=== PATIENT | female | born 1950 | race Caucasian/White ===

== ENCOUNTER → 2018-09-23 10:27 | Outpatient (CLI) | payer MEDICARE, SELFPAY ==
--- NOTE | 2018-09-23 | DI.MG.S_ITS ---
BILATERAL DIGITAL SCREENING MAMMOGRAM 3D/2D WITH CAD: 09/23/2018 CLINICAL: Routine screening. Comparison is made to exams dated: 09/20/2017 mammogram, 09/16/2016 mammogram, and 09/15/2015 mammogram - [facility]. The tissue of both breasts is heterogeneously dense. This may lower the sensitivity of mammography. Current study was also evaluated with a Computer Aided Detection (CAD) system. No significant masses, calcifications, or other findings are seen in either breast. There has been no significant interval change. IMPRESSION: NEGATIVE There is no mammographic evidence of malignancy. A 1 year screening mammogram is recommended. This exam was interpreted at Station ID: [id number]. NOTE: For mammograms, a report in lay terms will be sent to the patient. Approximately 15% of breast malignancies will not be visualized mammographically. In the management of a palpable breast mass, a negative mammogram must not discourage biopsy of a clinically suspicious lesion. Electronically Signed By: Chas ward/steven:09/25/2018 15:49:45 letter sent: Normal Exam ACR BI-RADS Category 1: Negative 3341F
== END ==
PROVIDERS: Family Provider Family Medicine; PCP Family Medicine; Visit Provider Family Medicine
DX: Z12.31 Encounter for screening mammogram for malignant neoplasm of breast (principal)
CPT/HCPCS: 77063; 77067

== ENCOUNTER → 2019-10-03 11:02 | Outpatient (CLI) | payer MEDICARE, SELFPAY ==
--- NOTE | 2019-10-03 | DI.MG.S_ITS ---
BILATERAL DIGITAL SCREENING MAMMOGRAM 3D/2D WITH CAD: 10/03/2019 CLINICAL: Routine screening. Comparison is made to exams dated: 09/20/2017 mammogram and 09/16/2016 mammogram - [facility]. The tissue of both breasts is heterogeneously dense. This may lower the sensitivity of mammography. Current study was also evaluated with a Computer Aided Detection (CAD) system. No significant masses, calcifications, or other findings are seen in either breast. There has been no significant interval change. IMPRESSION: NEGATIVE There is no mammographic evidence of malignancy. A 1 year screening mammogram is recommended. This exam was interpreted at Station ID: [id number]. NOTE: For mammograms, a report in lay terms will be sent to the patient. Approximately 15% of breast malignancies will not be visualized mammographically. In the management of a palpable breast mass, a negative mammogram must not discourage biopsy of a clinically suspicious lesion. Electronically Signed By: Jennifer francisco/steven:10/03/2019 15:34:11 letter sent: Normal Exam ACR BI-RADS Category 1: Negative 3341F
== END ==
PROVIDERS: PCP Family Medicine; Visit Provider Family Medicine
DX: Z12.31 Encounter for screening mammogram for malignant neoplasm of breast (principal)
CPT/HCPCS: 77063; 77067

== ENCOUNTER → 2020-07-23 11:02 | Outpatient (CLI) | payer MEDICARE, SELFPAY ==
--- NOTE | 2020-07-23 | DI.US.S_ITS ---
PROCEDURE: US ABDOMEN COMPLETE INDICATIONS: RIGHT UPPER QUADRANT PAIN TECHNIQUE: Real-time scanning was performed of the abdominal and retroperitoneal organs, with image documentation. COMPARISON: [facility], CR, XR CHEST 2V, 07/23/2020, 11:00. [facility], US, ABDOMEN COMPLETE, 06/27/2015, 15:37. FINDINGS: Liver: Liver is normal in size and homogeneous in echotexture, increased in echogenicity consistent with fatty infiltration. Gallbladder: The gallbladder appears normal. Biliary ducts: Intrahepatic bile ducts are non-dilated. Extrahepatic bile duct caliber measures 2.5 mm. Normal is 6-7 mm or less in diameter, or 10 mm or less post-cholecystectomy. Pancreas: Visualized portions of the pancreas are sonographically normal. Spleen: Spleen is normal in size and homogeneous in echotexture. Kidneys: Kidneys are asymmetric in size and echotexture with right renal cortical atrophy. Right kidney measures 7.4 cm long; left kidney measures 9.7 cm long. No hydronephrosis or nephrolithiasis. No solid masses. Aorta: Visualized aorta is normal in caliber at less than 3 cm. Iliacs: Proximal common iliac arteries are normal in caliber at less than 2.5 cm. IVC: Intrahepatic inferior vena cava is patent. Miscellaneous: No free abdominal fluid. IMPRESSION: Fatty infiltration throughout the liver, no focal liver lesion seen. Note is made of asymmetric renal cortical atrophy on the right, without current hydronephrosis or visualized nephrolithiasis. Dictated by: Carmelo Bosch M.D. on 07/23/2020 at 12:09 Approved by: Carmelo Bosch M.D. on 07/23/2020 at 12:11
--- NOTE | 2020-07-23 | DI.RAD.S_ITS ---
PROCEDURE: XR CHEST 2V INDICATIONS: COUGH, RIGHT RIB AREA PAIN TECHNIQUE: 2 views of the chest were acquired. COMPARISON: [facility], CHEST 2 VIEW, 08/10/2016, 11:05. [facility], CHEST 1 VIEW, 06/29/2015, 11:16. FINDINGS: Surgical changes and devices: None. Lungs and pleura: Lungs are clear. No pleural effusions or pneumothorax. Mediastinum: Mediastinal contours are normal. Heart size is normal. Bones and chest wall: No suspicious bony abnormalities. Soft tissues appear unremarkable. IMPRESSION: Normal for age, source of current cough symptoms is not seen. Dictated by: Carmelo Bosch M.D. on 07/23/2020 at 12:09 Approved by: Carmelo Bosch M.D. on 07/23/2020 at 12:09
== END ==
PROVIDERS: PCP Family Medicine; Referring Provider Family Medicine; Visit Provider Family Medicine
DX: R05 Cough (principal); R07.81 Pleurodynia; R10.11 Right upper quadrant pain; K76.0 Fatty (change of) liver, not elsewhere classified
CPT/HCPCS: 71046; 76700

== ENCOUNTER → 2020-10-08 17:08 | Outpatient (CLI) | payer MEDICARE, SELFPAY ==
--- NOTE | 2020-10-08 17:10 | DI.MG.S_ITS ---
BILATERAL DIGITAL SCREENING MAMMOGRAM 3D/2D WITH CAD: 10/08/2020 CLINICAL: Routine screening. Comparison is made to exams dated: 10/03/2019 mammogram, 09/23/2018 mammogram, and 09/20/2017 mammogram - [facility]. There are scattered fibroglandular elements in both breasts. Current study was also evaluated with a Computer Aided Detection (CAD) system. No significant masses, calcifications, or other findings are seen in either breast. There has been no significant interval change. IMPRESSION: NEGATIVE There is no mammographic evidence of malignancy. A 1 year screening mammogram is recommended. This exam was interpreted at Station ID: [id number]. NOTE: For mammograms, a report in lay terms will be sent to the patient. Approximately 15% of breast malignancies will not be visualized mammographically. In the management of a palpable breast mass, a negative mammogram must not discourage biopsy of a clinically suspicious lesion. Electronically Signed By: Jennifer francisco/steven:10/09/2020 08:55:36 letter sent: Normal Exam ACR BI-RADS Category 1: Negative 3341F
== END ==
PROVIDERS: PCP Family Medicine; Referring Provider Family Medicine; Visit Provider Family Medicine
DX: Z12.31 Encounter for screening mammogram for malignant neoplasm of breast (principal)
CPT/HCPCS: 77063; 77067

== ENCOUNTER → 2021-02-19 14:08 | Outpatient (CLI) | payer MEDICARE, SELFPAY | PROVIDERS: PCP Family Medicine; Referring Provider Family Medicine; Visit Provider Family Medicine | DX: M81.0 Age-related osteoporosis without current pathological fracture (principal); Z78.0 Asymptomatic menopausal state; Z87.891 Personal history of nicotine dependence | CPT/HCPCS: 77080 ==

== ENCOUNTER → 2021-07-20 10:42 | Outpatient (CLI) | payer MEDICARE, SELFPAY ==
--- NOTE | 2021-07-20 | DI.RAD.S_ITS ---
PROCEDURE: XR CHEST 2V INDICATIONS: acute cough TECHNIQUE: 2 views of the chest were acquired. COMPARISON: [facility], CR, XR CHEST 2V, 07/23/2020, 11:00. FINDINGS: Surgical changes and devices: None. Lungs and pleura: Enlarging airspace opacity is seen within the left upper lung zone, now measuring 5.1 cm; previously measuring 1.6 cm. No lobar consolidation, pleural effusions or pneumothorax. Mildly coarsened interstitial markings, which may reflect emphysematous change. Mediastinum: Mediastinal contours are normal. Heart size is normal. Bones and chest wall: No suspicious bony abnormalities. Soft tissues appear unremarkable. IMPRESSION: Round airspace opacity in the left upper lung zone, concerning for neoplastic process. Consider CT imaging for further evaluation. Dictated by: Ruben Contreras M.D. on 07/20/2021 at 11:25 Approved by: Ruben Contreras M.D. on 07/20/2021 at 11:27
== END ==
PROVIDERS: PCP Family Medicine; Referring Provider Family Medicine; Visit Provider Family Medicine
DX: R05.1 Acute cough (principal)
CPT/HCPCS: 71046

== ENCOUNTER → 2021-07-23 08:50 | Outpatient (CLI) | payer MEDICARE, SELFPAY ==
--- NOTE | 2021-07-23 | DI.CT.S_ITS ---
PROCEDURE: CT SINUS SCREEN WO CON INDICATIONS: Acute cough, syncope TECHNIQUE: Noncontrast 3.0 mm axial images acquired from the frontal sinuses to the mid-sella, with coronal and sagittal reformats. For radiation dose reduction, the following was used: automated exposure control, adjustment of mA and/or kV according to patient size. COMPARISON: None. FINDINGS: Maxillary Sinuses: The maxillary sinuses are clear without significant mucosal thickening or air-fluid levels. The ostiomeatal units are patent bilaterally. No significant Faith ethmoid air cells present along the inferior medial orbital garcia. Sphenoid Sinuses: The sphenoethmoidal recesses are patent and unobstructed. The sphenoid sinuses are clear. Sphenoid pneumatization pattern is post-sellar, extending beyond the dorsum sella to the dorsal cortex of the clivus. No [place] or sphenoethmoidal air cells present. The optic nerve is well covered. Frontal Sinuses: The frontal recesses are both patent. The frontal sinuses are clear. Ethmoid Sinuses: The ethmoid air cells are clear without significant mucosal thickening or air-fluid levels. The fovea ethmoidalis and cribriform plate are unremarkable. The lamina papyracea are both structurally intact. Lateral lamella are symmetric. Nasal Cavity and Septum: There is pneumatization of the right middle terminate present. Nasal septum is intact without perforation. Skull Base: The anterior cranial fossa and pituitary sella are unremarkable. No evidence of bony dehiscence. Both osseous orbits and contents are within normal limits. Small incidental radicular cyst noted associated with the left maxillary 1st premolar dentition. IMPRESSION: 1. Incidental right ranjith bullosa. Otherwise unremarkable CT of the paranasal sinuses Approved by: Tyrone Bonilla M.D. on 07/23/2021 at 10:59
[2021-07-23 09:31] LABS: BUN Creatinine Ratio 14.5 (6-22); Blood Urea Nitrogen 10 mg/dL (7-17); Estimated Glomerular Filt Rate > 60.0 mL/min (>60)
--- NOTE | 2021-07-23 09:36 | DI.CT.S_ITS ---
PROCEDURE: CT CHEST W CON INDICATIONS: Acute cough, syncope TECHNIQUE: After the administration of intravenous contrast, 5 mm thick sections acquired from the pulmonary apices to the posterior costophrenic angles. 1 mm axial lung, 5 mm thick coronal and sagittal reformats and 7 mm axial MIP were acquired. For radiation dose reduction, the following was used: automated exposure control, adjustment of mA and/or kV according to patient size. COMPARISON: CT, CHEST/ABD/PEL WITH CONTRAST, 07/02/2015, 10:42. [facility], CR, CHEST 2 VIEW, 08/10/2016, 11:05. [facility], CR, XR CHEST 2V, 07/23/2020, 11:00. [facility], CR, XR CHEST 2V, 07/20/2021, 11:07. FINDINGS: Image quality: Excellent. Lungs and pleura: There is a 3.8 x 4.6 cm mass in the superior segment of left lower lobe, suspicious for lung cancer. A 0.6 cm spiculated nodule is present in the right middle lobe. This could represent a small synchronous lung cancer. Multiple peripheral ground-glass opacities are present bilaterally, suspicious for atypical pneumonia. Trace left pleural effusion adjacent to the left lower lobe lung mass. Mild emphysema. No pneumothorax. Central and peripheral airways are patent and normal in caliber. Mediastinum: Heart size is normal. No pericardial effusion. There is a 1 cm left hilar lymph node suspicious for metastasis.. Thoracic aorta and central pulmonary arteries are normal in size. Esophagus is normal in caliber. No hiatal hernia. Bones and chest wall: No suspicious bony lesions. No vertebral body compression fractures. No axillary or supraclavicular adenopathy by size criteria. There is a 1.2 cm nodule in the right thyroid lobe. Abdomen: Visualized upper abdominal solid organs appear normal. Upper abdominal bowel loops are normal in caliber. IMPRESSION: 1. A 3.8 x 4.6 cm mass in the superior segment of the left lower lobe, highly suspicious for primary lung cancer. A infectious etiology is felt less likely although not entirely excluded. A PET-CT is suggested for further evaluation. This mass is amenable for CT guided percutaneous biopsy if clinically indicated. 2. There is a 0.6 cm spiculated nodule in the right middle lobe, suspicious for a small synchronous lung cancer. This nodule can be evaluated by FDG PET as well. 3. A 1 cm left hilar lymph node is present, suspicious for metastasis. 4. Trace left pleural effusion adjacent to the large left lung mass. 5. Bilateral peripheral ground-glass nodules or nodular infiltrates with morphology and distribution suspicious for COVID-19 pneumonia. Metastatic disease is a differential diagnosis in light of suspected lung cancer. Recommend clinical correlation. 6. Mild emphysema. 7. A 1.2 cm nodule in the right thyroid lobe. Thyroid ultrasound suggested for follow-up The result was discussed with Dr. Alejandre. Dictated by: Jean Watson M.D. on 07/23/2021 at 10:27 Approved by: Jean Watson M.D. on 07/23/2021 at 10:49
== END ==
PROVIDERS: PCP Family Medicine; Referring Provider Family Medicine; Visit Provider Family Medicine
DX: R05.1 Acute cough (principal); R55 Syncope and collapse; R91.8 Other nonspecific abnormal finding of lung field; I10 Essential (primary) hypertension; J34.3 Hypertrophy of nasal turbinates; R59.0 Localized enlarged lymph nodes; J43.9 Emphysema, unspecified; E04.1 Nontoxic single thyroid nodule
CPT/HCPCS: 36415; 70486; 71260; 82565; 84520

== ENCOUNTER → 2021-08-21 09:04 | Outpatient (CLI) | payer MEDICARE, SELFPAY ==
[2021-08-21 11:52] LABS: COVID19 -Nasal RAPID Negative (Negative)
--- NOTE | 2021-08-24 | PATH_ITS ---
[facility] Accession Number: [id number] . 01 Material submitted: . lung - LUNG . 02 Diagnosis: Lung Mass, Superior Segment of Left Lower Lobe, Needle Core Biopsy: Consistent with pulmonary adenocarcinoma by immunohistochemistry studies. MRV 08/27/2021 1701 Local . 02 Comment: As part of routine quality assurance specialist, Dr. Ramos also reviewed this case and agrees with the diagnosis. . Results discussed with Dr. Alejandre on 08-27-21 at approximately 1:42 p.m. . . 02 Electronically signed: . Michelle Jean-Baptiste MD, Pathologist NPI- [id number] . 01 Gross description: . LUNG: Received in formalin are 2 fragment(s) of rowe, soft tissue measuring 0.4 x 0.1 x 0.1 cm to 0.6 x 0.1 x 0.1 cm submitted entirely in 1 cassette(s) /KENDRICK 08/25/2021 0126 Local . 02 Microscopic: . Immunohistochemical stains were performed to further evaluate the cells of interest. The control stains showed appropriate reactivity. . RESULTS: SUMEET: Positive. TTF1: Positive. Napsin-A: Positive. P40: Negative. P63: Scattered positive. . The neoplasm is immunopositive for SUMEET, TTF-1, and Napsin-A with scattered cells positive for p63. The neoplasm is immunonegative for p40. These findings support an interpretation of pulmonary adenocarcinoma, in the appropriate clinical setting. The abscence of p40 immunostaining mitigates against squamous cell differentiation. Very scant tissue remains for further characterization (i.e. there is likely insufficient tissue for molecular studies). . * This test was developed and its performance characteristics determined by [employer]. It has not been cleared or approved by the U.S. Food and Drug Administration. The FDA has determined that such clearance or approval is not necessary. This test is used for clinical purposes. It should not be regarded as investigational or for research. . 02 Pathologist provided ICD-10: R91.8, D49.1 . 02 CPT . 754764, Q41486, E25363 Performed at: 01 [facility] [address] [address], [place], [place] [id number] MD Emmanuel Vega MD Phone: [phone] Performed at: 02 [facility] [id number] [place] [id number] MD Ayala Ramos MD Phone: [phone]
== END ==
PROVIDERS: PCP Family Medicine; Visit Provider Nurse Practitioner Family
DX: Z20.822 Contact with and (suspected) exposure to COVID-19 (principal)
CPT/HCPCS: 87635; C9803

== ENCOUNTER 2021-08-24 07:08 | Outpatient (CLI) | payer MEDICARE, SELFPAY ==
[2021-08-24] VITALS (9 sets, daily range): BP systolic 138–191; BP diastolic 75–90; PULSE 88–126; RESP 16–20; TEMP 36.6–36.8; O2SAT 97–100; BMI 25.0
--- NOTE | 2021-08-24 | DI.CT.S_ITS ---
PROCEDURE: CT BIOPSY LUNG LT Sedation analgesia for 20 minutes. INDICATIONS: LUNG MASS TECHNIQUE: The indications, alternatives, benefits, risks, and possible complications of the procedure were communicated to the patient. Informed written consent from the patient was obtained and placed in the chart. Continuous EKG and hemodynamic monitoring was started by trained personnel. The patient was brought to the CT suite and manager professional development spiral CT imaging was performed with localization grid. The appropriate site for percutaneous access to the biopsy target was marked, was prepped and draped sterilely, and was infused with local anaesthesia. Under CT guidance, a core biopsy trocar and needle set was advanced to the biopsy target, and specimen(s) were obtained. The trocar and needle were then removed, and the patient was sent for post-procedure monitoring. COMPARISON: [facility], DC, NM PET CT FUSION SKULL 2 THIGH, 08/12/2021, 9:45. [facility], CT, CT CHEST W CON, 07/23/2021, 9:47. [facility], CR, XR CHEST 1V, 08/24/2021, 10:29. FINDINGS: Biopsy site: Left lower lobe lung mass. Needle: 20 gauge biopsy needle with introducer trocar. Number of passes: 3 Medications: 1% lidocaine for local anaesthesia. IV Fentanyl and Versed for conscious sedation for 20 minutes (see nursing record). Complications: None. IMPRESSION: Successful CT-guided biopsy of left lower lobe lung mass. No immediate complications. Dictated by: Susanna Espitia MD, PhD on 08/24/2021 at 10:51 Approved by: Susanna Espitia MD, PhD on 08/24/2021 at 10:53
[2021-08-24 07:30] LABS: Add Manual Diff / Slide Review NO; Basophils Absolute Auto 0 /uL (0-100); Basophils Percent Auto 0.8 % (0-2); Eosinophils Absolute Auto 100 /uL (0-450); Hematocrit 35.5 % (36-46); Hemoglobin 11.8 g/dL (12.0-16.0); Lymphocytes Absolute Auto 1100 /uL (1100-4500); Lymphocytes Percent Auto 20.2 % (25-40); Mean Corpuscular HGB Conc 33.2 % (30-36); Mean Corpuscular Hemoglobin 29.6 PG (26-34); Monocytes Absolute Auto 500 /uL (0-900); Monocytes Percent Auto 9.4 % (3-14); Neutrophils Absolute Auto 3700 /uL (1500-7000); Neutrophils Percent Auto 67.6 % (50-75); Platelet Count 494 X10^3/uL (150-400); Red Blood Cell Count 3.99 X10^6/uL (4.0-5.2); Red Cell Distribution Width 13.3 % (11.6-14.8); White Blood Cell Count 5.5 X10^3/uL (4.5-11.0)
[2021-08-24 07:37] LABS: Prothrombin Time 11.3 SECONDS (10.1-12.7)
[2021-08-24] MEDS: fentaNYL 100 MCG/2 ML INJ 50 MCG IV (08:29)
[2021-08-24] MEDS: MIDAZOLAM 2 MG/2 ML VIAL 1 MG IV (08:30)
--- NOTE | 2021-08-24 09:25 | SUR.PHASEII ---
Assumed pt from Shreya ALY. Bandaid with scant shadow drainage. Denied any chest pain, SOB, no cough noted, pt coughing lots preop. Call light in reach, VSS monitored, pt on continuous pulse ox.
--- NOTE | 2021-08-24 10:31 | DI.RAD.S_ITS ---
PROCEDURE: XR CHEST 1V INDICATIONS: POST THORACENTESIS TECHNIQUE: One view of the chest was acquired. COMPARISON: [facility], CT, CT BIOPSY LUNG LT, 08/24/2021, 7:59. [facility], CR, XR CHEST 2V, 07/20/2021, 11:07. FINDINGS: Surgical changes and devices: None. Lungs and pleura: Right lingular mass is again identified and unchanged. No pneumothorax. Mediastinum: Mediastinal contours appear normal. Heart size is normal. Bones and chest wall: No suspicious bony lesions. Overlying soft tissues appear unremarkable. IMPRESSION: No pneumothorax. Dictated by: Lindsey Barnes M.D. on 08/24/2021 at 10:39 Approved by: Lindsey Barnes M.D. on 08/24/2021 at 10:43
--- NOTE | 2021-08-24 13:00 | SUR.PHASEII ---
XRAY obtained, Vi came back, stated pt ok to be d/c'ed. D/C instructions discussed, pt voiced an understanding. Pts ride called, 30 min out. Pt dressed, bandaid with same shadow drainage, pt denied pain, SOB lungs clear. Sats remained greater than 98% while here in OPD. Pt left when ride arrived, left in stable condition.
== END 2021-08-24 11:50 | disposition home or self-care (01) ==
PROVIDERS: PCP Family Medicine; Referring Provider Family Medicine; Visit Provider Family Medicine
PROC: BB24ZZZ Computerized Tomography (CT Scan) of Bilateral Lungs (ICD-10-PCS; CPT 32408; principal; 2021-08-24 08:30)
DX: C34.32 Malignant neoplasm of lower lobe, left bronchus or lung (principal)
CPT/HCPCS: 32408; 36415; 71045; 85025; 85610; J2250; J3010

== ENCOUNTER → 2021-08-27 13:40 | Outpatient (CLI) | payer MEDICARE, SELFPAY ==
[2021-08-27 14:15] LABS: COVID19 -Nasal RAPID Negative (Negative)
== END ==
PROVIDERS: Physician Assistant; PCP Family Medicine; Visit Provider Internal Medicine
DX: Z20.822 Contact with and (suspected) exposure to COVID-19 (principal)
CPT/HCPCS: 87635

== ENCOUNTER → 2021-08-27 14:37 | Outpatient (CLI) | payer MEDICARE, SELFPAY ==
--- NOTE | 2021-09-02 09:22 | PM.PFT.1 ---
Pulmonary Function Test Referral & Results Date Patient Seen: 08/27/21 Requesting provider: Bridget Alejandre Results: The spirometry demonstrates an FVC of 2.58 L which is 78% of predicted. The FEV1 was measured at 1.91 L which is 76% of predicted. The FEV1/FVC ratio was 74 which is 98% of predicted. Following the administration of bronchodilator there was a 38% improvement in FEF 25-75% Lung volumes show an SVC of 3.27 L which is 104% of predicted. The diffusing capacity was measured at 17.74 which is 62% of predicted. No hemoglobin value was provided, so no correction for potential anemia could be made, if appropriate. The maximum voluntary ventilation was normal Interpretation: This study demonstrates possibly mild obstructive lung disease based on reduction FEV1 although FEV1/FVC ratio is preserved. There is also some minimal evidence of benefit particularly small airway flow after bronchodilator administration as above based on improvement in FEF 25-75% Lung volumes are normal There is a moderate reduction diffusing capacity suggesting more significant disease at the capillary alveolar level Clinical correlation suggested
== END ==
PROVIDERS: PCP Family Medicine; Referring Provider Family Medicine; Visit Provider Family Medicine
DX: R05.1 Acute cough (principal); J98.4 Other disorders of lung; J98.8 Other specified respiratory disorders; C34.32 Malignant neoplasm of lower lobe, left bronchus or lung; Z87.891 Personal history of nicotine dependence; Z20.822 Contact with and (suspected) exposure to COVID-19
CPT/HCPCS: 87635; 94060; 94726; 94729; C9803

== ENCOUNTER → 2021-09-21 12:30 | Outpatient (CLI) | payer MEDICARE, SELFPAY ==
--- NOTE | 2021-09-21 | DI.MRI.S_ITS ---
PROCEDURE: MR HEAD/BRAIN WO/W CON INDICATIONS: Cancer staging TECHNIQUE: Noncontrast axial T1 spin echo, axial T2 fast spin echo, sagittal and axial FLAIR, coronal T2 fast spin echo, axial gradient echo, axial diffusion and ADC through the brain. After the administration of contrast, axial and coronal T1 spin echo with fat saturation through the brain. COMPARISON: [facility], NM, NM PET CT FUSION SKULL 2 THIGH, 08/12/2021, 9:45. [facility], CT, CT CHEST W CON, 07/23/2021, 9:47. [facility], CT, CT BIOPSY LUNG LT, 08/24/2021, 7:59. [facility], CT, CT SINUS SCREEN WO CON, 07/23/2021, 9:47. FINDINGS: Image quality: Excellent. CSF spaces: Basal cisterns are patent. No extra-axial fluid collections. Ventricles are normal in size and shape. Brain: No midline shift. No intracranial bleeds or masses. No abnormal intracranial enhancement. Brain parenchymal volume loss is seen. Several foci of T2 hyperintensity can be seen within the white matter. The brainstem appears normal. Diffusion-weighted images demonstrate no acute ischemic insults. No chronic ischemic insults. Normal intravascular flow voids are present. There is a medial left frontal developmental venous anomaly seen, as on series 15, image 66 and on series 13, image 132 and on series 14, image 88. Skull and face: Calvarial marrow is normal in signal. Orbits appear normal. Sinuses: Sinuses and mastoids appear clear. IMPRESSION: No masses or abnormal enhancement can be seen to suggest intracranial metastatic disease. Brain parenchymal volume loss is seen. T2 hyperintense foci can be seen within the white matter, which are statistically most likely related to chronic small vessel ischemic change in a patient of this age. However, differential diagnosis would include a demyelinating process. Dictated by: Ronald Alvarez M.D. on 09/21/2021 at 12:40 Approved by: Ronald Alvarez M.D. on 09/21/2021 at 12:43
== END ==
PROVIDERS: PCP Family Medicine; Referring Provider Surgery; Visit Provider Surgery
DX: C34.32 Malignant neoplasm of lower lobe, left bronchus or lung (principal)
CPT/HCPCS: 70553; A9579

== ENCOUNTER → 2021-10-07 11:37 | Outpatient (ROUT) | payer MEDICARE, SELFPAY ==
[2021-10-07 12:28] LABS: COVID-19 CEPHEID PCR (VTM/NP) Negative (Negative)
== END ==
PROVIDERS: Visit Provider Family Medicine
DX: Z20.822 Contact with and (suspected) exposure to COVID-19 (principal); Z11.52 Encounter for screening for COVID-19
CPT/HCPCS: U0003

== ENCOUNTER → 2021-10-29 16:21 | Outpatient (CLI) | payer MEDICARE, SELFPAY ==
--- NOTE | 2021-10-29 | DI.MG.S_ITS ---
BILATERAL DIGITAL SCREENING MAMMOGRAM 3D/2D WITH CAD: 10/29/2021 CLINICAL: Routine screening. Comparison is made to exams dated: 10/08/2020 mammogram, 10/03/2019 mammogram, and 09/23/2018 mammogram - [facility]. The tissue of both breasts is heterogeneously dense. This may lower the sensitivity of mammography. Current study was also evaluated with a Computer Aided Detection (CAD) system. No significant masses, calcifications, or other findings are seen in either breast. There has been no significant interval change. IMPRESSION: NEGATIVE There is no mammographic evidence of malignancy. A 1 year screening mammogram is recommended. This exam was interpreted at Station ID: [id number]. NOTE: For mammograms, a report in lay terms will be sent to the patient. Approximately 15% of breast malignancies will not be visualized mammographically. In the management of a palpable breast mass, a negative mammogram must not discourage biopsy of a clinically suspicious lesion. Electronically Signed By: Emmanuel herrera/steven:10/30/2021 08:55:13 letter sent: Normal Exam ACR BI-RADS Category 1: Negative 3341F
== END ==
PROVIDERS: PCP Family Medicine; Referring Provider Family Medicine; Visit Provider Family Medicine
DX: Z12.31 Encounter for screening mammogram for malignant neoplasm of breast (principal)
CPT/HCPCS: 77063; 77067

== ENCOUNTER → 2021-11-27 09:27 | Outpatient (CLI) | payer MEDICARE, SELFPAY ==
[2021-11-27 10:17] LABS: COVID19 -Nasal RAPID Negative (Negative)
== END ==
PROVIDERS: PCP Family Medicine; Visit Provider Surgery
DX: Z01.812 Encounter for preprocedural laboratory examination (principal); Z20.822 Contact with and (suspected) exposure to COVID-19
CPT/HCPCS: 87635; C9803

== ENCOUNTER 2021-11-30 10:33 | Day surgery (SDC) | payer MEDICARE, SELFPAY ==
[2021-11-23 15:03] VITALS: BMI 25.0
[2021-11-30] VITALS (7 sets, daily range): BP systolic 137–175; BP diastolic 63–78; PULSE 80–94; RESP 16–20; TEMP 36.3–36.6; O2SAT 94–100; BMI 25.0
--- NOTE | 2021-11-30 | DI.RAD.S_ITS ---
PROCEDURE: XR CHEST 1V INDICATIONS: Port A CATH PLACEMENT TECHNIQUE: One view of the chest was acquired. COMPARISON: [facility], CT, CT CHEST WITH CONTRAST, 11/19/2021, 15:14. [facility], CR, XR CHEST 1V, 08/24/2021, 10:29. FINDINGS: Surgical changes and devices: Right-sided Port-A-Cath is present distal tip projecting over the proximal SVC. Lungs and pleura: Increased appearance of right mid lobe pulmonary masslike opacity. No pneumothorax. Mediastinum: Mediastinal contours appear normal. Heart size is normal. Bones and chest wall: No suspicious bony lesions. Overlying soft tissues appear unremarkable. IMPRESSION: Port-A-Cath as above without pneumothorax. Dictated by: Lindsey Barnes M.D. on 11/30/2021 at 15:14 Approved by: Lindsey Barnes M.D. on 11/30/2021 at 15:21
[2021-11-30] MEDS: LACTATED RINGERS 1,000 ML 42 ML IV (11:49)
--- NOTE | 2021-11-30 12:36 | PM.HP.1 ---
History of Present Illness History of Present Illness Date Patient Seen: 11/30/21 Time Patient Seen: 12:37 Chief complaint: SDC Narrative: Vidhi is a 71-year-old woman with a recent diagnosis of left lung cancer and she is status post mediastinoscopy for staging. She is here for a Port-A-Cath for chemotherapy. Never had surgery on her right neck or a fractured clavicle. 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) Family & Social History Social History: household members spouse Tobacco & Substance use: Tobacco type cigarettes Smoking Status Former smoker alcohol intake current alcohol intake frequency holiday/special occasion Substance Use Type does not use Meds Home Medications and Allergies Home Medications Medication Instructions Recorded Confirmed Type calcium citrate 200 mg (950 mg) 600 mg PO BID #0 06/11/17 11/30/21 History tablet (Calcitrate) omeprazole 20 mg capsule,delayed See Rx Instructions .ROUTE .COMPLEX 01/31/18 11/30/21 History release amlodipine 2.5 mg tablet 2.5 mg PO BID 08/24/21 11/30/21 History lorazepam 0.5 mg tablet 0.5 mg PO DAILY 08/24/21 11/23/21 History losartan 100 mg tablet 100 mg PO DAILY 08/24/21 11/30/21 History sertraline 50 mg tablet 50 mg PO DAILY 08/24/21 11/30/21 History aspirin 81 mg capsule 81 mg PO DAILY 09/02/21 11/30/21 History cholecalciferol (vitamin D3) 25 25 mcg PO DAILY 09/02/21 11/30/21 History mcg (1,000 unit) capsule (Vitamin D3) codeine 10 mg-guaifenesin 300 mg 1 tab PO PRN PRN 09/02/21 11/30/21 History tablet diphenhydramine HCl 25 mg capsule 25 mg DAILY 09/02/21 11/23/21 History methocarbamol 500 mg tablet 500 mg DAILY 09/02/21 11/23/21 History multivitamin 1 tab PO DAILY 09/02/21 11/30/21 History Tylenol 500 mg PO PRN PRN 11/30/21 11/30/21 History Allergies Allergy/AdvReac Type Severity Reaction Status Date / Time Sulfa (Sulfonamide Allergy Severe Rash Verified 11/30/21 11:13 Antibiotics) [SULFA (SULFONAMIDE ANTIBIOTICS)] Penicillins [PENICILLINS] Allergy Unknown Verified 11/30/21 11:13 Exam Vital Signs (past 8 hours): - 11/30/21 11:22 Temperature 97.5 F L Pulse Rate 94 H Respiratory Rate 16 Blood Pressure 137/78 Pulse Oximetry 100 Oxygen Delivery Method Room Air Const General: comfortable HENMT Other: Healing mediastinoscopy incision Assessment & Plan Assessment and plan (1) Lung cancer: Qualifiers: Laterality: left Lung location: lower lobe of lung Qualified Code(s): C34.32 - Malignant neoplasm of lower lobe, left bronchus or lung Status: Acute Plan 71-year-old woman in need of a Port-A-Cath for chemotherapy for lung cancer. We reviewed the risks and benefits and she would like to proceed. COVID-19 COVID-19 status: Negative Result date/Date tested (Pos, Neg/Pending): 11/27/21 Time Spent With Patient Critical Care time: I spent a total of [] minutes of critical care time on this patient's care today; this time is exclusive of procedural time.
[2021-11-30] MEDS: CLINDAMYCIN 600 MG/50 ML PIGGYBACK 50 MG IV (13:00)
--- NOTE | 2021-11-30 13:31 | SUR.OPER ---
Supine on padded OR bed, head on gel donut arms padded and tucked at sides, legs uncrossed, safety belt at thigh, tape over blanket over lower legs . Gel pad placed under heels.
[2021-11-30] MEDS: HEPARIN 5,000 UNIT, SODIUM CHLORIDE 0.9% 50 ML IV (13:38)
[2021-11-30] MEDS: BUPIVACAINE 0.5% (PF) VIAL 30 ML INJ (13:39)
[2021-11-30] MEDS: LIDOCAINE 1% W/EPI 20 ML INJ (13:40)
[2021-11-30] MEDS: SODIUM CHLORIDE 0.9% 50 ML 30 ML INJ (13:42)
--- NOTE | 2021-11-30 14:18 | P.OP_ITS ---
Operative Date/Time/Diagnoses Date of procedure: 11/30/21 Time of procedure: 14:18 Pre-op diagnosis: Lung cancer Post-op diagnosis: same Procedure & Clinicians Procedure: Port-A-Cath Same procedure as scheduled: Yes Indications: Lung cancer Surgeon: Rivas Diaz Anesthesia Type: General Operative Notes Estimated Blood Loss (mL): 10 Procedure in detail: The patient was brought to the operating room, placed on the table in the supine position with the arms tucked. Antibiotics were administered. Anesthesia was induced via LMA. A time-out was performed. The right chest and neck were prepped and draped in the usual fashion. An ultrasound was used to identify the right internal jugular vein. The vein was noted to be patent. An image was saved and printed and placed in the chart. The right internal jugular vein was accessed via the Seldinger technique under ultrasound guidance. The guidewire was inserted into the superior vena cava. C-arm was used to confirm proper position of the guidewire in the superior vena cava and no ectopy was noted. The needle was removed and the wire was clamped to the drape. Next, a port pocket was created just inferior to the medial clavicle using a 15 blade scalpel. Dissection was carried down to the pectoral fascia. A subcutaneous pocket was created using a combination of cautery and blunt dissection. Next, the port which was primed with injectable saline, was secured to the fascia with 3-0 PDS sutures left untied and clamped. The neck incision was extended with an 11 blade scalpel to approximately 5 mm. The dilator and peel-away sheath were inserted over the wire without resistance. The catheter was passed from the neck incision to the chest incision in the subcutaneous tissue using the tunnelling device. The wire and dilator were then removed and the catheter inserted through the peel-away sheath to deliver it into the superior vena cava. The depth of the device was checked using the C-arm and the tip of the device was noted to be in the distal superior vena cava. The exterior portion of the catheter was then trimmed and attached to the port using the strain relief collar. A final image showed good position of the catheter with no kinks. The port was then tucked into the subcutaneous pocket and the sutures were tied to secure the device. The port was then accessed using the Cunha needle and it was noted that the device paige and flushed easily without resistance. Approximately 4 mL of heparinized saline were injected into the device. The skin incisions were closed with 3-0 Vicryl and 4-0 Monocryl. S saqib-Strips were applied patient was awakened and brought to recovery room EBL: 5 mL Ultrasound: The right internal jugular vein was patent. The right carotid artery was visualized adjacent to the vein. Venipuncture was visualized in real-time using the ultrasound. Fluoroscopy: The device was positioned appropriately with the distal end of the catheter near the atriocaval junction. There were no kinks in the catheter. Post-operative Condition: stable Disposition: PACU
--- NOTE | 2021-11-30 15:24 | SUR.PHASEII ---
11/30/[id number]-[place] from [facility]. reports cxr done and cleared for discharge. vss. no pain.tolerating fluids. 1500-both rt neck and rt upper chest dressing cdi. ice pack prn. no swelling/hematoma. 1505-completed home care instructions and given paperwork,information to [employer], and all information from [facility] from OR , in plastic zip lock large bag. 1515-dressings cdi.no changes. dressed self . ride co-ordinated. 1518-Discharged to home to by wheelchair with all paperwork and belongings.
== END 2021-11-30 15:18 | disposition home or self-care (01) ==
PROVIDERS: PCP Family Medicine; Referring Provider Surgery; Visit Provider Surgery
PROC: (CPT 36561; principal; 2021-11-30 13:00)
DX: C34.32 Malignant neoplasm of lower lobe, left bronchus or lung (principal); Z87.891 Personal history of nicotine dependence
CPT/HCPCS: 36561; 71045; 76000; C1788; J1644; J2704; J3010

== ENCOUNTER 2022-04-10 12:19 | Inpatient (IN) | payer MEDICARE, SELFPAY ==
[2022-04-10] VITALS (25 sets, daily range): BP systolic 96–137; BP diastolic 50–67; PULSE 83–114; RESP 22–37; TEMP 36.4–36.6; O2SAT 76–98; BMI 25.9
--- NOTE | 2022-04-10 12:29 | DI.RAD.S_ITS ---
PROCEDURE: XR CHEST 1V INDICATIONS: shortness of breath TECHNIQUE: One view of the chest was acquired. COMPARISON: [facility], CR, XR CHEST 1V, 11/30/2021, 14:25. FINDINGS: Surgical changes and devices: Right-sided Port-A-Cath in place. Lungs and pleura: Patchy bilateral pulmonary infiltrates present with perihilar prominence. Pleural spaces are clear. Mediastinum: Mediastinal contours appear normal. Heart size is normal. Atherosclerotic vascular calcification noted in the aortic arch. Bones and chest wall: No suspicious bony lesions. Overlying soft tissues appear unremarkable. IMPRESSION: Patchy bilateral pulmonary infiltrates, increased from the prior Approved by: Tyrone Bonilla M.D. on 04/10/2022 at 12:29
[2022-04-10 13:07] LABS: Add Manual Diff / Slide Review NO; Basophils Absolute Auto 0 /uL (0-100); Basophils Percent Auto 0.3 % (0-2); Eosinophils Absolute Auto 0 /uL (0-450); Eosinophils Percent Auto 0.4 % (2-4); Hematocrit 31.7 % (36-46); Lymphocytes Absolute Auto 300 /uL (1100-4500); Lymphocytes Percent Auto 2.7 % (25-40); Mean Corpuscular HGB Conc 34.6 % (30-36); Mean Corpuscular Hemoglobin 31.7 PG (26-34); Mean Corpuscular Volume 91.5 fL (80-100); Monocytes Absolute Auto 100 /uL (0-900); Monocytes Percent Auto 1.4 % (3-14); Neutrophils Absolute Auto 9400 /uL (1500-7000); Neutrophils Percent Auto 95.2 % (50-75); Platelet Count 219 X10^3/uL (150-400); Red Blood Cell Count 3.47 X10^6/uL (4.0-5.2); Red Cell Distribution Width 16.1 % (11.6-14.8); White Blood Cell Count 9.9 X10^3/uL (4.5-11.0)
--- NOTE | 2022-04-10 13:13 | PC.NURSE ---
This RN was at bedside helping pt to bedside commode to use bathroom. Pt was on 6 L via NC at 90%. Pt desated to lower 60's quickly after pivot transfer to commode. This RN placed a non-rebreather at 15 L/min. RT called. Pt was transferred back to bed. RT at bedside now. Lab called to report COVID + result. MD Alegre aware.
[2022-04-10 13:14] LABS: COVID19 -Nasal RAPID POSITIVE (Negative)
[2022-04-10 13:16] LABS: Alanine Aminotransferase 45 IU/L (<35); Albumin 3.1 g/dL (3.5-5.0); Albumin Globulin Ratio 1.2 (1.0-2.8); Alkaline Phosphatase 88 U/L (38-126); Aspartate Aminotransferase 56 IU/L (14-36); Bilirubin Total 0.5 mg/dL (0.2-1.3); Blood Urea Nitrogen 16 mg/dL (7-17); Calcium 8.3 mg/dL (8.4-10.2); Carbon Dioxide 26 mmol/L (22-32); Chloride 95 mmol/L (98-107); Estimated Glomerular Filt Rate > 60 mL/min (>60); Globulin 2.6 g/dL (1.7-4.1); Glucose 102 mg/dL (80-110); HEMOLYSIS < 15 (0-50); Lactate (Lactic Acid) 1.2 mmol/L (0.7-2.1); Potassium 3.8 mmol/L (3.4-5.1); Sodium 126 mmol/L (137-145); Total Protein 5.7 g/dL (6.3-8.2)
--- NOTE | 2022-04-10 13:21 | PC.NURSE ---
Initial assessment: Pt reports recent pneumonitis three weeks ago and lung cancer that was diagnosed in July. Pt also reports COVID in February. Pt was feeling generally weak and dizzy this morning and fell back on her bottom. Denies blood thinners, LOC, or injury to head. Medics reported her O2 saturation was in low 50's, GCS 15 at arrival. Pt was given a neb treatment and placed on 4 L NC by medics. Pt is short of breath with blue-tinged fingers. Pt is bumped up to 6L via NC at arrival. RT called and MD Alegre updated. Pt reprots Dr. Briscoe as her oncologist. Call light within reach. Frequent checks by this RN and JERMAIN Diego.
--- NOTE | 2022-04-10 13:27 | DI.CT.S_ITS ---
PROCEDURE: CT ANGIO CHEST PE PROTOCOL INDICATIONS: 71-year-old female with dyspnea and COVID positivity, lung cancer TECHNIQUE: After the administration of intravenous contrast, 2 mm thick sections acquired from the pulmonary apices to the posterior costophrenic angles. For radiation dose reduction, the following was used: automated exposure control, adjustment of mA and/or kV according to patient size. COMPARISON: [facility], CT, CT ANGIO CHEST PE, 03/15/2022, 11:22. FINDINGS: Image quality: Excellent. Pulmonary arteries: Pulmonary arteries are normal in size, and demonstrate no intraluminal filling defects to suggest central pulmonary embolism. Lungs and pleura: Bilateral pulmonary alveolar infiltrates with mixed ground-glass densities, significantly increased from the prior exam. A rounded atelectasis noted in the left lung measuring 3 cm left-sided small pleural effusion noted as well. Mediastinum: Heart size is normal, without pericardial effusion. No mediastinal or hilar adenopathy. Thoracic aorta is normal in caliber and enhancement. Esophagus is normal in caliber. Small hiatal hernia. Bones and chest wall: No suspicious bony lesions. Ribs and thoracic spine appear intact throughout. Thyroid gland unremarkable. No axillary or supraclavicular adenopathy. Abdomen: Visualized upper abdominal solid organs appear normal in the early arterial phase of enhancement. IMPRESSION: Bilateral alveolar and ground-glass opacities consistent with viral pneumonia or pneumonitis, increased from the prior No evidence of pulmonary embolism aortic dissection or aneurysm. Approved by: Tyrone Bonilla M.D. on 04/10/2022 at 14:08
--- NOTE | 2022-04-10 13:28 | ED.SOB ---
HPI - SOB/Dyspnea General Chief Complaint: Shortness of Breath/Dyspnea Stated Complaint: Fall Time Seen by Provider: 04/10/22 13:15 Source: patient and EMS Mode of arrival: EMS History of Present Illness HPI Narrative: Patient brought in by ambulance for complaints of dizziness and dyspnea. Sudden onset today. She states she did fall but denies any pain or injury from the fall. Patient states she tested positive for COVID back in March 15. She did resolved from this symptoms. She is COVID vaccinated. Otherwise no recent cough cold congestion fever chills. Denies any chest pain. Denies any previous lung infections. History of left lung cancer and last treatment radiation/chemotherapy was in December/January of this year. Patient sees Dr. Lentz with [facility] oncology. Patient on 40 L and 100% right now on high-flow. Patient was on non-rebreather here and was getting worse. However patient speaking full sentences. In no distress at this time. No changes with breathing treatment here. Related Data Home Medications Medication Instructions Recorded Confirmed calcium citrate 200 mg (950 mg) 600 mg PO BID ##0 06/11/17 04/10/22 tablet (Calcitrate) omeprazole 20 mg capsule,delayed 20 mg PO BID 01/31/18 04/10/22 release amlodipine 2.5 mg tablet 2.5 mg PO BID 08/24/21 04/10/22 lorazepam 0.5 mg tablet 0.5 mg PO DAILY 08/24/21 04/10/22 losartan 100 mg tablet 100 mg PO DAILY 08/24/21 04/10/22 sertraline 50 mg tablet 50 mg PO DAILY 08/24/21 04/10/22 aspirin 81 mg capsule 81 mg PO DAILY 09/02/21 04/10/22 cholecalciferol (vitamin D3) 25 25 mcg PO DAILY 09/02/21 04/10/22 mcg (1,000 unit) capsule (Vitamin D3) codeine 10 mg-guaifenesin 300 mg 1 tab PO PRN PRN Cough 09/02/21 04/10/22 tablet diphenhydramine HCl 25 mg capsule 25 mg DAILY 09/02/21 04/10/22 multivitamin 1 tab PO DAILY 09/02/21 04/10/22 Tylenol 500 mg PO PRN PRN Severe Pain 03/07/22 07/16/22 (Scale Score 7-10) Allergies Allergy/AdvReac Type Severity Reaction Status Date / Time Sulfa (Sulfonamide Allergy Severe Rash Verified 01/20/22 10:45 Antibiotics) [SULFA (SULFONAMIDE ANTIBIOTICS)] Penicillins [PENICILLINS] Allergy Unknown Verified 01/20/22 10:45 Review of Systems Review of Systems Narrative: GENERAL: Denies chills, fatigue, malaise, fever, sweats. HEENT: Denies sinus pain, ear pain, sore throat RESPIRATORY: Positive for dyspnea, negative for cough CARDIOVASCULAR: Denies chest pain, palpitations GASTROINTESTINAL: Denies nausea, vomiting, abdominal pain : Denies dysuria, frequency, hematuria MUSCULOSKELETAL: denies muscle or bony pain SKIN: Denies rash, skin lesions NEUROLOGIC: Denies weakness, numbness, positive for dizziness ROS Unobtainable: All systems reviewed & are unremarkable except as noted in HPI and below 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 EYES: Pupils equal round No scleral icterus. ENT: Mucous membranes moist. NECK: Trachea midline. CARDIOVASCULAR: Regular rate and rhythm without murmurs RESPIRATORY: Clear to auscultation. Breath sounds equal bilaterally. No wheezes, rales, or rhonchi. Speaking full sentences. GASTROINTESTINAL: Abdomen soft, non-tender EXTREMITIES: No gross deformities. No calf tenderness or edema. No palpable cords. BACK: No flank tenderness. NEURO: AOx4. SKIN: Warm and dry PSYCH: Not anxious, is cooperative Initial Vital Signs Initial Vital Signs: Vital Signs Pulse Rate 114 H 04/10/22 12:25 Respiratory Rate 29 H 04/10/22 12:25 Pulse Oximetry 92 04/10/22 12:25 Oxygen Flow Rate 6 04/10/22 12:25 Course Course Course Narrative: No new issues during course of stay Decision to Admit Date: 04/10/22 Decision to Admit time: 13:32 Orders Ordered: ED Orders 04/10/22 11:27 COVID19 -Nasal RAPID/Pre-Proc Stat 04/10/22 12:29 XR chest 1V Stat EKG-12 Lead Stat 04/10/22 12:54 BNP [NT-proBNP (BNP-Adult 18+)] Stat Complete Blood Count AUTO DIFF Stat Comprehensive Metabolic Panel Stat Lactate (Lactic Acid) Stat 04/10/22 13:27 CT angio chest PE protocol Stat Acetaminophen (Acetaminophen 325 Mg Tablet) 650 mg PO Q6HR REGINA Hydrocodone Bitart/Acetaminophen (Hydrocodone/Acet 5/325 Tablet) 1 tab PO Q8H PRN PRN Reason: pain Amlodipine Besylate (Amlodipine 5 Mg Tablet) 2.5 mg PO BID [facility] Aspirin (Aspirin Ec 81 Mg Tablet) 81 mg PO DAILY [facility] Dexamethasone (Dexamethasone 10 Mg/Ml Vial) 6 mg IV DAILY [facility] Enoxaparin Sodium (Enoxaparin 40 Mg/0.4 Ml Syringe) 40 mg SUBCUT DAILY [facility] Remdesivir 100 mg/ Sodium (Chloride) 250 mls @ 250 mls/hr IV DAILY [facility] Stop: 04/14/22 09:59 Azithromycin 500 mg/ Dextrose 250 mls @ 250 mls/hr IV Q24H [facility] Last Admin: 04/10/22 18:11 Dose: 250 mls/hr Documented By: MeghanaT Losartan Potassium (Losartan 50 Mg Tablet) 100 mg PO DAILY [facility] Pantoprazole Sodium (Pantoprazole 40 Mg Vial) 40 mg IV DAILY [facility] Sertraline HCl (Sertraline 50 Mg Tablet) 50 mg PO DAILY [facility] Discontinued Medications Dexamethasone (Dexamethasone 10 Mg/Ml Vial) 6 mg IV NOW ONE Stop: 04/10/22 15:37 Last Admin: 04/10/22 15:40 Dose: 6 mg Documented By: AT Remdesivir 200 mg/ Sodium (Chloride) 250 mls @ 250 mls/hr IV NOW ONE Stop: 04/10/22 16:35 Last Infusion: 04/10/22 18:10 Dose: 0 mls/hr Documented By: Admin: 04/10/22 16:10 Dose: 250 mls/hr Documented By: EDUIN Reevaluation(s) Reevaluation #1: Spoke with patient and son results of CT scan. No PE. Do understand admission Time: 15:22 Consultations Consultation #1: Spoke with primary care utilization management um nurse Dr. Jayme Hunter, he will admit to ICU Time: 15:35 Vital Signs Vital signs: Vital Signs - 8 hr 04/10/22 12:27 04/10/22 12:25 04/10/22 12:30 Temperature 98 F Pulse Rate 108 H 114 H 109 H Respiratory Rate 30 H 29 H 29 H Blood Pressure 96/50 L Pulse Oximetry 91 92 91 Oxygen Delivery Method Nasal Cannula Oxygen Flow Rate 6 6 04/10/22 12:37 04/10/22 12:37 04/10/22 12:45 Temperature Pulse Rate 108 H Respiratory Rate 28 H Blood Pressure 96/50 L 98/52 L Pulse Oximetry 92 Oxygen Delivery Method Oxygen Flow Rate 6 04/10/22 12:45 04/10/22 13:00 04/10/22 13:00 Temperature Pulse Rate 107 H 109 H Respiratory Rate 30 H 36 H Blood Pressure 104/56 L Pulse Oximetry 95 92 Oxygen Delivery Method Nasal Cannula Oxygen Flow Rate 6 6 04/10/22 13:15 04/10/22 13:15 04/10/22 13:34 Temperature Pulse Rate 102 H 93 H Respiratory Rate 28 H 24 Blood Pressure 99/53 L 99/53 L Pulse Oximetry 87 L 95 Oxygen Delivery Method Non -Rebreather Oxygen Flow Rate 04/10/22 14:02 04/10/22 13:30 04/10/22 13:30 Temperature Pulse Rate 93 H 91 H Respiratory Rate 22 25 H Blood Pressure 99/53 L 107/55 L Pulse Oximetry 96 97 Oxygen Delivery Method Oxygen Flow Rate 04/10/22 14:00 04/10/22 14:01 04/10/22 14:01 Temperature Pulse Rate 101 H 100 H Respiratory Rate 28 H 31 H Blood Pressure 134/61 Pulse Oximetry 97 96 Oxygen Delivery Method Heated High Flow Oxygen Flow Rate 04/10/22 14:15 04/10/22 14:15 04/10/22 14:30 Temperature Pulse Rate 93 H Respiratory Rate 24 Blood Pressure 126/58 L 120/57 L Pulse Oximetry 95 Oxygen Delivery Method Heated High Flow Oxygen Flow Rate 50 04/10/22 14:30 04/10/22 15:00 04/10/22 15:01 Temperature Pulse Rate 98 H 92 H 92 H Respiratory Rate 26 H 30 H 29 H Blood Pressure Pulse Oximetry 92 94 94 Oxygen Delivery Method Oxygen Flow Rate 04/10/22 15:01 04/10/22 15:15 04/10/22 15:15 Temperature Pulse Rate 90 Respiratory Rate 26 H Blood Pressure 99/51 L 107/53 L Pulse Oximetry 95 Oxygen Delivery Method Oxygen Flow Rate 04/10/22 15:30 04/10/22 15:30 Temperature Pulse Rate 90 Respiratory Rate 26 H Blood Pressure 125/67 Pulse Oximetry 98 Oxygen Delivery Method Oxygen Flow Rate MDM - SOB/Dyspnea Differential Diagnosis Differential diagnosis: Likely acute exacerbation of chronic obstructive airways disease, congestive heart failure, community acquired pneumonia, asthma with exacerbation and pulmonary embolism Lab Data Result diagrams: 04/10/22 12:54 04/10/22 12:54 Labs: Lab Results 04/10/22 04/10/22 04/10/22 Range/Units 06:30 11:27 12:54 WBC 9.9 (4.5-11.0) X10^3/uL RBC 3.47 L (4.0-5.2) X10^6/uL Hgb 11.0 L (12.0-16.0) g/dL Hct 31.7 L (36-46) % MCV 91.5 (80-100) fL MCH 31.7 (26-34) PG MCHC 34.6 (30-36) % RDW 16.1 H (11.6-14.8) % Plt Count 219 (150-400) X10^3/uL Neut % (Auto) 95.2 H (50-75) % Lymph % (Auto) 2.7 L (25-40) % [place] % (Auto) 1.4 L (3-14) % Eos % (Auto) 0.4 L (2-4) % Baso % (Auto) 0.3 (0-2) % Neut # (Auto) 9400 H (3965-8603) /uL Lymph # (Auto) 300 L (8735-3690) /uL [place] # (Auto) 100 (0-900) /uL Eos # (Auto) 0 (0-450) /uL Baso # (Auto) 0 (0-100) /uL Sodium (137-145) mmol/L Potassium (3.4-5.1) mmol/L Chloride (98-107) mmol/L Carbon Dioxide (22-32) mmol/L BUN (7-17) mg/dL Creatinine (0.52-1.04) mg/dL Estimated GFR (>60) mL/min BUN/Creatinine Ratio (6-22) Glucose (80-110) mg/dL Lactate (0.7-2.1) mmol/L Calcium (8.4-10.2) mg/dL Total Bilirubin (0.2-1.3) mg/dL AST (14-36) IU/L ALT (<35) IU/L Alkaline Phosphatase (38-126) U/L NT-Pro-B Natriuret Pep (<125) pg/mL Total Protein (6.3-8.2) g/dL Albumin (3.5-5.0) g/dL Globulin (1.7-4.1) g/dL Albumin/Globulin Ratio (1.0-2.8) Nasal Screen MRSA (PCR) Negative for mrsa (Negative) SARS-CoV-2 (PCR) Positive H (Negative) 04/10/22 04/10/22 04/10/22 Range/Units 12:54 12:54 12:54 WBC (4.5-11.0) X10^3/uL RBC (4.0-5.2) X10^6/uL Hgb (12.0-16.0) g/dL Hct (36-46) % MCV (80-100) fL MCH (26-34) PG MCHC (30-36) % RDW (11.6-14.8) % Plt Count (150-400) X10^3/uL Neut % (Auto) (50-75) % Lymph % (Auto) (25-40) % [place] % (Auto) (3-14) % Eos % (Auto) (2-4) % Baso % (Auto) (0-2) % Neut # (Auto) (2413-9003) /uL Lymph # (Auto) (3640-2639) /uL [place] # (Auto) (0-900) /uL Eos # (Auto) (0-450) /uL Baso # (Auto) (0-100) /uL Sodium 126 L (137-145) mmol/L Potassium 3.8 (3.4-5.1) mmol/L Chloride 95 L (98-107) mmol/L Carbon Dioxide 26 (22-32) mmol/L BUN 16 (7-17) mg/dL Creatinine 0.80 (0.52-1.04) mg/dL Estimated GFR > 60 (>60) mL/min BUN/Creatinine Ratio 20.0 (6-22) Glucose 102 (80-110) mg/dL Lactate 1.2 (0.7-2.1) mmol/L Calcium 8.3 L (8.4-10.2) mg/dL Total Bilirubin 0.5 (0.2-1.3) mg/dL AST 56 H (14-36) IU/L ALT 45 H (<35) IU/L Alkaline Phosphatase 88 (38-126) U/L NT-Pro-B Natriuret Pep 1430 H (<125) pg/mL Total Protein 5.7 L (6.3-8.2) g/dL Albumin 3.1 L (3.5-5.0) g/dL Globulin 2.6 (1.7-4.1) g/dL Albumin/Globulin Ratio 1.2 (1.0-2.8) Nasal Screen MRSA (PCR) (Negative) SARS-CoV-2 (PCR) (Negative) Imaging Data CT scan - chest: Radiologist's Impression: [address] [address] [address] Scan Report Signed Patient: Vidhi Chow MR#: [id number] : 1950 Acct:[id number] Age/Sex: 71 / F Date of Service: 04/10/22 Loc: ED Accession Number: [id number] ?? Procedure: CT angio chest PE protocol Ordering Provider: Tyler Alegre MD PROCEDURE:? CT ANGIO CHEST PE PROTOCOL ? INDICATIONS:? 71-year-old female with dyspnea and COVID positivity, lung cancer ? TECHNIQUE:? After the administration of intravenous contrast, 2 mm thick sections acquired from the pulmonary apices to the posterior costophrenic angles.? For radiation dose reduction, the following was used:? automated exposure control, adjustment of mA and/or kV according to patient size.? ? COMPARISON:? [facility], CT, CT ANGIO CHEST PE, 03/15/2022, 11:22. ? FINDINGS:? Image quality:? Excellent.? ? Pulmonary arteries:? Pulmonary arteries are normal in size, and demonstrate no intraluminal filling defects to suggest central pulmonary embolism.? ? Lungs and pleura:? Bilateral pulmonary alveolar infiltrates with mixed ground-glass densities, significantly increased from the prior exam.? A rounded atelectasis noted in the left lung measuring 3 cm left-sided small pleural effusion noted as well. ? Mediastinum:? Heart size is normal, without pericardial effusion.? No mediastinal or hilar adenopathy.? Thoracic aorta is normal in caliber and enhancement.? Esophagus is normal in caliber.? Small hiatal hernia. ? Bones and chest wall:? No suspicious bony lesions.? Ribs and thoracic spine appear intact throughout.? Thyroid gland unremarkable.? No axillary or supraclavicular adenopathy.? ? Abdomen:? Visualized upper abdominal solid organs appear normal in the early arterial phase of enhancement.? ? IMPRESSION:? ? Bilateral alveolar and ground-glass opacities consistent with viral pneumonia or pneumonitis, increased from the prior ? No evidence of pulmonary embolism aortic dissection or aneurysm. ? ? ? Approved by: Tyrone Bonilla M.D. on 04/10/2022 at 14:08? Chest x-ray: Radiologist's Impression: [address] [address] XRay Report Signed Patient: Vidhi Chow MR#: [id number] : 1950 Acct:[id number] Age/Sex: 71 / F Date of Service: 04/10/22 Loc: ED Accession Number: [id number] ?? Procedure: XR chest 1V Ordering Provider: Tyler Alegre MD PROCEDURE:? XR CHEST 1V ? INDICATIONS:? shortness of breath ? TECHNIQUE:? One view of the chest was acquired.? ? COMPARISON:? [facility], CR, XR CHEST 1V, 11/30/2021, 14:25. ? FINDINGS:? ? Surgical changes and devices:? Right-sided Port-A-Cath in place. ? Lungs and pleura:? Patchy bilateral pulmonary infiltrates present with perihilar prominence.? Pleural spaces are clear. ? Mediastinum:? Mediastinal contours appear normal.? Heart size is normal.? Atherosclerotic vascular calcification noted in the aortic arch. ? Bones and chest wall:? No suspicious bony lesions.? Overlying soft tissues appear unremarkable.? ? IMPRESSION:? ? Patchy bilateral pulmonary infiltrates, increased from the prior ? ? ? Approved by: Tyrone Bonilla M.D. on 04/10/2022 at 12:29? ECG Data Interpretation: Sinus tachycardia rate [address] elevation or depression. Otherwise normal EKG MDM Narrative Medical decision making narrative: Over for admission. Patient requiring high-flow oxygen. Recurring ICU for respiratory failure. Patient is protecting airway. No antibiotics at this time I have reviewed with primary care. Agrees with remdesivir and Decadron. Critical Care Time Critical Care Time Attestation: Critical Care Time 35 minutes: Critical care time is separate from other billable procedures. This critical care time includes consultation with family and other consulting doctors, review of records, and interpretation of data from labs, EKGs, imaging, etc. Discharge Plan Departure Patient Disposition: Admitted As Inpatient Clinical Impression: Acute respiratory failure with hypoxemia, COVID-19 Admit Date/Time: 04/10/22 15:32 Admit Provider: Jayme Hunter
--- NOTE | 2022-04-10 13:35 | PC.NURSE ---
1331: RT placed pt on high flow at 40L at 100%.
[2022-04-10 13:54] LABS: NT-proBNP (BNP-Adult 18+) 1430 pg/mL (<125)
[2022-04-10] MEDS: DEXAMETHASONE 10 MG/ML VIAL 6 MG IV (15:40)
[2022-04-10] MEDS: REMDESIVIR 200 MG in SODIUM CHLORIDE 0.9% 210 ML 250 MG IV (16:10)
--- NOTE | 2022-04-10 17:21 | P.TELICUCN_ITS ---
History of Present Illness Consult details If camera was activated, add TeleICU A-V Statement: Blanca seen via two way interative AV system. 71 year old woman with HTN, anemia, anxiety, recent diagnosis of stage IIIB lung Ca - underwent chemoradiation ( last dose in january) and on immunotherapy also last dose in January. She did have any tx in February due to her COVID diagnosis. She presentes today with SOB. Underwent CT imaging with is consisent with an AIP , and ARDS likely form COVID pna. I reviewed her labs and imaging, signifant for hyponatremia nad elevation in LFT, remains COVID +. 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) Social History household members: spouse Smoking Status: Former smoker alcohol intake: current Current Medications Current Medications Medications: Home Medications calcium citrate 200 mg (950 mg) tablet (Calcitrate) 600 mg PO BID ##0 06/11/17 [History Confirmed 01/20/22] omeprazole 20 mg capsule,delayed release See Rx Instructions .Route .COMPLEX 01/31/18 [History Confirmed 01/20/22] amlodipine 2.5 mg tablet 2.5 mg PO BID 08/24/21 [History Confirmed 01/20/22] lorazepam 0.5 mg tablet 0.5 mg PO DAILY 08/24/21 [History Confirmed 01/20/22] losartan 100 mg tablet 100 mg PO DAILY 08/24/21 [History Confirmed 01/20/22] sertraline 50 mg tablet 50 mg PO DAILY 08/24/21 [History Confirmed 01/20/22] aspirin 81 mg capsule 81 mg PO DAILY 09/02/21 [History Confirmed 01/20/22] cholecalciferol (vitamin D3) 25 mcg (1,000 unit) capsule (Vitamin D3) 25 mcg PO DAILY 09/02/21 [History Confirmed 01/20/22] codeine 10 mg-guaifenesin 300 mg tablet 1 tab PO PRN PRN Cough 09/02/21 [History Confirmed 01/20/22] diphenhydramine HCl 25 mg capsule 25 mg DAILY 09/02/21 [History Confirmed 01/20/22] methocarbamol 500 mg tablet 500 mg DAILY 09/02/21 [History Confirmed 01/20/22] multivitamin 1 tab PO DAILY 09/02/21 [History Confirmed 01/20/22] Tylenol 500 mg PO PRN PRN Severe Pain (Scale Score 7-10) 11/30/21 [History Confirmed 01/20/22] hydrocodone 5 mg-acetaminophen 325 mg tablet 1 tab PO Q8H PRN pain #10 tabs 11/30/21 [Rx Confirmed 01/20/22] Exam Vital Signs (past 8 hours): - 04/10/22 12:27 04/10/22 12:25 04/10/22 12:30 Temperature 98 F Pulse Rate 108 H 114 H 109 H Respiratory Rate 30 H 29 H 29 H Blood Pressure 96/50 L Pulse Oximetry 91 92 91 Oxygen Delivery Method Nasal Cannula Oxygen Flow Rate 03 0104/10/22 12:37 04/10/22 12:37 04/10/22 12:45 Temperature Pulse Rate 108 H Respiratory Rate 28 H Blood Pressure 96/50 L 98/52 L Pulse Oximetry 92 Oxygen Delivery Method Oxygen Flow Rate 04/10/22 12:45 04/10/22 13:00 04/10/22 13:00 Temperature Pulse Rate 107 H 109 H Respiratory Rate 30 H 36 H Blood Pressure 104/56 L Pulse Oximetry 95 92 Oxygen Delivery Method Nasal Cannula Oxygen Flow Rate 6 04/10/22 13:15 04/10/22 13:15 04/10/22 13:34 Temperature Pulse Rate 102 H 93 H Respiratory Rate 28 H 24 Blood Pressure 99/53 L 99/53 L Pulse Oximetry 87 L 95 Oxygen Delivery Method Non -Rebreather Oxygen Flow Rate 04/10/22 14:02 04/10/22 13:30 04/10/22 13:30 Temperature Pulse Rate 93 H 91 H Respiratory Rate 22 25 H Blood Pressure 99/53 L 107/55 L Pulse Oximetry 96 97 Oxygen Delivery Method Oxygen Flow Rate 04/10/22 14:00 04/10/22 14:01 04/10/22 14:01 Temperature Pulse Rate 101 H 100 H Respiratory Rate 28 H 31 H Blood Pressure 134/61 Pulse Oximetry 97 96 Oxygen Delivery Method Heated High Flow Oxygen Flow Rate 04/10/22 14:15 04/10/22 14:15 04/10/22 14:30 Temperature Pulse Rate 93 H Respiratory Rate 24 Blood Pressure 126/58 L 120/57 L Pulse Oximetry 95 Oxygen Delivery Method Heated High Flow Oxygen Flow Rate 50 04/10/22 14:30 04/10/22 15:00 04/10/22 15:01 Temperature Pulse Rate 98 H 92 H 92 H Respiratory Rate 26 H 30 H 29 H Blood Pressure Pulse Oximetry 92 94 94 Oxygen Delivery Method Oxygen Flow Rate 04/10/22 15:01 04/10/22 15:15 04/10/22 15:15 Temperature Pulse Rate 90 Respiratory Rate 26 H Blood Pressure 99/51 L 107/53 L Pulse Oximetry 95 Oxygen Delivery Method Oxygen Flow Rate 04/10/22 15:30 04/10/22 15:30 04/10/22 16:06 Temperature Pulse Rate 90 Respiratory Rate 26 H Blood Pressure 125/67 Pulse Oximetry 98 96 Oxygen Delivery Method Oxygen Flow Rate 04/10/22 16:02 04/10/22 16:06 04/10/22 16:06 Temperature Pulse Rate 83 98 H Respiratory Rate 37 H Blood Pressure 137/57 L Pulse Oximetry 95 85 L Oxygen Delivery Method Oxygen Flow Rate 04/10/22 16:10 04/10/22 16:10 Temperature 97.6 F Pulse Rate 94 H Respiratory Rate 35 H Blood Pressure 115/53 L Pulse Oximetry 76 L Oxygen Delivery Method Oxygen Flow Rate Oxygen Delivery Method Heated High Flow Oxygen Flow Rate 50 Narrative Exam Narrative: surrogate for exam is primary team Objective Labs Result Diagrams: 04/10/22 12:54 04/10/22 12:54 Labs: Laboratory Results - last 24 hr 04/10/22 04/10/22 04/10/22 11:27 12:54 12:54 WBC 9.9 RBC 3.47 L Hgb 11.0 L Hct 31.7 L MCV 91.5 MCH 31.7 MCHC 34.6 RDW 16.1 H Plt Count 219 Neut % (Auto) 95.2 H Lymph % (Auto) 2.7 L [place] % (Auto) 1.4 L Eos % (Auto) 0.4 L Baso % (Auto) 0.3 Neut # (Auto) 9400 H Lymph # (Auto) 300 L [place] # (Auto) 100 Eos # (Auto) 0 Baso # (Auto) 0 Sodium 126 L Potassium 3.8 Chloride 95 L Carbon Dioxide 26 BUN 16 Creatinine 0.80 Estimated GFR > 60 BUN/Creatinine Ratio 20.0 Glucose 102 Lactate Calcium 8.3 L Total Bilirubin 0.5 AST 56 H ALT 45 H Alkaline Phosphatase 88 NT-Pro-B Natriuret Pep Total Protein 5.7 L Albumin 3.1 L Globulin 2.6 Albumin/Globulin Ratio 1.2 SARS-CoV-2 (PCR) Positive H 04/10/22 04/10/22 12:54 12:54 WBC RBC Hgb Hct MCV MCH MCHC RDW Plt Count Neut % (Auto) Lymph % (Auto) [place] % (Auto) Eos % (Auto) Baso % (Auto) Neut # (Auto) Lymph # (Auto) [place] # (Auto) Eos # (Auto) Baso # (Auto) Sodium Potassium Chloride Carbon Dioxide BUN Creatinine Estimated GFR BUN/Creatinine Ratio Glucose Lactate 1.2 Calcium Total Bilirubin AST ALT Alkaline Phosphatase NT-Pro-B Natriuret Pep 1430 H Total Protein Albumin Globulin Albumin/Globulin Ratio SARS-CoV-2 (PCR) Assessment & Plan Assessment & Plan narrative: Acute hypoxemic resp failure due to covid 19 ARDS possible prob atypical pna stage IIIB lung Ca - on chemo and immunotherapy ( last dose in January) hyponatremia eleavted LFT HTN GERd Likely ARDS from COVID 19, her time line is a bit delayed, as I would suspect such resp failure a few weeks after infeciton, this may be dleayed due t her prednosone use. Other possible etioliges on my differential are atypical pna such as legionella or PJP given steroid use. Unclear which immunotherapy she is taking for her cancer, though I suspet it owuld include at least a pdl-1 inhibitor. I doubt it is a drug induced pneumonitis given last dose received, though basedo n case reports it does remain a distant possiblity ( the CT pattern in immunotherapy infduced pnuemonitis is very simialar to COVID - diffuse GGO) Plan continue HFNC ABG map goal >65 TTE would start clear liquid diet trend bmp trend cbc monitior UO woiuld obtain LDH, sputum pcp f/u urine legionella dexamehtaonse 6 mg daily baricinib for now lovenox for dvt ppx trend d-dimer - if eleavted switch to full dose will start azithromycin for now will f/u LDH and sputum pjp ( tracheal aspriate if possible would be ideal) and consider bactrim CCT 42 min Time Spent With Patient Critical Care time: I spent a total of [] minutes of critical care time on this patient's care today; this time is exclusive of procedural time.
--- NOTE | 2022-04-10 17:33 | P.HP_ITS ---
History of Present Illness History of Present Illness Date Patient Seen: 04/10/22 Time Patient Seen: 17:34 Date of Onset of Symptoms: 04/09/22 Chief complaint: Fall Narrative: Patient is a 71-year-old well known to Dr. Alejandre my partner broadalbin cross covering for who was diagnosed in in August with lung cancer who has been vaccinated. Patient has 3 a non-small cell right side lung and 1 a left-sided lung. Patient had radiation in September of this year. Had been feeling pretty well. In January she got her 1st immunotherapy treatment and felt really well. But developed COVID in early February. She was positive for 2 weeks and then turn ne gative. She was supposed to receive another immunotherapy but did not. Due to that she was placed on high-dose prednisone 80 mg a week and has been decreasing since that time now on 40 mg a day. 20 mg twice a day. She had been feeling well up until yesterday when she started to cough. She actually saw Dr. Alejandre at that time. But was really having no respiratory issues. She woke up this mo rning in acute respiratory distress. Some chills. No fever. No productive cough. No other changes. She has had no chest pain no abdominal discomfort no diarrhea no urinary changes. She has otherwise felt normal presented to the emergency room patient was always awake alert but requiring initially nasal cannula but quickly developed need for 40 L and 100%. High-flow cannula. Patient otherwise feels well. Has no other complaints. Patient has a history of COPD and has been trialed on different inhalers did not feel like they made a lot of difference. Past medical and surgical history see below Family history: Father age 50 colon cancer. Mother 82 stroke hypertension hyperlipidemia. Siblings hypertension hyperlipidemia TIA. 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) Family & Social History Social History: household members spouse Prior Living Arrangements House Safety & Behavioral: Feels Safe in Current Yes Environment Been Physically Hurt or No Threatened By a Person Tobacco & Substance use: Tobacco type cigarettes Smoking Status Former smoker alcohol intake current alcohol intake frequency holiday/special occasion Substance Use Type does not use Meds Home Medications and Allergies Home Medications Medication Instructions Recorded Confirmed Type calcium citrate 200 mg (950 mg) 600 mg PO BID ##0 06/11/17 01/20/22 History tablet (Calcitrate) omeprazole 20 mg capsule,delayed See Rx Instructions .Route .COMPLEX 01/31/18 01/20/22 History release amlodipine 2.5 mg tablet 2.5 mg PO BID 08/24/21 01/20/22 History lorazepam 0.5 mg tablet 0.5 mg PO DAILY 08/24/21 01/20/22 History losartan 100 mg tablet 100 mg PO DAILY 08/24/21 01/20/22 History sertraline 50 mg tablet 50 mg PO DAILY 08/24/21 01/20/22 History aspirin 81 mg capsule 81 mg PO DAILY 09/02/21 01/20/22 History cholecalciferol (vitamin D3) 25 25 mcg PO DAILY 09/02/21 01/20/22 History mcg (1,000 unit) capsule (Vitamin D3) codeine 10 mg-guaifenesin 300 mg 1 tab PO PRN PRN Cough 09/02/21 01/20/22 History tablet diphenhydramine HCl 25 mg capsule 25 mg DAILY 09/02/21 01/20/22 History methocarbamol 500 mg tablet 500 mg DAILY 09/02/21 01/20/22 History multivitamin 1 tab PO DAILY 09/02/21 01/20/22 History Tylenol 500 mg PO PRN PRN Severe Pain 11/30/21 01/20/22 History (Scale Score 7-10) hydrocodone 5 mg-acetaminophen 325 1 tab PO Q8H PRN pain #10 tabs 11/30/21 01/20/22 Rx mg tablet Allergies Allergy/AdvReac Type Severity Reaction Status Date / Time Sulfa (Sulfonamide Allergy Severe Rash Verified 01/20/22 10:45 Antibiotics) [SULFA (SULFONAMIDE ANTIBIOTICS)] Penicillins [PENICILLINS] Allergy Unknown Verified 01/20/22 10:45 Review of Systems Review of Systems Narrative: See above Exam Vital Signs (past 8 hours): - 04/10/22 12:27 04/10/22 12:25 04/10/22 12:30 Temperature 98 F Pulse Rate 108 H 114 H 109 H Respiratory Rate 30 H 29 H 29 H Blood Pressure 96/50 L Pulse Oximetry 91 92 91 Oxygen Delivery Method Nasal Cannula Oxygen Flow Rate 6 6 04/10/22 12:37 04/10/22 12:37 04/10/22 12:45 Temperature Pulse Rate 108 H Respiratory Rate 28 H Blood Pressure 96/50 L 98/52 L Pulse Oximetry 92 Oxygen Delivery Method Oxygen Flow Rate 6 04/10/22 12:45 04/10/22 13:00 04/10/22 13:00 Temperature Pulse Rate 107 H 109 H Respiratory Rate 30 H 36 H Blood Pressure 104/56 L Pulse Oximetry 95 92 Oxygen Delivery Method Nasal Cannula Oxygen Flow Rate 6 6 04/10/22 13:15 04/10/22 13:15 04/10/22 13:34 Temperature Pulse Rate 102 H 93 H Respiratory Rate 28 H 24 Blood Pressure 99/53 L 99/53 L Pulse Oximetry 87 L 95 Oxygen Delivery Method Non -Rebreather Oxygen Flow Rate 15 04/10/22 14:02 04/10/22 13:30 04/10/22 13:30 Temperature Pulse Rate 93 H 91 H Respiratory Rate 22 25 H Blood Pressure 99/53 L 107/55 L Pulse Oximetry 96 97 Oxygen Delivery Method Oxygen Flow Rate 04/10/22 14:00 04/10/22 14:01 04/10/22 14:01 Temperature Pulse Rate 101 H 100 H Respiratory Rate 28 H 31 H Blood Pressure 134/61 Pulse Oximetry 97 96 Oxygen Delivery Method Heated High Flow Oxygen Flow Rate 04/10/22 14:15 04/10/22 14:15 04/10/22 14:30 Temperature Pulse Rate 93 H Respiratory Rate 24 Blood Pressure 126/58 L 120/57 L Pulse Oximetry 95 Oxygen Delivery Method Heated High Flow Oxygen Flow Rate 50 04/10/22 14:30 04/10/22 15:00 04/10/22 15:01 Temperature Pulse Rate 98 H 92 H 92 H Respiratory Rate 26 H 30 H 29 H Blood Pressure Pulse Oximetry 92 94 94 Oxygen Delivery Method Oxygen Flow Rate 04/10/22 15:01 04/10/22 15:15 04/10/22 15:15 Temperature Pulse Rate 90 Respiratory Rate 26 H Blood Pressure 99/51 L 107/53 L Pulse Oximetry 95 Oxygen Delivery Method Oxygen Flow Rate 04/10/22 15:30 04/10/22 15:30 04/10/22 16:06 Temperature Pulse Rate 90 Respiratory Rate 26 H Blood Pressure 125/67 Pulse Oximetry 98 96 Oxygen Delivery Method Oxygen Flow Rate 04/10/22 16:02 04/10/22 16:06 04/10/22 16:06 Temperature Pulse Rate 83 98 H Respiratory Rate 37 H Blood Pressure 137/57 L Pulse Oximetry 95 85 L Oxygen Delivery Method Oxygen Flow Rate 04/10/22 16:10 04/10/22 16:10 04/10/22 16:45 Temperature 97.6 F Pulse Rate 94 H 90 Respiratory Rate 35 H 26 H Blood Pressure 115/53 L Pulse Oximetry 76 L 93 Oxygen Delivery Method Oxygen Flow Rate Oxygen Delivery Method Heated High Flow Oxygen Flow Rate 50 Narrative Exam Narrative: Alert smiling suite elderly female comfortably lying but clearly short of breath when she starts talking. Mucous membranes moist. I show conjunctiva no within normal limits neck supple without adenopathy. No JVD. Lungs with basilar crackles and bilateral air got off any in the upper lung albrecht. No rhonchi. She currently has no retractions while I am sitting here. Heart regular rate and rhythm without murmur abdomen is soft positive bowel sounds nontender extremities without cyanosis clubbing edema. Neurologic exam is normal. Nonfocal. Awake alert interactive Objective Labs Result Diagrams: 04/10/22 12:54 04/10/22 12:54 Labs: Laboratory Results - last 24 hr 04/10/22 04/10/22 04/10/22 11:27 12:54 12:54 WBC 9.9 RBC 3.47 L Hgb 11.0 L Hct 31.7 L MCV 91.5 MCH 31.7 MCHC 34.6 RDW 16.1 H Plt Count 219 Neut % (Auto) 95.2 H Lymph % (Auto) 2.7 L [place] % (Auto) 1.4 L Eos % (Auto) 0.4 L Baso % (Auto) 0.3 Neut # (Auto) 9400 H Lymph # (Auto) 300 L [place] # (Auto) 100 Eos # (Auto) 0 Baso # (Auto) 0 Sodium 126 L Potassium 3.8 Chloride 95 L Carbon Dioxide 26 BUN 16 Creatinine 0.80 Estimated GFR > 60 BUN/Creatinine Ratio 20.0 Glucose 102 Lactate Calcium 8.3 L Total Bilirubin 0.5 AST 56 H ALT 45 H Alkaline Phosphatase 88 NT-Pro-B Natriuret Pep Total Protein 5.7 L Albumin 3.1 L Globulin 2.6 Albumin/Globulin Ratio 1.2 SARS-CoV-2 (PCR) Positive H 04/10/22 04/10/22 12:54 12:54 WBC RBC Hgb Hct MCV MCH MCHC RDW Plt Count Neut % (Auto) Lymph % (Auto) [place] % (Auto) Eos % (Auto) Baso % (Auto) Neut # (Auto) Lymph # (Auto) [place] # (Auto) Eos # (Auto) Baso # (Auto) Sodium Potassium Chloride Carbon Dioxide BUN Creatinine Estimated GFR BUN/Creatinine Ratio Glucose Lactate 1.2 Calcium Total Bilirubin AST ALT Alkaline Phosphatase NT-Pro-B Natriuret Pep 1430 H Total Protein Albumin Globulin Albumin/Globulin Ratio SARS-CoV-2 (PCR) Assessment & Plan Assessment & Plan narrative: Acute respiratory failure. Secondary to COVID pneumonia. Interesting patient has basically had 1 month of COVID although she had a 2 week. During this time that she was negative with testing. She has been on high-dose steroids and has gotten a dose of immunotherapy with her lung cancer. Certainly does not have any evidence of bacterial pneumonia no white count no procalcitonin changes. Discussed with tele lining layer. Will cover her for Legionella. Otherwise will support with oxygen. COVID pneumonia. O2 support. Usual cocktail of dexamethasone remdesivir and baricitinib. Discussed with lining layer full-dose DVT or clotting prophylaxis on Lovenox and we elected for prophylactic doses due to some of the studies which have shown issues with bleeding. May change depending on how things go. Otherwise patient seems to be doing well. Lung cancer stage III B. at this point seems to be stable will follow. Fluid electrolytes and nutrition. Regular diet will follow and trend her intake. Follow from there. Hypertension. Resume usual medicines. COPD. Respiratory therapy consult at this point will hold on other treatments. But follow. She did not do that well as an outpatient on inhalers. Reflux will switch to IV pantoprazole for GI prophylaxis in this ill patient. DVT prophylaxis see above on Lovenox. Code status. Patient does not want to be resuscitated nor does she want intubation. We discussed this pretty extensively she has discussed this previously and does have a living well and states this. Comfortable with decision. Greater than 40 minutes spent with patient in prepping to see patient, discussion with lining layer and nurses, emergency room doctors, reviewing data and seeing patient orders and dictation. Time Spent With Patient Critical Care time: I spent a total of [] minutes of critical care time on this patient's care today; this time is exclusive of procedural time. Quality VTE Deep Vein Thrombosis/Pulmonary Embolism Present on Admission: Yes
[2022-04-10] MEDS: AZITHROMYCIN 500 MG in DEXTROSE 5% IN WATER 250 ML 250 MG IV (18:11)
--- NOTE | 2022-04-10 18:58 | PC.NURSE ---
Pt. arrived to the floor via stretcher. Pt. is a&o x4, very tachypneic and short of breath, desats quickly and on heated hi flow at 50%, Fio2 of 100%. Pt. denies pain, skin intact. Oriented to call light and bed control use. Pt. started on Remdesivir and Azintromycin.
[2022-04-10] MEDS: AMLODIPINE 5 MG TABLET 2.5 MG PO (20:36)
--- NOTE | 2022-04-10 20:37 | PM.ICURNDS ---
- :: This patient was seen via real time interactive two-way audiovisual telecommunication. Admitted patietn earlier, clinical condition remain unchanged at this time. Will continue high flow nc, and f/u LDh, urine legionella and cx. Remains on dexamerhtasone and barictinib. Diet advanced. She is now DNR
[2022-04-11] VITALS (49 sets, daily range): BP systolic 84–149; BP diastolic 47–73; PULSE 68–126; RESP 10–45; TEMP 36–36.9; O2SAT 78–100
--- NOTE | 2022-04-11 05:15 | PM.EICU.INT ---
Teleintensivist Intervention Date/Time Was camera activated?: Yes Issue(s) Addressed Issue(s): Resp. Distress/Ventilator management (rsation with PCP. NIPPV started.) Intervention(s) :: Received report from Dr. Cui at shift change on this 71 y.o. with ARDS probably due to COVID-19 superimposed on a stage 3B NSCLC with recent radiation. She has continuously. REED [employer]UMENT [employer]ER reported that patient changed her code status back to FULL after a conversation with her PCP. NIPPV started. Midazolam 0.5 mg IVP x 1 ordered. Prognosis is very poor. Plan discussed with: Nurse
[2022-04-11] MEDS: diazePAM 10 MG/2 ML SYRINGE IV (05:26)
--- NOTE | 2022-04-11 06:13 | RT ---
Patient placed on BiPAP at 0440. Patient taken off BiPAP at 0545 (Patient refused). Patient placed back on HFNC by RN.
--- NOTE | 2022-04-11 06:24 | PC.NURSE ---
Shift Note: Patient is alert and orientedx4, follows commands, responds appropriately, denies any pain/discomfort, with visible shortness of breath at rest and on exertion, on HHFNC 55L/100%FIO2, O2 sat maintained >88%. Received call from Dr. Prasad and ordered to changes the patient code status from DNR to Full code as per patient request. At 0200H, patient uses bedpan, and patient appears more distress, O2 sat dropped quickly at mid-70s and took a while before it came up to 80s, notified ICU MD Jackson and informed him that patient code status was changed to full code, also asked him if okay to place garcia cath and he agreed. Placed garcia cath to urine bag with adequate urine output. At 0545, patient complained worsening shortness of breath, O2 sat dropped to 70s, patient appears more anxious, called Dr. Jackson and ordered to place patient to BIPAP, O2 sat went up to 95-96%. At 0545, patient took off the BIPAP and placed back HHFNC, O2 sat maintained >90%. Will continue monitor.
[2022-04-11] MEDS: dexmedeTOMIDine in 0.9 % NaCL 400 MCG/100 ML PLAST..BAG IV (08:46)
[2022-04-11] MEDS: LIDOCAINE 1% (PF) 5 ML 1 ML SUBCUT (08:47)
[2022-04-11] MEDS: AMLODIPINE 5 MG TABLET 2.5 MG PO ×2 (08:47→22:00)
[2022-04-11] MEDS: LOSARTAN 50 MG TABLET 100 MG PO (08:49)
[2022-04-11] MEDS: SERTRALINE 50 MG TABLET PO (08:50)
[2022-04-11] MEDS: ASPIRIN EC 81 MG TABLET PO (08:50)
[2022-04-11] MEDS: DEXAMETHASONE 10 MG/ML VIAL 6 MG IV (08:51)
[2022-04-11] MEDS: ENOXAPARIN 40 MG/0.4 ML SYRINGE SUBCUT (08:52)
[2022-04-11] MEDS: BARICITINIB 2 MG TABLET 4 MG PO (08:53)
[2022-04-11] MEDS: PANTOPRAZOLE 40 MG VIAL IV (08:53)
--- NOTE | 2022-04-11 09:42 | P.TELICUPN_ITS ---
Subjective Subjective Interval history: No acute issues overnight. On HFNC 60/100%. Failed tolerate BiPAP or proning. Awake and speaking in full sentence. Added precedex for anxiety and agitation. Current Medications Current Medications Medications: Home Medications calcium citrate 200 mg (950 mg) tablet (Calcitrate) 600 mg PO BID ##0 06/11/17 [History Confirmed 04/10/22] omeprazole 20 mg capsule,delayed release 20 mg PO BID 01/31/18 [History Confirmed 04/10/22] amlodipine 2.5 mg tablet 2.5 mg PO BID 08/24/21 [History Confirmed 04/10/22] lorazepam 0.5 mg tablet 0.5 mg PO DAILY 08/24/21 [History Confirmed 04/10/22] losartan 100 mg tablet 100 mg PO DAILY 08/24/21 [History Confirmed 04/10/22] sertraline 50 mg tablet 50 mg PO DAILY 08/24/21 [History Confirmed 04/10/22] aspirin 81 mg capsule 81 mg PO DAILY 09/02/21 [History Confirmed 04/10/22] cholecalciferol (vitamin D3) 25 mcg (1,000 unit) capsule (Vitamin D3) 25 mcg PO DAILY 09/02/21 [History Confirmed 04/10/22] codeine 10 mg-guaifenesin 300 mg tablet 1 tab PO PRN PRN Cough 09/02/21 [History Confirmed 04/10/22] diphenhydramine HCl 25 mg capsule 25 mg DAILY 09/02/21 [History Confirmed 04/10/22] multivitamin 1 tab PO DAILY 09/02/21 [History Confirmed 04/10/22] Tylenol 500 mg PO PRN PRN Severe Pain (Scale Score 7-10) 11/30/21 [History Confirmed 04/10/22] Visit Medications (administered) Generic Name Dose Route Start Last Admin Trade Name Freq PRN Reason Stop Dose Admin Acetaminophen 650 mg 04/10/22 18:09 04/11/22 05:52 Acetaminophen 325 Mg Tablet PO Not Given Q6HR REGINA Amlodipine Besylate 2.5 mg 04/10/22 21:00 04/11/22 08:47 Amlodipine 5 Mg Tablet PO 2.5 mg BID REGINA Administration Aspirin 81 mg 04/11/22 09:00 04/11/22 08:50 Aspirin Ec 81 Mg Tablet PO 81 mg DAILY REGINA Administration Dexamethasone 6 mg 04/11/22 09:00 04/11/22 08:51 Dexamethasone 10 Mg/Ml Vial IV 6 mg DAILY REGINA Administration Enoxaparin Sodium 40 mg 04/11/22 09:00 04/11/22 08:52 Enoxaparin 40 Mg/0.4 Ml Syringe SUBCUT 40 mg DAILY REGINA Administration Azithromycin 500 mg/ Dextrose 250 mls @ 250 mls/hr 04/10/22 17:30 04/10/22 18:11 IV 250 mls/hr Q24H REGINA Administration dexmedeTOMIDine in 0.9 % NaCL 400 mcg in 100 mls @ 3.75 mls/hr 04/11/22 08:15 04/11/22 08:46 Precedex IV 0.2 mcg/kg/hr TITRATE REGINA 3.75 mls/hr Administration Protocol 0.2 MCG/KG/HR Losartan Potassium 100 mg 04/11/22 09:00 04/11/22 08:49 Losartan 50 Mg Tablet PO 100 mg DAILY REGINA Administration Pantoprazole Sodium 40 mg 04/11/22 09:00 04/11/22 08:53 Pantoprazole 40 Mg Vial IV 40 mg DAILY REGINA Administration Sertraline HCl 50 mg 04/11/22 09:00 04/11/22 08:50 Sertraline 50 Mg Tablet PO 50 mg DAILY REGINA Administration Objective Ventilator Parameters: Ventilator Settings FiO2 80 Labs Result Diagrams: 04/10/22 12:54 04/10/22 12:54 Labs: Laboratory Results - last 24 hr 04/10/22 04/10/22 04/10/22 06:30 11:27 12:54 WBC 9.9 RBC 3.47 L Hgb 11.0 L Hct 31.7 L MCV 91.5 MCH 31.7 MCHC 34.6 RDW 16.1 H Plt Count 219 Neut % (Auto) 95.2 H Lymph % (Auto) 2.7 L [place] % (Auto) 1.4 L Eos % (Auto) 0.4 L Baso % (Auto) 0.3 Neut # (Auto) 9400 H Lymph # (Auto) 300 L [place] # (Auto) 100 Eos # (Auto) 0 Baso # (Auto) 0 Sodium Potassium Chloride Carbon Dioxide BUN Creatinine Estimated GFR BUN/Creatinine Ratio Glucose Lactate Calcium Total Bilirubin AST ALT Alkaline Phosphatase NT-Pro-B Natriuret Pep Total Protein Albumin Globulin Albumin/Globulin Ratio Nasal Screen MRSA (PCR) Negative for mrsa SARS-CoV-2 (PCR) Positive H 04/10/22 04/10/22 04/10/22 12:54 12:54 12:54 WBC RBC Hgb Hct MCV MCH MCHC RDW Plt Count Neut % (Auto) Lymph % (Auto) [place] % (Auto) Eos % (Auto) Baso % (Auto) Neut # (Auto) Lymph # (Auto) [place] # (Auto) Eos # (Auto) Baso # (Auto) Sodium 126 L Potassium 3.8 Chloride 95 L Carbon Dioxide 26 BUN 16 Creatinine 0.80 Estimated GFR > 60 BUN/Creatinine Ratio 20.0 Glucose 102 Lactate 1.2 Calcium 8.3 L Total Bilirubin 0.5 AST 56 H ALT 45 H Alkaline Phosphatase 88 NT-Pro-B Natriuret Pep 1430 H Total Protein 5.7 L Albumin 3.1 L Globulin 2.6 Albumin/Globulin Ratio 1.2 Nasal Screen MRSA (PCR) SARS-CoV-2 (PCR) Exam Vital Signs (past 8 hours): - 04/11/22 05:00 04/11/22 01:53 04/11/22 04:40 Temperature 98 F 97.0 F L Pulse Rate 125 H Respiratory Rate 45 H Blood Pressure 149/70 H Pulse Oximetry 97 Oxygen Delivery Method Oxygen Flow Rate 55 Fraction of Inspired Oxygen 100 100 04/11/22 03:00 04/11/22 06:12 04/11/22 07:00 Temperature Pulse Rate Respiratory Rate 36 H Blood Pressure 130/59 L Pulse Oximetry 92 Oxygen Delivery Method Heated High Flow Oxygen Flow Rate Fraction of Inspired Oxygen 04/11/22 07:00 04/11/22 07:00 04/11/22 07:48 Temperature Pulse Rate 125 H 112 H Respiratory Rate 41 H 30 H Blood Pressure Pulse Oximetry 93 94 Oxygen Delivery Method Heated High Flow Oxygen Flow Rate Fraction of Inspired Oxygen 04/11/22 08:00 04/11/22 08:00 04/11/22 08:49 Temperature Pulse Rate 126 H 120 H Respiratory Rate 40 H Blood Pressure 134/64 134/64 Pulse Oximetry 78 L Oxygen Delivery Method Oxygen Flow Rate Fraction of Inspired Oxygen Fraction of Inspired Oxygen 100 Oxygen Delivery Method Heated High Flow Oxygen Flow Rate 55 Quality TeleICU VTE Deep Vein Thrombosis/Pulmonary Embolism Present on Admission: Yes Assessment & Plan Assessment & Plan narrative: NEURO: # Anxiety -- Secondary to COVID and delirium -- Added precedex to maintain rASS goal -1 to +1 -- Cont frequent reporeintation -- Avoid BZD -- EArly mobility when hypoxemia improves RESP: # Acute hypoxemia respiratory failure -- SEcondary to COVID PNA -- On HFNC 60/100% -- Start gentle diuresis to seek net negative fluid balance -- HOB elevation -- Aspiration precaution -- COVID rx as below -- Monitor closely for the need for endotracheal intubation -- Encourage self proning as tolerated CVS: # HTN -- DC losartan -- Start gentle diuresis to seek net neagtive fluid balance -- Goal SBP < 140 ID: # [id number] --On decadron, baricitinib, and remdesivir -- Encourage self prone as tolerated -- Avoid NSAIDs -- Start gentle diuresis to seek net negative fluid balance -- On strict contact, airborne/droplet, eye protection, and critical meticulous hand hygiene ENDO: -- Goal BS < 180 D/w RN and pateint. Time Spent With Patient Critical Care time: I spent a total of [] minutes of critical care time on this patient's care today; this time is exclusive of procedural time.
--- NOTE | 2022-04-11 09:56 | P.PN_ITS ---
Subjective Subjective Date Patient Seen: 04/11/22 Time Patient Seen: 09:56 Interval history: Patient overall stable. Last night was with decreased O2 status and BiPAP was started she was intolerant of that. This morning her sats are stable as long she does not move. Overall doing well. Feels like she is doing okay. No other changes. Exam Vital Signs (past 8 hours): - 04/11/22 05:00 04/11/22 04:40 04/11/22 03:00 Temperature 98 F Pulse Rate 125 H Respiratory Rate 45 H Blood Pressure 149/70 H Pulse Oximetry 97 Oxygen Delivery Method Heated High Flow Oxygen Flow Rate 55 Fraction of Inspired Oxygen 100 100 04/11/22 06:12 04/11/22 07:00 04/11/22 07:00 Temperature Pulse Rate 125 H Respiratory Rate 36 H 41 H Blood Pressure 130/59 L Pulse Oximetry 92 93 Oxygen Delivery Method Oxygen Flow Rate Fraction of Inspired Oxygen 04/11/22 07:00 04/11/22 07:48 04/11/22 08:00 Temperature Pulse Rate 112 H Respiratory Rate 30 H Blood Pressure 134/64 Pulse Oximetry 94 Oxygen Delivery Method Heated High Flow Oxygen Flow Rate Fraction of Inspired Oxygen 04/11/22 08:00 04/11/22 08:49 Temperature Pulse Rate 126 H 120 H Respiratory Rate 40 H Blood Pressure 134/64 Pulse Oximetry 78 L Oxygen Delivery Method Oxygen Flow Rate Fraction of Inspired Oxygen Fraction of Inspired Oxygen 100 Oxygen Delivery Method Heated High Flow Oxygen Flow Rate 55 Narrative Exam Narrative: Alert elderly female in mild respiratory distress lying in bed. Mucous membranes moist neck supple without adenopathy. Lungs diffuse crackles. Slightly increased and improved air exchange in the upper airways. Heart regular rate and rhythm with tachycardia. Extremities without edema neurologic exam nonfocal anxious female. Objective Labs Result Diagrams: 04/10/22 12:54 04/10/22 12:54 Labs: Laboratory Results - last 24 hr 04/10/22 04/10/22 04/10/22 06:30 11:27 12:54 WBC 9.9 RBC 3.47 L Hgb 11.0 L Hct 31.7 L MCV 91.5 MCH 31.7 MCHC 34.6 RDW 16.1 H Plt Count 219 Neut % (Auto) 95.2 H Lymph % (Auto) 2.7 L [place] % (Auto) 1.4 L Eos % (Auto) 0.4 L Baso % (Auto) 0.3 Neut # (Auto) 9400 H Lymph # (Auto) 300 L [place] # (Auto) 100 Eos # (Auto) 0 Baso # (Auto) 0 Sodium Potassium Chloride Carbon Dioxide BUN Creatinine Estimated GFR BUN/Creatinine Ratio Glucose Lactate Calcium Total Bilirubin AST ALT Alkaline Phosphatase NT-Pro-B Natriuret Pep Total Protein Albumin Globulin Albumin/Globulin Ratio Nasal Screen MRSA (PCR) Negative for mrsa SARS-CoV-2 (PCR) Positive H 04/10/22 04/10/22 04/10/22 12:54 12:54 12:54 WBC RBC Hgb Hct MCV MCH MCHC RDW Plt Count Neut % (Auto) Lymph % (Auto) [place] % (Auto) Eos % (Auto) Baso % (Auto) Neut # (Auto) Lymph # (Auto) [place] # (Auto) Eos # (Auto) Baso # (Auto) Sodium 126 L Potassium 3.8 Chloride 95 L Carbon Dioxide 26 BUN 16 Creatinine 0.80 Estimated GFR > 60 BUN/Creatinine Ratio 20.0 Glucose 102 Lactate 1.2 Calcium 8.3 L Total Bilirubin 0.5 AST 56 H ALT 45 H Alkaline Phosphatase 88 NT-Pro-B Natriuret Pep 1430 H Total Protein 5.7 L Albumin 3.1 L Globulin 2.6 Albumin/Globulin Ratio 1.2 Nasal Screen MRSA (PCR) SARS-CoV-2 (PCR) FORMERLY [facility], [facility] Medical History Anemia Anxiety Easy bruisability Eczema GERD (gastroesophageal reflux disease) Headache, migraine HTN (hypertension) Hx of scarlet fever Surgical History History of ankle surgery (~01/1992) History of lung biopsy (08/24/21) History of surgical procedure History of surgical procedure (11/2013) 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 Probably stable at this point. Slightly worsened through the night. Still desats significantly with any movement. Continue high-flow oxygen. BiPAP was unsuccessful the hopefully maybe with sedation get better risk responsive needed. Okay with intubation if that is required. COVID pneumonia. On usual medication and erythromycin. Certainly does not seem to be with any bacterial component but is being covered for Legionella. Will have to watch closely. And follow. Hyponatremia. Patient with mild hyponatremia yesterday. Will recheck today. Adjust as needed. Anxiety. Quite significant. Started on Precedex hopefully this will help her resolve some her anxiety. Hypertension stable continue medicine. Fluid electrolytes and nutrition. Tolerating p.o. well. Being given diuretics to create a net negative fluid status. Seems to be doing well. COPD. Stable. Reflux. On IV pantoprazole. DVT prophylaxis. Discussed with assisted living housekeeper. Will continue prophylaxis dose. Code status. Discussed with son and patient. Would like full code at this time. With intubation. If needed. 37 minutes spent prepping to see patient seeing patient discussion with Nursing dictation and order Time Spent With Patient Critical Care time: I spent a total of [] minutes of critical care time on this patient's care today; this time is exclusive of procedural time. Quality VTE Deep Vein Thrombosis/Pulmonary Embolism Present on Admission: Yes
--- NOTE | 2022-04-11 10:44 | CM.DANOTE ---
BRADY Assessment: Payor: Medicare PCP: MD Hill Pt is a 71 y.o. F who was brought into the ER for complaints of dizziness and dyspnea. Pt tested positive for COVID on March 15 and resolved from symptoms. Pt is COVID vaccinated. Pt has a PMH of lung cancer and received radiation and chemotherapy in December/January of this year. Pt was put on 40 L on High flow O2. Pt was on non-rebreather but getting worse. Pt was admitted to the ICU as inpatient. Pt currently on high flow. Pt is ok with intubation if it is needed. Pt on medication for COVID pneumonia. COPD is currently stable. Pt is a full code. DCP spoke with pt spouse this morning to inquire about pt baseline activity level. Jim, spouse, states that the pt and him live in a 1 story house in [place] and their son lives about 1 mile away from them. Jim states that pt is independent at baseline with no DME use and pt still drives. Jim states that they have not used HH before but if needed would be open to it. DCP explained the role of HH. Jim states that pt has lung cancer and is currently on immunotherapy with Dr. Briscoe. Jim states that pt did receive radiation therapy but pt had a reaction to the treatment and that was stopped. DCP answered questions as appropriate from Jim. [facility] provided Jim with [facility] contact information. White board was not updated due to pt COVID + status and unable to enter room. [facility] instructed Jim to call with any other questions that might be needed. P: Once patient is deemed medically stable for discharge, pt will discharge home in spouse POV. R/O HH services. Raegan Dinero RN/ROWAN Discharge Planning/Care Management CM Discharge Assessment Start: 04/11/22 10:43 Freq: Status: Active Protocol: Document 04/11/22 10:43 JAIMIE (Rec: 04/11/22 10:44 JAIMIE [id number]) Discharge Planning Assessment Assigned Post Graduate Intern Raegan Dinero RN/ROWAN Advance Directives? Yes Advance Directives on File Yes History Provided By Significant Other Prior Living Arrangements House Household Members spouse Type of transporation used prior to Drives own vehicle admit Independent with ADL's Yes Is patient alert and oriented? Yes Barriers to Discharge No Discharge Plan Home Referrals Initiated None needed Additional Comment At this time Whiteboard Updated in Patient Room with No name and ext. # of Post Graduate Intern Comment Unable to enter room. Contact information provided to pt spouse, Jim. Review Status In Process Please Provide Date Initial DC 04/11/22 Assessment Was Performed Next Review Type Continued Stay Review
[2022-04-11] MEDS: ACETAMINOPHEN 325 MG TABLET 650 MG PO ×2 (10:49→18:00)
[2022-04-11] MEDS: FUROSEMIDE 20 MG/2 ML VIAL IV ×2 (10:50→20:39)
[2022-04-11 11:07] LABS: Add Manual Diff / Slide Review NO; Basophils Absolute Auto 0 /uL (0-100); Basophils Percent Auto 0.1 % (0-2); Eosinophils Absolute Auto 0 /uL (0-450); Eosinophils Percent Auto 0.2 % (2-4); Hematocrit 30.6 % (36-46); Hemoglobin 10.6 g/dL (12.0-16.0); Lymphocytes Absolute Auto 200 /uL (1100-4500); Lymphocytes Percent Auto 1.7 % (25-40); Mean Corpuscular HGB Conc 34.5 % (30-36); Mean Corpuscular Hemoglobin 31.5 PG (26-34); Mean Corpuscular Volume 91.4 fL (80-100); Monocytes Absolute Auto 100 /uL (0-900); Monocytes Percent Auto 1.4 % (3-14); Neutrophils Absolute Auto 9400 /uL (1500-7000); Neutrophils Percent Auto 96.6 % (50-75); Platelet Count 201 X10^3/uL (150-400); Red Blood Cell Count 3.35 X10^6/uL (4.0-5.2); Red Cell Distribution Width 15.6 % (11.6-14.8); White Blood Cell Count 9.8 X10^3/uL (4.5-11.0)
[2022-04-11 11:27] LABS: Alanine Aminotransferase 32 IU/L (<35); Albumin 2.8 g/dL (3.5-5.0); Albumin Globulin Ratio 1.1 (1.0-2.8); Alkaline Phosphatase 70 U/L (38-126); Aspartate Aminotransferase 51 IU/L (14-36); BUN Creatinine Ratio 25.4 (6-22); Bilirubin Total 0.6 mg/dL (0.2-1.3); Blood Urea Nitrogen 15 mg/dL (7-17); Calcium 7.6 mg/dL (8.4-10.2); Carbon Dioxide 22 mmol/L (22-32); Chloride 96 mmol/L (98-107); Estimated Glomerular Filt Rate > 60 mL/min (>60); Globulin 2.5 g/dL (1.7-4.1); Glucose 132 mg/dL (80-110); HEMOLYSIS < 15 (0-50); Potassium 4.3 mmol/L (3.4-5.1); Sodium 124 mmol/L (137-145); Total Protein 5.3 g/dL (6.3-8.2)
--- NOTE | 2022-04-11 12:27 | DI.RAD.S_ITS ---
PROCEDURE: XR CHEST FOR PICC 1V INDICATIONS: Pt with covid pneumonia needs central line if intubated COMPARISON: [facility], CR, XR CHEST 1V, 04/10/2022, 12:44. FINDINGS: Right-sided Port-A-Cath tip is in the cavoatrial junction. Right-sided PICC line tip in the mid SVC. No pneumothorax. Bilateral central pulmonary infiltrates slightly improved compared to the prior exam. Atherosclerotic vascular calcification noted in the aortic arch. Generalized decrease in osseous mineralization noted. IMPRESSION: Right-sided PICC line tip in the mid SVC Right Port-A-Cath unchanged Improving bilateral central pulmonary infiltrates. No pneumothorax. Approved by: Tyrone Bonilla M.D. on 04/11/2022 at 14:57
[2022-04-11] MEDS: REMDESIVIR 100 MG in SODIUM CHLORIDE 0.9% 230 ML 250 MG IV (14:51)
[2022-04-11] MEDS: AZITHROMYCIN 500 MG in DEXTROSE 5% IN WATER 250 ML 250 MG IV (16:37)
--- NOTE | 2022-04-11 20:29 | PM.ICURNDS ---
- :: This patient was seen via real time interactive two-way audiovisual telecommunication. patient remains on high flow o2 55L and 99% fio2. precedex turned off temporarily due to boderline BP. Otherwise subjectively imrpoving. Now full code. Kimmy flores pending. will order LDH and d- dimer. remains on steroids baricinib, and remdesivir
[2022-04-12] VITALS (37 sets, daily range): BP systolic 95–179; BP diastolic 52–84; PULSE 70–114; RESP 20–42; TEMP 36.2–37; O2SAT 60–98
[2022-04-12] MEDS: ACETAMINOPHEN 325 MG TABLET 650 MG PO ×2 (00:57→06:06)
[2022-04-12] MEDS: HYDROCODONE/ACET 5/325 TABLET 1 TAB PO ×2 (03:42→22:06)
[2022-04-12 05:16] LABS: Add Manual Diff / Slide Review NO; Basophils Absolute Auto 0 /uL (0-100); Basophils Percent Auto 0.1 % (0-2); Eosinophils Absolute Auto 0 /uL (0-450); Eosinophils Percent Auto 0.4 % (2-4); Hematocrit 27.7 % (36-46); Hemoglobin 9.7 g/dL (12.0-16.0); Lymphocytes Absolute Auto 200 /uL (1100-4500); Lymphocytes Percent Auto 1.5 % (25-40); Mean Corpuscular Volume 91.5 fL (80-100); Monocytes Absolute Auto 200 /uL (0-900); Neutrophils Absolute Auto 9800 /uL (1500-7000); Platelet Count 149 X10^3/uL (150-400); Red Blood Cell Count 3.02 X10^6/uL (4.0-5.2); Red Cell Distribution Width 15.8 % (11.6-14.8); White Blood Cell Count 10.2 X10^3/uL (4.5-11.0)
[2022-04-12 07:17] LABS: Lactate Dehydrogenase 1613 U/L (313-618)
[2022-04-12 07:19] LABS: Alanine Aminotransferase 27 IU/L (<35); Albumin 2.7 g/dL (3.5-5.0); Alkaline Phosphatase 81 U/L (38-126); Aspartate Aminotransferase 46 IU/L (14-36); Bilirubin Total 0.4 mg/dL (0.2-1.3); Blood Urea Nitrogen 18 mg/dL (7-17); Calcium 7.5 mg/dL (8.4-10.2); Carbon Dioxide 28 mmol/L (22-32); Chloride 95 mmol/L (98-107); Estimated Glomerular Filt Rate > 60 mL/min (>60); Globulin 2.6 g/dL (1.7-4.1); Glucose 95 mg/dL (80-110); HEMOLYSIS < 15 (0-50); Potassium 3.5 mmol/L (3.4-5.1); Sodium 126 mmol/L (137-145); Total Protein 5.3 g/dL (6.3-8.2)
[2022-04-12 07:52] LABS: D Dimer > 5250 ng/mL (<230)
[2022-04-12] MEDS: AMLODIPINE 5 MG TABLET 2.5 MG PO ×2 (08:05→21:11)
[2022-04-12] MEDS: BARICITINIB 2 MG TABLET 4 MG PO (08:07)
[2022-04-12] MEDS: ASPIRIN EC 81 MG TABLET PO (08:07)
[2022-04-12] MEDS: DEXAMETHASONE 10 MG/ML VIAL 6 MG IV ×2 (08:07→21:11)
[2022-04-12] MEDS: ENOXAPARIN 40 MG/0.4 ML SYRINGE SUBCUT ×2 (08:08→21:12)
[2022-04-12] MEDS: FUROSEMIDE 20 MG/2 ML VIAL IV ×2 (08:09→21:12)
[2022-04-12] MEDS: SERTRALINE 50 MG TABLET PO (08:10)
[2022-04-12] MEDS: PANTOPRAZOLE 40 MG VIAL IV (08:10)
--- NOTE | 2022-04-12 08:38 | RT ---
Patient is feeling an increased work of breathing this morning compared to yesterday. Discussed bipap with patient if high flow isn't working anymore and patient was ok with giving it another shot. Breath sounds and some fine crackles in bases but decent air movement throughout. Told RN to give us a call if patient starts to decompensate and we can come back up and try the bipap.
--- NOTE | 2022-04-12 09:46 | PM.PN.EICU ---
Subjective Subjective If camera was activated, add TeleICU A-V statement: Camera was activated and rounds were performed via 2 way audio/video interface. Patient was using the bedside commode thus wasnt observed directly during rounds Date Patient Seen: 04/12/22 Patient Location: ICU Provider location (State): [place] Interval history: Pt remains quite tenuous from a respiratory status. She is on HFNC 50L 100%. She desaturates into 70s easily and takes some time to recover. She is intolerant of proning. Current Medications Current Medications Medications: Home Medications calcium citrate 200 mg (950 mg) tablet (Calcitrate) 600 mg PO BID ##0 06/11/17 [History Confirmed 04/10/22] omeprazole 20 mg capsule,delayed release 20 mg PO BID 01/31/18 [History Confirmed 04/10/22] amlodipine 2.5 mg tablet 2.5 mg PO BID 08/24/21 [History Confirmed 04/10/22] lorazepam 0.5 mg tablet 0.5 mg PO DAILY 08/24/21 [History Confirmed 04/10/22] losartan 100 mg tablet 100 mg PO DAILY 08/24/21 [History Confirmed 04/10/22] sertraline 50 mg tablet 50 mg PO DAILY 08/24/21 [History Confirmed 04/10/22] aspirin 81 mg capsule 81 mg PO DAILY 09/02/21 [History Confirmed 04/10/22] cholecalciferol (vitamin D3) 25 mcg (1,000 unit) capsule (Vitamin D3) 25 mcg PO DAILY 09/02/21 [History Confirmed 04/10/22] codeine 10 mg-guaifenesin 300 mg tablet 1 tab PO PRN PRN Cough 09/02/21 [History Confirmed 04/10/22] diphenhydramine HCl 25 mg capsule 25 mg DAILY 09/02/21 [History Confirmed 04/10/22] multivitamin 1 tab PO DAILY 09/02/21 [History Confirmed 04/10/22] Tylenol 500 mg PO PRN PRN Severe Pain (Scale Score 7-10) 11/30/21 [History Confirmed 04/10/22] Visit Medications (administered) Generic Name Dose Route Start Last Admin Trade Name Freq PRN Reason Stop Dose Admin Acetaminophen 650 mg 04/10/22 18:09 04/12/22 06:06 Acetaminophen 325 Mg Tablet PO 650 mg Q6HR REGINA Administration Hydrocodone Bitart/Acetaminophen 1 tab 04/10/22 18:09 04/12/22 03:42 Hydrocodone/Acet 5/325 Tablet PO 1 tab Q8H PRN Administration pain Amlodipine Besylate 2.5 mg 04/10/22 21:00 04/12/22 08:05 Amlodipine 5 Mg Tablet PO 2.5 mg BID REGINA Administration Aspirin 81 mg 04/11/22 09:00 04/12/22 08:07 Aspirin Ec 81 Mg Tablet PO 81 mg DAILY REGINA Administration Furosemide 20 mg 04/11/22 10:00 04/12/22 08:09 Furosemide 20 Mg/2 Ml Vial IV 20 mg BID REGINA Administration Heparin Sodium (Porcine) 50 unit 04/11/22 21:00 04/12/22 08:10 Heparin Flush (Cl/Picc/Mid-Line) 50 Unit/5 Ml Syringe IV 50 unit BID REGINA Administration Azithromycin 500 mg/ Dextrose 250 mls @ 250 mls/hr 04/10/22 17:30 04/11/22 18:32 IV Infused Q24H REGINA Infusion dexmedeTOMIDine in 0.9 % NaCL 400 mcg in 100 mls @ 3.75 mls/hr 04/11/22 08:15 04/12/22 08:30 Precedex IV 0.1 mcg/kg/hr TITRATE REGINA 1.875 mls/hr Titration Protocol 0.2 MCG/KG/HR Remdesivir 100 mg/ Sodium 250 mls @ 250 mls/hr 04/11/22 15:00 04/11/22 16:38 Chloride IV 04/14/22 15:59 Infused 1500 REGINA Infusion Pantoprazole Sodium 40 mg 04/12/22 09:00 04/12/22 08:10 Pantoprazole 40 Mg Vial IV 40 mg DAILY REGINA Administration Sertraline HCl 50 mg 04/11/22 09:00 04/12/22 08:10 Sertraline 50 Mg Tablet PO 50 mg DAILY REGINA Administration Objective Ventilator Parameters: Ventilator Settings FiO2 80 Labs Result Diagrams: 04/12/22 04:45 04/12/22 06:35 Labs: Laboratory Results - last 24 hr 04/11/22 04/11/22 04/12/22 11:00 11:00 04:45 WBC 9.8 10.2 RBC 3.35 L 3.02 L Hgb 10.6 L 9.7 L Hct 30.6 L 27.7 L MCV 91.4 91.5 MCH 31.5 32.0 MCHC 34.5 35.0 RDW 15.6 H 15.8 H Plt Count 201 149 L Neut % (Auto) 96.6 H 96.0 H Lymph % (Auto) 1.7 L 1.5 L [place] % (Auto) 1.4 L 2.0 L Eos % (Auto) 0.2 L 0.4 L Baso % (Auto) 0.1 0.1 Neut # (Auto) 9400 H 9800 H Lymph # (Auto) 200 L 200 L [place] # (Auto) 100 200 Eos # (Auto) 0 0 Baso # (Auto) 0 0 D-Dimer Sodium 124 L Potassium 4.3 Chloride 96 L Carbon Dioxide 22 BUN 15 Creatinine 0.59 Estimated GFR > 60 BUN/Creatinine Ratio 25.4 H Glucose 132 H Calcium 7.6 L Total Bilirubin 0.6 AST 51 H ALT 32 Alkaline Phosphatase 70 Lactate Dehydrogenase Total Protein 5.3 L Albumin 2.8 L Globulin 2.5 Albumin/Globulin Ratio 1.1 04/12/22 04/12/22 04/12/22 06:35 06:35 06:35 WBC RBC Hgb Hct MCV MCH MCHC RDW Plt Count Neut % (Auto) Lymph % (Auto) [place] % (Auto) Eos % (Auto) Baso % (Auto) Neut # (Auto) Lymph # (Auto) [place] # (Auto) Eos # (Auto) Baso # (Auto) D-Dimer > 5250 H Sodium 126 L Potassium 3.5 Chloride 95 L Carbon Dioxide 28 BUN 18 H Creatinine 0.58 Estimated GFR > 60 BUN/Creatinine Ratio 31.0 H Glucose 95 Calcium 7.5 L Total Bilirubin 0.4 AST 46 H ALT 27 Alkaline Phosphatase 81 Lactate Dehydrogenase 1613 H Total Protein 5.3 L Albumin 2.7 L Globulin 2.6 Albumin/Globulin Ratio 1.0 Exam Vital Signs (past 8 hours): - 04/12/22 02:00 04/12/22 02:00 04/12/22 02:01 Temperature 98.6 F Pulse Rate 100 H 76 Respiratory Rate 27 H 20 Blood Pressure 111/53 L 111/53 L Pulse Oximetry 97 98 Oxygen Flow Rate 55 Fraction of Inspired Oxygen 100 04/12/22 02:01 04/12/22 03:00 04/12/22 03:00 Temperature Pulse Rate 76 103 H Respiratory Rate 20 28 H Blood Pressure 151/65 H Pulse Oximetry 98 94 Oxygen Flow Rate Fraction of Inspired Oxygen 04/12/22 04:00 04/12/22 04:00 04/12/22 05:08 Temperature Pulse Rate 93 H Respiratory Rate 30 H 26 H Blood Pressure 121/57 L Pulse Oximetry 86 L 94 Oxygen Flow Rate Fraction of Inspired Oxygen 04/12/22 06:00 04/12/22 08:36 Temperature 97.2 F L Pulse Rate 96 H 112 H Respiratory Rate 25 H 36 H Blood Pressure 114/55 L 112/74 Pulse Oximetry 96 92 Oxygen Flow Rate 55 Fraction of Inspired Oxygen 95 Fraction of Inspired Oxygen 95 Oxygen Delivery Method Heated High Flow Oxygen Flow Rate 55 Quality TeleICU VTE Deep Vein Thrombosis/Pulmonary Embolism Present on Admission: No Stress Ulcer Stress ulcer prophylaxis: no and not appropriate Assessment & Plan Assessment and plan (1) ARDS (adult respiratory distress syndrome): Status: Acute (2) COVID-19: Status: Acute (3) Lung cancer: Qualifiers: Laterality: left Lung location: lower lobe of lung Qualified Code(s): C34.32 - Malignant neoplasm of lower lobe, left bronchus or lung Status: Acute Assessment & Plan narrative: Pts resp failure/ARDS is due to COVID. Cont current rx. Trial of BiPAP seems reasonable. Cont precedex for comfort. Cont lasix BID to keep negative fluid balance (~500-1000ml/day). Will increase her decadron to 6 BID and inc her lovenox to 40 BID. She is at high risk for progression to intubation. ARDS from COVID infection in the setting of advanced age and underlying advanced lung [place] portends a very poor outcome if patient gets intubated. Would clarify goals of care because if pt gets intubated I highly suspect that she will not come off of the ventilator. Time Spent With Patient Critical Care time: I spent a total of [35] minutes of critical care time on this patient's care today; this time is exclusive of procedural time.
[2022-04-12] MEDS: LORazepam 0.5 MG TABLET PO (10:40)
[2022-04-12] MEDS: AZITHROMYCIN 500 MG in DEXTROSE 5% IN WATER 250 ML 250 MG IV (17:25)
[2022-04-12] MEDS: REMDESIVIR 100 MG in SODIUM CHLORIDE 0.9% 230 ML 250 MG IV (18:13)
--- NOTE | 2022-04-12 18:37 | PM.PN.1 ---
Subjective Subjective Date Patient Seen: 04/12/22 Time Patient Seen: 08:15 Interval history: Reviewed chart and ongoing workup. Patient is well known to me. Patient had uneventful night and Precedex was weaned off overnight due to borderline blood pressure. Patient has had rise in her blood pressure now with plan to restart the Precedex to help with this and she seems to have a decreased work of breathing when she is on it. Appreciate tele gas line installer supervisor input. Patient feels similar to how she fell yesterday. She feels she is having a little more difficulty breathing currently. She also had difficulty yesterday morning. She denies any pains in her chest. Denies any abdominal pain or swelling. She has been able to tolerate p.o. intake. Twelve point review of systems is negative other than subjective Exam Vital Signs (past 8 hours): - 04/12/22 11:18 04/12/22 11:00 04/12/22 12:00 Pulse Rate 110 H 109 H 114 H Respiratory Rate 30 H 30 H 32 H Blood Pressure 131/66 140/67 Pulse Oximetry 93 94 96 Oxygen Delivery Method Oxygen Flow Rate 55 55 Fraction of Inspired Oxygen 100 100 04/12/22 11:00 04/12/22 11:00 04/12/22 12:00 Pulse Rate 108 H Respiratory Rate 30 H Blood Pressure 131/66 140/67 Pulse Oximetry 94 Oxygen Delivery Method Oxygen Flow Rate Fraction of Inspired Oxygen 04/12/22 12:00 04/12/22 11:00 04/12/22 13:18 Pulse Rate 113 H 113 H Respiratory Rate 32 H 28 H Blood Pressure Pulse Oximetry 96 95 Oxygen Delivery Method Heated High Flow Oxygen Flow Rate Fraction of Inspired Oxygen 04/12/22 13:00 04/12/22 14:00 04/12/22 15:31 Pulse Rate 108 H Respiratory Rate 30 H Blood Pressure 147/67 H 141/65 H Pulse Oximetry 92 Oxygen Delivery Method Oxygen Flow Rate Fraction of Inspired Oxygen 04/12/22 17:18 04/12/22 15:00 04/12/22 15:00 Pulse Rate 113 H Respiratory Rate 28 H Blood Pressure 143/69 H Pulse Oximetry 97 Oxygen Delivery Method Heated High Flow Oxygen Flow Rate Fraction of Inspired Oxygen 04/12/22 15:00 04/12/22 16:00 04/12/22 16:00 Pulse Rate 113 H 111 H Respiratory Rate 30 H 29 H Blood Pressure 165/76 H Pulse Oximetry 85 L 94 Oxygen Delivery Method Oxygen Flow Rate Fraction of Inspired Oxygen 04/12/22 16:19 04/12/22 16:19 04/12/22 17:00 Pulse Rate 109 H Respiratory Rate 29 H Blood Pressure 150/70 H 149/74 H Pulse Oximetry 89 L Oxygen Delivery Method Oxygen Flow Rate Fraction of Inspired Oxygen 04/12/22 17:00 04/12/22 18:00 04/12/22 18:00 Pulse Rate 105 H 108 H Respiratory Rate 27 H 28 H Blood Pressure 127/64 Pulse Oximetry 96 98 Oxygen Delivery Method Oxygen Flow Rate Fraction of Inspired Oxygen Fraction of Inspired Oxygen 100 Oxygen Delivery Method Heated High Flow Oxygen Flow Rate 55 Narrative Exam Narrative: Patient is alert and oriented x3. She is resting in her hospital bed and is responsive with tachypnea. HEENT shows mucous membranes moist and pink. No obvious lesions. Neck: Supple without adenopathy or thyromegaly Chest: Diffuse fine crackles but no wheezing no rhonchi and really good breath sounds throughout in the bases as well. Cor: Regular rhythm with tachycardia with a heart rate in the 1 teens. Distant S1-S2 Abdomen: Positive bowel sounds, soft, nontender, nondistended Extremities: No edema pulses intact. No swelling no gastroc tenderness Neurologic exam is nonfocal Objective Labs Result Diagrams: 04/12/22 04:45 04/12/22 06:35 Labs: Laboratory Results - last 24 hr 04/12/22 04/12/22 04/12/22 04:45 06:35 06:35 WBC 10.2 RBC 3.02 L Hgb 9.7 L Hct 27.7 L MCV 91.5 MCH 32.0 MCHC 35.0 RDW 15.8 H Plt Count 149 L Neut % (Auto) 96.0 H Lymph % (Auto) 1.5 L [place] % (Auto) 2.0 L Eos % (Auto) 0.4 L Baso % (Auto) 0.1 Neut # (Auto) 9800 H Lymph # (Auto) 200 L [place] # (Auto) 200 Eos # (Auto) 0 Baso # (Auto) 0 D-Dimer > 5250 H Sodium Potassium Chloride Carbon Dioxide BUN Creatinine Estimated GFR BUN/Creatinine Ratio Glucose Calcium Total Bilirubin AST ALT Alkaline Phosphatase Lactate Dehydrogenase 1613 H Total Protein Albumin Globulin Albumin/Globulin Ratio 04/12/22 06:35 WBC RBC Hgb Hct MCV MCH MCHC RDW Plt Count Neut % (Auto) Lymph % (Auto) [place] % (Auto) Eos % (Auto) Baso % (Auto) Neut # (Auto) Lymph # (Auto) [place] # (Auto) Eos # (Auto) Baso # (Auto) D-Dimer Sodium 126 L Potassium 3.5 Chloride 95 L Carbon Dioxide 28 BUN 18 H Creatinine 0.58 Estimated GFR > 60 BUN/Creatinine Ratio 31.0 H Glucose 95 Calcium 7.5 L Total Bilirubin 0.4 AST 46 H ALT 27 Alkaline Phosphatase 81 Lactate Dehydrogenase Total Protein 5.3 L Albumin 2.7 L Globulin 2.6 Albumin/Globulin Ratio 1.0 PFSH Medical History Anemia Anxiety Easy bruisability Eczema GERD (gastroesophageal reflux disease) Headache, migraine HTN (hypertension) Hx of scarlet fever Surgical History History of ankle surgery (~01/1992) History of lung biopsy (08/24/21) History of surgical procedure History of surgical procedure (11/2013) 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 This is hospital day 3. Assessment 1. Acute respiratory failure secondary to COVID-19 infection. Patient remains stable but is on maximum oxygen therapy and condition is tenuous with high risk to progress to intubation. Again we discussed wishes and she does want to be in needed should she require this. We will obviously try to avoid this. She will continue on her same baricitinib, remdesivir, Lovenox which will be increased to 40 mg twice a day today and dexamethasone which will be increased to twice daily. Will continue with IV Lasix to maintain negative balance. Continue with respiratory support. Will restart Precedex. Will provide lorazepam for anxiety and air hunger. Patient is on this an outpatient and has not had it over the weekend. Will continue with azithromycin to treat atypical infection such as Legionella as. Assessment 2. Lung cancer was due for immunotherapy today. Clearly will not receive this. Assessment 3. Hypertension improved with addition of Precedex Plan: Continue outpatient amlodipine and losartan Assessment 4. Anxiety Plan: Continue on sertraline and will add lorazepam daily dosing as well as needed 65 minutes was spent with patient and I met with patient on 2 separate occasions including in the this morning as well as in the evening. Patient remained stable over the day and seems to be maintaining her saturations with movement in the bed more so this afternoon I called her son Rivas medeiros, [phone], and gave him an update. Time Spent With Patient Critical Care time: I spent a total of [] minutes of critical care time on this patient's care today; this time is exclusive of procedural time. Quality VTE Deep Vein Thrombosis/Pulmonary Embolism Present on Admission: No
--- NOTE | 2022-04-12 21:37 | PM.ICURNDS ---
- Date Patient Seen: 04/12/22 Time Patient Seen: 21:37 :: This patient was seen via real time interactive two-way audiovisual telecommunication. Note: 71 y.o. female with stage 3B NSCLC and COVID-19 induced ARDS. RN reports episodes of desaturation to 80s; currently 96% on 55L/min 100% HFNC and sleeping. Continue present plan. Prognosis is poor and she remains at high risk for intubation; remains FULL CODE as per multiple discussions between bedside team and patient.
[2022-04-13] VITALS (38 sets, daily range): BP systolic 92–151; BP diastolic 51–81; PULSE 65–108; RESP 10–57; TEMP 36.1–37.1; O2SAT 69–97
[2022-04-13] MEDS: ACETAMINOPHEN 325 MG TABLET 650 MG PO ×4 (00:30→17:43)
[2022-04-13] MEDS: dexmedeTOMIDine in 0.9 % NaCL 400 MCG/100 ML PLAST..BAG 5.625 MCG IV (01:00)
--- NOTE | 2022-04-13 08:26 | P.PN_ITS ---
Subjective Subjective Date Patient Seen: 04/13/22 Time Patient Seen: 08:26 Interval history: Patient's condition continues to be very tenuous. Patient is on maximum high flow oxygen and maintain saturations in the 90s and less any movement even in the bed or even talking she will desat into the 80s and even down into the 50s at times. She is not coughing a lot. She is tolerating p.o.. She states she is feeling better today she slept for the 1st time last night. She was given her once daily lorazepam yesterday and did not require any further. Twelve point review of systems is negative other than subjective Exam Vital Signs (past 8 hours): - 04/13/22 03:00 04/13/22 03:00 04/13/22 04:00 Pulse Rate 80 81 Respiratory Rate 16 34 H Blood Pressure 105/53 L 92/52 L Pulse Oximetry 95 95 Oxygen Delivery Method Heated High Flow Oxygen Flow Rate Fraction of Inspired Oxygen 04/13/22 05:00 04/13/22 06:00 04/13/22 01:00 Pulse Rate 102 H 99 H Respiratory Rate 24 25 H Blood Pressure 135/68 138/75 96/51 L Pulse Oximetry 94 91 Oxygen Delivery Method Oxygen Flow Rate Fraction of Inspired Oxygen 04/13/22 01:00 04/13/22 02:00 04/13/22 02:00 Pulse Rate 68 75 Respiratory Rate 30 H 32 H Blood Pressure 108/56 L Pulse Oximetry 96 96 Oxygen Delivery Method Oxygen Flow Rate Fraction of Inspired Oxygen 04/13/22 03:15 04/13/22 03:15 04/13/22 04:00 Pulse Rate 83 Respiratory Rate 24 36 H Blood Pressure 92/52 L Pulse Oximetry 95 95 96 Oxygen Delivery Method Heated High Flow Oxygen Flow Rate 55 Fraction of Inspired Oxygen 100 04/13/22 05:30 04/13/22 07:00 04/13/22 07:00 Pulse Rate 80 Respiratory Rate 26 H 21 Blood Pressure 129/67 Pulse Oximetry 94 96 Oxygen Delivery Method Oxygen Flow Rate Fraction of Inspired Oxygen 04/13/22 08:00 04/13/22 08:00 Pulse Rate 65 Respiratory Rate 17 Blood Pressure 105/57 L Pulse Oximetry 97 Oxygen Delivery Method Oxygen Flow Rate Fraction of Inspired Oxygen Fraction of Inspired Oxygen 100 Oxygen Delivery Method Heated High Flow Oxygen Flow Rate 55 Narrative Exam Narrative: Patient is resting peacefully in hospital bed. She awakens easily and is alert and oriented x3. HEENT: Mucous membranes moist and pink Neck is supple without adenopathy Chest: Decreased breath sounds bilateral bases but overall improved lung exam without any significant rhonchi or wheezes Cor: Regular rate and rhythm with distant S1-S2 Abdomen: Positive bowel sounds, soft Extremities: No edema, no tenderness, pulses intact Neurologic exam is nonfocal Objective Labs Result Diagrams: 04/12/22 04:45 04/12/22 06:35 [facility] Medical History Anemia Anxiety Easy bruisability Eczema GERD (gastroesophageal reflux disease) Headache, migraine HTN (hypertension) Hx of scarlet fever Surgical History History of ankle surgery (~01/1992) History of lung biopsy (08/24/21) History of surgical procedure History of surgical procedure (11/2013) 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 Acute respiratory failure secondary to COVID-19 pneumonia, overall stable but condition is very tenuous Plan: Will continue with remdesivir, dexamethasone twice daily and baricitinib. Will continue with diuretic to maintain 0 fluid balance. Appreciate industrial engineering technician assistance with the care of this very delightful patient. We will continue with Precedex at this point as this has helped patient from a hemodynamic standpoint. Will continue with azithromycin IV. This is to treat for atypical type pneumonia. Assessment 2. Stage III lung cancer status post radiation and chemotherapy and patient has been started on immunotherapy Plan: Hold on immunotherapy until recovers from COVID-19 illness Assessment 3. Hyponatremia Plan: Labs pending Assessment 4. GERD Plan: Continue with IV proton pump inhibitor Assessment 5. DVT prophylaxis Plan: Continue on Lovenox Assessment 6. Anxiety improved Plan: Continue Zoloft and once daily lorazepam and can give as needed as well Assessment 7. Hypertension Plan: Continue outpatient medications. Continue treating lung disease and continue on Precedex at this time. Assessment 8. Normocytic anemia secondary to chronic illnesses and current COVID-19 acute respiratory failure Plan: Will continue to monitor Code status is full code. Patient still desires intubation should she require this. Time Spent With Patient Critical Care time: I spent a total of [] minutes of critical care time on this patient's care today; this time is exclusive of procedural time. Quality VTE Deep Vein Thrombosis/Pulmonary Embolism Present on Admission: No
[2022-04-13] MEDS: SERTRALINE 50 MG TABLET PO (08:50)
[2022-04-13] MEDS: BARICITINIB 2 MG TABLET 4 MG PO (08:50)
[2022-04-13] MEDS: LORazepam 0.5 MG TABLET PO (08:50)
[2022-04-13] MEDS: ASPIRIN EC 81 MG TABLET PO (08:50)
[2022-04-13] MEDS: FUROSEMIDE 20 MG/2 ML VIAL IV ×2 (08:52→20:02)
[2022-04-13] MEDS: PANTOPRAZOLE 40 MG VIAL IV (08:55)
[2022-04-13] MEDS: DEXAMETHASONE 10 MG/ML VIAL 6 MG IV ×2 (08:56→19:58)
[2022-04-13] MEDS: ENOXAPARIN 40 MG/0.4 ML SYRINGE SUBCUT ×2 (08:58→19:58)
[2022-04-13] MEDS: AMLODIPINE 5 MG TABLET 2.5 MG PO ×2 (09:06→19:59)
--- NOTE | 2022-04-13 09:53 | PM.PN.EICU ---
Subjective Subjective If camera was activated, add TeleICU A-V statement: Patient was discussed wi bedside nurse using 2 way A-V equipment Provider location (State): [place] Interval history: Patient is status quo. Continues to desaturate with minimal movement. Remains on low dose precedex. Current Medications Current Medications Medications: Home Medications calcium citrate 200 mg (950 mg) tablet (Calcitrate) 600 mg PO BID ##0 06/11/17 [History Confirmed 04/10/22] omeprazole 20 mg capsule,delayed release 20 mg PO BID 01/31/18 [History Confirmed 04/10/22] amlodipine 2.5 mg tablet 2.5 mg PO BID 08/24/21 [History Confirmed 04/10/22] lorazepam 0.5 mg tablet 0.5 mg PO DAILY 08/24/21 [History Confirmed 04/10/22] losartan 100 mg tablet 100 mg PO DAILY 08/24/21 [History Confirmed 04/10/22] sertraline 50 mg tablet 50 mg PO DAILY 08/24/21 [History Confirmed 04/10/22] aspirin 81 mg capsule 81 mg PO DAILY 09/02/21 [History Confirmed 04/10/22] cholecalciferol (vitamin D3) 25 mcg (1,000 unit) capsule (Vitamin D3) 25 mcg PO DAILY 09/02/21 [History Confirmed 04/10/22] codeine 10 mg-guaifenesin 300 mg tablet 1 tab PO PRN PRN Cough 09/02/21 [History Confirmed 04/10/22] diphenhydramine HCl 25 mg capsule 25 mg DAILY 09/02/21 [History Confirmed 04/10/22] multivitamin 1 tab PO DAILY 09/02/21 [History Confirmed 04/10/22] Tylenol 500 mg PO PRN PRN Severe Pain (Scale Score 7-10) 11/30/21 [History Confirmed 04/10/22] Visit Medications (administered) Generic Name Dose Route Start Last Admin Trade Name Freq PRN Reason Stop Dose Admin Acetaminophen 650 mg 04/10/22 18:09 04/13/22 05:36 Acetaminophen 325 Mg Tablet PO 650 mg Q6HR REGINA Administration Hydrocodone Bitart/Acetaminophen 1 tab 04/10/22 18:09 04/12/22 22:06 Hydrocodone/Acet 5/325 Tablet PO 1 tab Q8H PRN Administration pain Amlodipine Besylate 2.5 mg 04/10/22 21:00 04/13/22 09:06 Amlodipine 5 Mg Tablet PO 2.5 mg BID REGINA Administration Aspirin 81 mg 04/11/22 09:00 04/13/22 08:50 Aspirin Ec 81 Mg Tablet PO 81 mg DAILY REGINA Administration Dexamethasone 6 mg 04/12/22 21:00 04/13/22 08:56 Dexamethasone 10 Mg/Ml Vial IV 6 mg BID REGINA Administration Enoxaparin Sodium 40 mg 04/12/22 21:00 04/13/22 08:58 Enoxaparin 40 Mg/0.4 Ml Syringe SUBCUT 40 mg BID REGINA Administration Furosemide 20 mg 04/11/22 10:00 04/13/22 08:52 Furosemide 20 Mg/2 Ml Vial IV 20 mg BID REGINA Administration Heparin Sodium (Porcine) 50 unit 04/11/22 21:00 04/13/22 08:55 Heparin Flush (Cl/Picc/Mid-Line) 50 Unit/5 Ml Syringe IV 50 unit BID REGINA Administration Azithromycin 500 mg/ Dextrose 250 mls @ 250 mls/hr 04/10/22 17:30 04/12/22 17:25 IV 250 mls/hr Q24H REGINA Administration dexmedeTOMIDine in 0.9 % NaCL 400 mcg in 100 mls @ 3.75 mls/hr 04/11/22 08:15 04/13/22 06:00 Precedex IV 0.2 mcg/kg/hr TITRATE REGINA 3.75 mls/hr Titration Protocol 0.2 MCG/KG/HR Remdesivir 100 mg/ Sodium 250 mls @ 250 mls/hr 04/11/22 15:00 04/12/22 19:13 Chloride IV 04/14/22 15:59 Infused 1500 REGINA Infusion Lorazepam 0.5 mg 04/12/22 10:45 04/13/22 08:50 Lorazepam 0.5 Mg Tablet PO 0.5 mg DAILY REGINA Administration Pantoprazole Sodium 40 mg 04/12/22 09:00 04/13/22 08:55 Pantoprazole 40 Mg Vial IV 40 mg DAILY REGINA Administration Sertraline HCl 50 mg 04/11/22 09:00 04/13/22 08:50 Sertraline 50 Mg Tablet PO 50 mg DAILY REGINA Administration Objective Ventilator Parameters: Ventilator Settings FiO2 80 Labs Result Diagrams: 04/12/22 04:45 04/12/22 06:35 Exam Vital Signs (past 8 hours): - 04/13/22 03:00 04/13/22 03:00 04/13/22 04:00 Pulse Rate 80 81 Respiratory Rate 16 34 H Blood Pressure 105/53 L 92/52 L Pulse Oximetry 95 95 Oxygen Delivery Method Heated High Flow Oxygen Flow Rate Fraction of Inspired Oxygen 04/13/22 05:00 04/13/22 06:00 04/13/22 02:00 Pulse Rate 102 H 99 H Respiratory Rate 24 25 H Blood Pressure 135/68 138/75 108/56 L Pulse Oximetry 94 91 Oxygen Delivery Method Oxygen Flow Rate Fraction of Inspired Oxygen 04/13/22 02:00 04/13/22 03:15 04/13/22 03:15 Pulse Rate 75 Respiratory Rate 32 H 24 Blood Pressure Pulse Oximetry 96 95 95 Oxygen Delivery Method Heated High Flow Oxygen Flow Rate 55 Fraction of Inspired Oxygen 100 04/13/22 04:00 04/13/22 05:30 04/13/22 07:00 Pulse Rate 83 Respiratory Rate 36 H 26 H Blood Pressure 92/52 L 129/67 Pulse Oximetry 96 94 Oxygen Delivery Method Oxygen Flow Rate Fraction of Inspired Oxygen 04/13/22 07:00 04/13/22 08:00 04/13/22 08:00 Pulse Rate 80 65 Respiratory Rate 21 17 Blood Pressure 105/57 L Pulse Oximetry 96 97 Oxygen Delivery Method Oxygen Flow Rate Fraction of Inspired Oxygen 04/13/22 08:35 04/13/22 09:00 04/13/22 09:00 Pulse Rate 96 H 103 H Respiratory Rate 24 26 H Blood Pressure 151/81 H Pulse Oximetry 95 95 Oxygen Delivery Method Oxygen Flow Rate Fraction of Inspired Oxygen Fraction of Inspired Oxygen 100 Oxygen Delivery Method Heated High Flow Oxygen Flow Rate 55 Quality TeleICU VTE Deep Vein Thrombosis/Pulmonary Embolism Present on Admission: No Assessment & Plan Assessment and plan (1) ARDS (adult respiratory distress syndrome): Status: Acute Plan: secondary to COVID. Cont current care including decadron BID, Baricitinib and remdesivir. Precedex for resp distress. HFNC or BiPAP. Lovenox BID. Keep negative fluid balance (500-1L/day). COncerned that pt is not improving which is not a good sign. Seems reasonable to continue azithro for now, but I would not completely object to stopping it either. Time Spent With Patient Critical Care time: I spent a total of [35] minutes of critical care time on this patient's care today; this time is exclusive of procedural time.
[2022-04-13 12:25] LABS: Add Manual Diff / Slide Review NO; Basophils Absolute Auto 0 /uL (0-100); Basophils Percent Auto 0.1 % (0-2); Eosinophils Absolute Auto 0 /uL (0-450); Hematocrit 33.5 % (36-46); Hemoglobin 11.5 g/dL (12.0-16.0); Lymphocytes Absolute Auto 200 /uL (1100-4500); Lymphocytes Percent Auto 1.5 % (25-40); Mean Corpuscular HGB Conc 34.4 % (30-36); Mean Corpuscular Hemoglobin 31.3 PG (26-34); Mean Corpuscular Volume 90.9 fL (80-100); Monocytes Absolute Auto 200 /uL (0-900); Monocytes Percent Auto 1.5 % (3-14); Neutrophils Absolute Auto 11700 /uL (1500-7000); Neutrophils Percent Auto 96.9 % (50-75); Platelet Count 185 X10^3/uL (150-400); Red Blood Cell Count 3.68 X10^6/uL (4.0-5.2); Red Cell Distribution Width 15.5 % (11.6-14.8); White Blood Cell Count 12.1 X10^3/uL (4.5-11.0)
[2022-04-13 12:47] LABS: BUN Creatinine Ratio 31.7 (6-22); Blood Urea Nitrogen 19 mg/dL (7-17); Calcium 7.6 mg/dL (8.4-10.2); Carbon Dioxide 29 mmol/L (22-32); Chloride 87 mmol/L (98-107); Estimated Glomerular Filt Rate > 60 mL/min (>60); Glucose 121 mg/dL (80-110); HEMOLYSIS < 15 (0-50); Potassium 3.3 mmol/L (3.4-5.1); Sodium 122 mmol/L (137-145)
[2022-04-13 14:12] LABS: Legionella pneumo Antigen Negative (Negative)
[2022-04-13] MEDS: POTASSIUM CHLORIDE 20 MEQ/15 ML UDC 40 MEQ PO ×2 (15:19→20:38)
[2022-04-13] MEDS: REMDESIVIR 100 MG in SODIUM CHLORIDE 0.9% 230 ML 250 MG IV (15:19)
--- NOTE | 2022-04-13 15:57 | CM.DPC ---
DCP CONT: Patient's son, Rivas called. He wanted to ensure that patient has her cell phone charged. Yesterday, he delivered mon to her. Confirmed that patient resides in [place] with spouse, and he lives nearby. Plan is home when medically stable. Home health is an option as well. P: DCP to continue to follow. Plan is home when patient is deemed medically stable. Patient may need to work with P.T before discharge, to see if home health may be an option. Dianna King RN/Hair Sample Matcher
[2022-04-13] MEDS: dexmedeTOMIDine in 0.9 % NaCL 400 MCG/100 ML PLAST..BAG IV (17:40)
[2022-04-13] MEDS: SODIUM CHLORIDE 0.9% 1,000 ML 75 ML IV (17:40)
[2022-04-13] MEDS: AZITHROMYCIN 500 MG in DEXTROSE 5% IN WATER 250 ML 250 MG IV (17:43)
--- NOTE | 2022-04-13 17:43 | PM.PN.1 ---
Subjective Subjective Date Patient Seen: 04/13/22 Time Patient Seen: 17:43 Interval history: Patient with uneventful day. Patient slept well last night and rested well Sodium was low and Normal saline at 75cc/hour will continue with same treatment Labs in am and re-evaluate Exam Vital Signs (past 8 hours): - 04/13/22 10:00 04/13/22 10:00 04/13/22 11:00 Temperature 98.7 F Pulse Rate 97 H 104 H Respiratory Rate 10 L 36 H Blood Pressure 130/71 Pulse Oximetry 95 87 L Oxygen Delivery Method Oxygen Flow Rate Fraction of Inspired Oxygen 04/13/22 11:01 04/13/22 11:01 04/13/22 11:05 Temperature Pulse Rate 102 H Respiratory Rate 35 H Blood Pressure 141/62 H Pulse Oximetry 78 L 93 Oxygen Delivery Method Oxygen Flow Rate 55 Fraction of Inspired Oxygen 95 04/13/22 11:10 04/13/22 12:00 04/13/22 12:01 Temperature 98.5 F Pulse Rate 104 H 105 H Respiratory Rate 20 24 Blood Pressure 141/62 H 134/63 Pulse Oximetry 91 83 L Oxygen Delivery Method Oxygen Flow Rate Fraction of Inspired Oxygen 04/13/22 12:01 04/13/22 13:00 04/13/22 13:00 Temperature Pulse Rate 104 H 104 H Respiratory Rate 47 H 26 H Blood Pressure 117/62 Pulse Oximetry 81 L 92 Oxygen Delivery Method Oxygen Flow Rate 55 Fraction of Inspired Oxygen 04/13/22 12:00 04/13/22 14:00 04/13/22 14:00 Temperature Pulse Rate 107 H Respiratory Rate 32 H Blood Pressure 112/72 Pulse Oximetry 92 Oxygen Delivery Method Heated High Flow Oxygen Flow Rate Fraction of Inspired Oxygen 04/13/22 13:45 04/13/22 15:00 04/13/22 15:00 Temperature 98 F Pulse Rate 107 H 79 Respiratory Rate 24 26 H Blood Pressure 117/62 115/60 Pulse Oximetry 94 97 Oxygen Delivery Method Oxygen Flow Rate 55 Fraction of Inspired Oxygen 04/13/22 16:00 04/13/22 16:00 04/13/22 16:00 Temperature Pulse Rate 92 H 76 Respiratory Rate 24 21 Blood Pressure 115/60 115/58 L Pulse Oximetry 92 96 Oxygen Delivery Method Oxygen Flow Rate Fraction of Inspired Oxygen 04/13/22 17:00 04/13/22 17:00 Temperature Pulse Rate 85 Respiratory Rate 35 H Blood Pressure 127/69 Pulse Oximetry 92 Oxygen Delivery Method Oxygen Flow Rate Fraction of Inspired Oxygen Fraction of Inspired Oxygen 95 Oxygen Delivery Method Heated High Flow Oxygen Flow Rate 55 Objective Labs Result Diagrams: 04/13/22 11:15 04/13/22 11:15 Labs: Laboratory Results - last 24 hr 04/11/22 04/13/22 04/13/22 22:44 11:15 11:15 WBC 12.1 H RBC 3.68 L Hgb 11.5 L Hct 33.5 L MCV 90.9 MCH 31.3 MCHC 34.4 RDW 15.5 H Plt Count 185 Neut % (Auto) 96.9 H Lymph % (Auto) 1.5 L Cowley % (Auto) 1.5 L Eos % (Auto) 0.0 L Baso % (Auto) 0.1 Neut # (Auto) 69080 H Lymph # (Auto) 200 L Cowley # (Auto) 200 Eos # (Auto) 0 Baso # (Auto) 0 Sodium 122 L Potassium 3.3 L Chloride 87 L Carbon Dioxide 29 BUN 19 H Creatinine 0.60 Estimated GFR > 60 BUN/Creatinine Ratio 31.7 H Glucose 121 H Calcium 7.6 L L.pneumophila Antigen Negative [facility] Medical History Anemia Anxiety Easy bruisability Eczema GERD (gastroesophageal reflux disease) Headache, migraine HTN (hypertension) Hx of scarlet fever Surgical History History of ankle surgery (~01/1992) History of lung biopsy (08/24/21) History of surgical procedure History of surgical procedure (11/2013) 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 Quality VTE Deep Vein Thrombosis/Pulmonary Embolism Present on Admission: No
--- NOTE | 2022-04-13 20:40 | PM.ICURNDS ---
- Date Patient Seen: 04/13/22 Time Patient Seen: 20:40 :: This patient was seen via real time interactive two-way audiovisual telecommunication. Note: continue high flow steroids low threshold for intubation ,pt now full code
--- NOTE | 2022-04-13 21:52 | RT ---
RT called to Pt bedside due to desats with exertion. On arrival Pt sats 85% on HFNC 55L 100%. Bipap trial was initiated unsuccessfully. Pt unable to tolerate bipap on. HFNC 60L 100% plus 15L NRB was initiated with sats 95%. Pt is comfortable at this time. Pt able to rest.
--- NOTE | 2022-04-13 22:08 | PC.NURSE ---
~0 patient trying to reposition herself in bed, causing her to desaturate to mid 30's. RT called to bedside. Trialed patient on Bipap however patient did not tolerate well despite increasing precedex ggt. RT placed patient back on max heated high flow with a non-rebreather on top. Patient tolerating well at this time and saturating > 95%. Dr. Thomas updated on patient's status. Will continue to closely monitor patient's respiratory status.
--- NOTE | 2022-04-13 22:56 | P.TELICUIN_ITS ---
Teleintensivist Intervention Date/Time Was camera activated?: Yes Date Patient Seen: 04/13/22 Issue(s) Addressed Issue(s): Resp. Distress/Ventilator management Other:: Desaturation Intervention(s) :: Called by bedside RN that patient with episode of desaturation with exertion. Was on HFNC 100%/55L and a NRB had been placed on top. Patient was tachypneic above her baseline during the episode. On my tele-eval, patient satting at 97- 98%, she is tachypneic but this is improving to the low 20s. She denies distress. Plan to have patient rest, try to remove NRB and see how she can handle HFNC alone. RNs reported they tried BiPAP earlier w/o success. If patient unable to remain on her previous maxed HFNC, will consider intubation. Patient confirms this is within her GOC. In the event of intubation, she requests we notify her son.
[2022-04-14] VITALS (37 sets, daily range): BP systolic 96–191; BP diastolic 53–116; PULSE 55–122; RESP 16–59; TEMP 35.9–36.1; O2SAT 70–99
[2022-04-14 04:22] LABS: Basophils Absolute Auto 0 /uL (0-100); Basophils Percent Auto 0.1 % (0-2); Eosinophils Absolute Auto 0 /uL (0-450); Hemoglobin 10.6 g/dL (12.0-16.0); Lymphocytes Absolute Auto 200 /uL (1100-4500); Monocytes Absolute Auto 300 /uL (0-900)
[2022-04-14 04:31] LABS: Alanine Aminotransferase 26 IU/L (<35); Albumin 2.7 g/dL (3.5-5.0); Albumin Globulin Ratio 1.2 (1.0-2.8); Alkaline Phosphatase 100 U/L (38-126); Aspartate Aminotransferase 48 IU/L (14-36); BUN Creatinine Ratio 34.4 (6-22); Bilirubin Total 0.5 mg/dL (0.2-1.3); Blood Urea Nitrogen 22 mg/dL (7-17); Carbon Dioxide 25 mmol/L (22-32); Chloride 92 mmol/L (98-107); Estimated Glomerular Filt Rate > 60 mL/min (>60); Globulin 2.3 g/dL (1.7-4.1); Glucose 124 mg/dL (80-110); HEMOLYSIS < 15 (0-50); Potassium 4.5 mmol/L (3.4-5.1); Sodium 121 mmol/L (137-145)
[2022-04-14 04:38] LABS: Add Manual Diff / Slide Review NO; Eosinophils Percent Auto 0.1 % (2-4); Hematocrit 30.9 % (36-46); Lymphocytes Percent Auto 1.8 % (25-40); Mean Corpuscular HGB Conc 34.3 % (30-36); Mean Corpuscular Hemoglobin 30.7 PG (26-34); Mean Corpuscular Volume 89.6 fL (80-100); Monocytes Percent Auto 2.7 % (3-14); Neutrophils Absolute Auto 10900 /uL (1500-7000); Neutrophils Percent Auto 95.3 % (50-75); Platelet Count 155 X10^3/uL (150-400); Red Blood Cell Count 3.44 X10^6/uL (4.0-5.2); Red Cell Distribution Width 15.7 % (11.6-14.8); White Blood Cell Count 11.4 X10^3/uL (4.5-11.0)
[2022-04-14] MEDS: SODIUM CHLORIDE 0.9% 1,000 ML 75 ML IV (07:21)
[2022-04-14] MEDS: dexmedeTOMIDine in 0.9 % NaCL 400 MCG/100 ML PLAST..BAG 7.5 MCG IV (07:21)
[2022-04-14] MEDS: LORazepam 0.5 MG TABLET PO (08:18)
[2022-04-14] MEDS: PANTOPRAZOLE 40 MG VIAL IV (08:18)
[2022-04-14] MEDS: BARICITINIB 2 MG TABLET 4 MG PO (08:18)
[2022-04-14] MEDS: DEXAMETHASONE 10 MG/ML VIAL 6 MG IV ×2 (08:18→20:08)
[2022-04-14] MEDS: ASPIRIN EC 81 MG TABLET PO (08:18)
[2022-04-14] MEDS: ENOXAPARIN 40 MG/0.4 ML SYRINGE SUBCUT ×2 (08:19→20:09)
[2022-04-14] MEDS: SERTRALINE 50 MG TABLET PO (08:19)
--- NOTE | 2022-04-14 09:00 | DIET.CONS2 ---
Dietary Inpatient Consultation Note Admission Date: 04/10/2022 15:32 RD spoke c RN regarding pts guarded PO intake. Pt having difficulty alternating breathing c breathing support and chewing meals. Kitchen to send up Easy Chew meals and ONS tid to support nutrition status. Diet: 04/10/22 Breakfast General (Regular) Diet Diet Modifications: easy chew, Enlive tid Nutrition Percent Meal Consumed 5 04/13/22 22:00 Percent Meal Consumed 100% 04/13/22 14:00 Percent Meal Consumed 50% 04/13/22 10:00 Electronically Signed by: Sima Gardner 04/14/22 09:00 Clinical Dietitian [address] [id number]
--- NOTE | 2022-04-14 09:50 | P.TELICUPN_ITS ---
Subjective Subjective If camera was activated, add TeleICU A-V statement: Patient was discussed on rounds with bedside nurse using real time 2 way A-V equipment. I also observed the patient in her room (she was watching TV and was breathing comfortably). Date Patient Seen: 04/14/22 Provider location (State): [place] Interval history: Pt had a episode of desaturation into 30s last night, but vita to come back up. Per bedside nurse, breathing about the same as yesterday, patient continues to desaturate wit minimal movement, sats in low 90s on HFNC 100% Current Medications Current Medications Medications: Home Medications calcium citrate 200 mg (950 mg) tablet (Calcitrate) 600 mg PO BID ##0 06/11/17 [History Confirmed 04/10/22] omeprazole 20 mg capsule,delayed release 20 mg PO BID 01/31/18 [History Confirmed 04/10/22] amlodipine 2.5 mg tablet 2.5 mg PO BID 08/24/21 [History Confirmed 04/10/22] lorazepam 0.5 mg tablet 0.5 mg PO DAILY 08/24/21 [History Confirmed 04/10/22] losartan 100 mg tablet 100 mg PO DAILY 08/24/21 [History Confirmed 04/10/22] sertraline 50 mg tablet 50 mg PO DAILY 08/24/21 [History Confirmed 04/10/22] aspirin 81 mg capsule 81 mg PO DAILY 09/02/21 [History Confirmed 04/10/22] cholecalciferol (vitamin D3) 25 mcg (1,000 unit) capsule (Vitamin D3) 25 mcg PO DAILY 09/02/21 [History Confirmed 04/10/22] codeine 10 mg-guaifenesin 300 mg tablet 1 tab PO PRN PRN Cough 09/02/21 [History Confirmed 04/10/22] diphenhydramine HCl 25 mg capsule 25 mg DAILY 09/02/21 [History Confirmed 04/10/22] multivitamin 1 tab PO DAILY 09/02/21 [History Confirmed 04/10/22] Tylenol 500 mg PO PRN PRN Severe Pain (Scale Score 7-10) 11/30/21 [History Confirmed 04/10/22] Visit Medications (administered) Generic Name Dose Route Start Last Admin Trade Name Freq PRN Reason Stop Dose Admin Acetaminophen 650 mg 04/10/22 18:09 04/14/22 05:04 Acetaminophen 325 Mg Tablet PO Not Given Q6HR REGINA Hydrocodone Bitart/Acetaminophen 1 tab 04/10/22 18:09 04/12/22 22:06 Hydrocodone/Acet 5/325 Tablet PO 1 tab Q8H PRN Administration pain Amlodipine Besylate 2.5 mg 04/10/22 21:00 04/14/22 09:26 Amlodipine 5 Mg Tablet PO Not Given BID REGINA Aspirin 81 mg 04/11/22 09:00 04/14/22 08:18 Aspirin Ec 81 Mg Tablet PO 81 mg DAILY REGINA Administration Dexamethasone 6 mg 04/12/22 21:00 04/14/22 08:18 Dexamethasone 10 Mg/Ml Vial IV 6 mg BID REGINA Administration Enoxaparin Sodium 40 mg 04/12/22 21:00 04/14/22 08:19 Enoxaparin 40 Mg/0.4 Ml Syringe SUBCUT 40 mg BID REGINA Administration Heparin Sodium (Porcine) 50 unit 04/11/22 21:00 04/14/22 08:19 Heparin Flush (Cl/Picc/Mid-Line) 50 Unit/5 Ml Syringe IV 50 unit BID REGINA Administration Azithromycin 500 mg/ Dextrose 250 mls @ 250 mls/hr 04/10/22 17:30 04/13/22 19:46 IV Infused Q24H REGINA Infusion dexmedeTOMIDine in 0.9 % NaCL 400 mcg in 100 mls @ 3.75 mls/hr 04/11/22 08:15 04/14/22 09:22 Precedex IV 0.6 mcg/kg/hr TITRATE REGINA 11.25 mls/hr Titration Protocol 0.2 MCG/KG/HR Remdesivir 100 mg/ Sodium 250 mls @ 250 mls/hr 04/11/22 15:00 04/13/22 19:03 Chloride IV 04/14/22 15:59 Infused 1500 REGINA Infusion Lorazepam 0.5 mg 04/12/22 10:45 04/14/22 08:18 Lorazepam 0.5 Mg Tablet PO 0.5 mg DAILY REGINA Administration Pantoprazole Sodium 40 mg 04/12/22 09:00 04/14/22 08:18 Pantoprazole 40 Mg Vial IV 40 mg DAILY REGINA Administration Objective Ventilator Parameters: Ventilator Settings FiO2 95 Labs Result Diagrams: 04/14/22 04:00 04/14/22 04:00 Labs: Laboratory Results - last 24 hr 04/11/22 04/13/22 04/13/22 22:44 11:15 11:15 WBC 12.1 H RBC 3.68 L Hgb 11.5 L Hct 33.5 L MCV 90.9 MCH 31.3 MCHC 34.4 RDW 15.5 H Plt Count 185 Neut % (Auto) 96.9 H Lymph % (Auto) 1.5 L [place] % (Auto) 1.5 L Eos % (Auto) 0.0 L Baso % (Auto) 0.1 Neut # (Auto) 46846 H Lymph # (Auto) 200 L [place] # (Auto) 200 Eos # (Auto) 0 Baso # (Auto) 0 Sodium 122 L Potassium 3.3 L Chloride 87 L Carbon Dioxide 29 BUN 19 H Creatinine 0.60 Estimated GFR > 60 BUN/Creatinine Ratio 31.7 H Glucose 121 H Calcium 7.6 L Total Bilirubin AST ALT Alkaline Phosphatase Total Protein Albumin Globulin Albumin/Globulin Ratio L.pneumophila Antigen Negative 04/14/22 04/14/22 04:00 04:00 WBC 11.4 H RBC 3.44 L Hgb 10.6 L Hct 30.9 L MCV 89.6 MCH 30.7 MCHC 34.3 RDW 15.7 H Plt Count 155 Neut % (Auto) 95.3 H Lymph % (Auto) 1.8 L [place] % (Auto) 2.7 L Eos % (Auto) 0.1 L Baso % (Auto) 0.1 Neut # (Auto) 28736 H Lymph # (Auto) 200 L [place] # (Auto) 300 Eos # (Auto) 0 Baso # (Auto) 0 Sodium 121 L Potassium 4.5 D Chloride 92 L Carbon Dioxide 25 BUN 22 H Creatinine 0.64 Estimated GFR > 60 BUN/Creatinine Ratio 34.4 H Glucose 124 H Calcium 7.0 L Total Bilirubin 0.5 AST 48 H ALT 26 Alkaline Phosphatase 100 Total Protein 5.0 L Albumin 2.7 L Globulin 2.3 Albumin/Globulin Ratio 1.2 L.pneumophila Antigen Exam Vital Signs (past 8 hours): - 04/14/22 02:00 04/14/22 02:01 04/14/22 02:01 Temperature Pulse Rate 122 H 115 H Respiratory Rate 59 H 35 H Blood Pressure 191/116 H Pulse Oximetry 70 L 75 L Oxygen Delivery Method Oxygen Flow Rate Fraction of Inspired Oxygen 04/14/22 02:07 04/14/22 02:07 04/14/22 02:05 Temperature Pulse Rate 93 H Respiratory Rate 34 H Blood Pressure 141/71 H Pulse Oximetry 95 Oxygen Delivery Method Heated High Flow Non -Rebreather Oxygen Flow Rate Fraction of Inspired Oxygen 04/14/22 02:05 04/14/22 03:00 04/14/22 03:00 Temperature Pulse Rate 67 Respiratory Rate 35 H Blood Pressure 97/53 L Pulse Oximetry 98 Oxygen Delivery Method Oxygen Flow Rate 60 Fraction of Inspired Oxygen 100 04/14/22 03:09 04/14/22 03:09 04/14/22 04:00 Temperature Pulse Rate Respiratory Rate 28 H Blood Pressure 136/70 Pulse Oximetry 98 98 Oxygen Delivery Method Heated High Flow Non -Rebreather Oxygen Flow Rate 75 Fraction of Inspired Oxygen 100 04/14/22 04:00 04/14/22 04:00 04/14/22 05:00 Temperature 97 F L Pulse Rate 94 H Respiratory Rate 37 H Blood Pressure 147/80 H Pulse Oximetry 92 Oxygen Delivery Method Heated High Flow Oxygen Flow Rate Fraction of Inspired Oxygen 04/14/22 05:00 04/14/22 06:00 04/14/22 06:00 Temperature Pulse Rate 83 81 Respiratory Rate 24 23 Blood Pressure 150/69 H Pulse Oximetry 94 94 Oxygen Delivery Method Oxygen Flow Rate Fraction of Inspired Oxygen 04/14/22 06:10 04/14/22 06:10 04/14/22 07:00 Temperature Pulse Rate Respiratory Rate 26 H Blood Pressure 117/66 Pulse Oximetry 94 94 Oxygen Delivery Method Heated High Flow Oxygen Flow Rate 60 Fraction of Inspired Oxygen 100 04/14/22 07:00 04/14/22 08:00 04/14/22 08:00 Temperature Pulse Rate 85 86 Respiratory Rate 27 H 28 H Blood Pressure 130/72 Pulse Oximetry 97 95 Oxygen Delivery Method Oxygen Flow Rate Fraction of Inspired Oxygen 04/14/22 09:00 04/14/22 09:00 Temperature Pulse Rate 93 H Respiratory Rate 28 H Blood Pressure 147/69 H Pulse Oximetry 79 L Oxygen Delivery Method Oxygen Flow Rate Fraction of Inspired Oxygen Fraction of Inspired Oxygen 100 Oxygen Delivery Method Heated High Flow Oxygen Flow Rate 60 Quality TeleICU VTE Deep Vein Thrombosis/Pulmonary Embolism Present on Admission: No Assessment & Plan Assessment and plan (1) ARDS (adult respiratory distress syndrome): Status: Acute Plan: Due to COVID and underlying lung CA. Cont current care. Pt is ~2L positive, she cannot afford to be volume up, thus her IVFs have been discontinued and I have increased her lasix to 20 q6h. Will check electrolytes this afternoon and replete K and Mg if needed. (2) Hyponatremia: Status: Acute Plan: Na 121 this AM. Likely due to SIADH and large volume of isotonic fluid administration. Will repeat BMP later this afternoon. If Na remains low, may need 3% infusion. At this point have stopped IVFs. Will also stop her zoloft as SSRIs can cause hyponatremia (unlikely in this case but would not like to muddy the water).Pts with SIADH bandar have low serum Uric acid levels, thus will check this afternoon Time Spent With Patient Critical Care time: I spent a total of [] minutes of critical care time on this patient's care today; this time is exclusive of procedural time.
[2022-04-14] MEDS: BENZONATATE 100 MG CAPSULE 200 MG PO (11:27)
[2022-04-14] MEDS: FUROSEMIDE 20 MG/2 ML VIAL IV ×3 (11:27→23:05)
[2022-04-14] MEDS: guaiFENesin ER 600 MG TAB PO (11:27)
[2022-04-14] MEDS: dexmedeTOMIDine in 0.9 % NaCL 400 MCG/100 ML PLAST..BAG 18.75 MCG IV ×2 (14:44→20:08)
[2022-04-14] MEDS: REMDESIVIR 100 MG in SODIUM CHLORIDE 0.9% 230 ML 250 MG IV (16:09)
--- NOTE | 2022-04-14 17:56 | PM.PN.1 ---
Subjective Subjective Date Patient Seen: 04/14/22 Time Patient Seen: 17:57 Interval history: Patient continues on Precedex currently on 1 mg and fairly sedated. O2 sats remain in the high 90s as long as she is sleeping. When she awakens in moves or tox for brief periods her oxygen level will decrease quickly to the 80s and she did have episode down into the 30s last night. When she awakens she is cognizant and intact and alert. She denies any pain. She is really been sleeping all day he is not eaten much. She denies any abdominal pain any chest pain. She states she feels good and very sleepy. Twelve point review of systems otherwise negative Exam Vital Signs (past 8 hours): - 04/14/22 10:00 04/14/22 10:00 04/14/22 10:38 Pulse Rate 78 Respiratory Rate 30 H Blood Pressure 120/57 L Pulse Oximetry 95 94 Oxygen Delivery Method High Flow Nasal Cannula Oxygen Flow Rate 60 Fraction of Inspired Oxygen 95 04/14/22 10:38 04/14/22 11:00 04/14/22 11:00 Pulse Rate 68 62 Respiratory Rate 28 H 21 Blood Pressure 120/57 L 106/59 L Pulse Oximetry 94 98 Oxygen Delivery Method Oxygen Flow Rate Fraction of Inspired Oxygen 04/14/22 12:00 04/14/22 12:00 04/14/22 13:00 Pulse Rate 62 Respiratory Rate 17 Blood Pressure 122/58 L 116/61 Pulse Oximetry 99 Oxygen Delivery Method Oxygen Flow Rate Fraction of Inspired Oxygen 04/14/22 13:00 04/14/22 14:00 04/14/22 14:00 Pulse Rate 62 66 Respiratory Rate 34 H 31 H Blood Pressure 118/59 L Pulse Oximetry 98 93 Oxygen Delivery Method Oxygen Flow Rate Fraction of Inspired Oxygen 04/14/22 15:12 04/14/22 15:14 04/14/22 15:00 Pulse Rate 62 Respiratory Rate 34 H Blood Pressure 122/63 122/63 Pulse Oximetry 99 99 Oxygen Delivery Method High Flow Nasal Cannula Oxygen Flow Rate 60 Fraction of Inspired Oxygen 95 04/14/22 15:00 04/14/22 16:00 04/14/22 16:00 Pulse Rate 61 62 Respiratory Rate 34 H 35 H Blood Pressure 126/65 Pulse Oximetry 99 98 Oxygen Delivery Method Oxygen Flow Rate Fraction of Inspired Oxygen 04/14/22 12:00 04/14/22 17:00 04/14/22 17:00 Pulse Rate 62 Respiratory Rate 24 Blood Pressure 141/68 H Pulse Oximetry 99 Oxygen Delivery Method Heated High Flow Oxygen Flow Rate Fraction of Inspired Oxygen 04/14/22 16:00 04/14/22 17:42 04/14/22 17:42 Pulse Rate 61 Respiratory Rate 24 Blood Pressure 141/68 H Pulse Oximetry 94 94 Oxygen Delivery Method Heated High Flow High Flow Nasal Cannula Oxygen Flow Rate 60 Fraction of Inspired Oxygen 100 Fraction of Inspired Oxygen 100 Oxygen Delivery Method High Flow Nasal Cannula Oxygen Flow Rate 60 Narrative Exam Narrative: Patient is sleepy resting comfortably in hospital bed and when awakened is alert and oriented x3 and appropriate HEENT patient has some blood at the external nares bilaterally Neck: Supple without adenopathy Chest: Unchanged lung exam, no rhonchi or wheezes but fine crackles diffusely with diminished breath sounds in the bases Cor: Distant S1-S2, regular rate and rhythm Abdomen: Positive bowel sounds, soft, nontender, nondistended Extremities trace edema, nonpitting Objective Labs Result Diagrams: 04/14/22 04:00 04/14/22 04:00 Labs: Laboratory Results - last 24 hr 04/14/22 04/14/22 04:00 04:00 WBC 11.4 H RBC 3.44 L Hgb 10.6 L Hct 30.9 L MCV 89.6 MCH 30.7 MCHC 34.3 RDW 15.7 H Plt Count 155 Neut % (Auto) 95.3 H Lymph % (Auto) 1.[address] [place] % (Auto) 2.7 L Eos % (Auto) 0.1 L Baso % (Auto) 0.1 Neut # (Auto) 34790 H Lymph # (Auto) [address] [place] # (Auto) 300 Eos # (Auto) 0 Baso # (Auto) 0 Sodium 121 L Potassium 4.5 D Chloride 92 L Carbon Dioxide 25 BUN 22 H Creatinine 0.64 Estimated GFR > 60 BUN/Creatinine Ratio 34.4 H Glucose 124 H Calcium 7.0 L Total Bilirubin 0.5 AST 48 H ALT 26 Alkaline Phosphatase 100 Total Protein 5.0 L Albumin 2.7 L Globulin 2.3 Albumin/Globulin Ratio 1.2 PFSH Medical History Anemia Anxiety Easy bruisability Eczema GERD (gastroesophageal reflux disease) Headache, migraine HTN (hypertension) Hx of scarlet fever Surgical History History of ankle surgery (~01/1992) History of lung biopsy (08/24/21) History of surgical procedure History of surgical procedure (11/2013) 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 Plan: Appreciate tele ICU held. Continue with Precedex and current support. Continue with remdesivir and dexamethasone and baricitinib. Will give last dose of azithromycin and. After tonight because she will have received 5 days unless recommended further treatment by tele protection consultant. Assessment 2. Hypertension remains well controlled with Precedex. Amlodipine was held today so he would have more blood pressure to work with and able to sedate her further with the Precedex. Assessment 3. Hyponatremia. IV fluids were stopped and Lasix increased and Zoloft was stopped as this may be contributing though most likely related to overall illness Assessment 4. Lung cancer stage III in separate primaries stage I Plan: Currently done with radiation and chemotherapy and currently receiving immunotherapy and would have been due for the next dose last TuesdayApril 12. Assessment 5. Anxiety stable Plan: Patient is sedated with Precedex will give lorazepam as needed. Assessment 6. Hypokalemia improved Plan: Lytes will be rechecked currently Assessment 7. GI prophylaxis Plan: Continue proton pump inhibitor IV Assessment 8. DVT prophylaxis patient is on twice a day Lovenox. Time Spent With Patient Critical Care time: I spent a total of [] minutes of critical care time on this patient's care today; this time is exclusive of procedural time. Quality VTE Deep Vein Thrombosis/Pulmonary Embolism Present on Admission: No
[2022-04-14] MEDS: AZITHROMYCIN 500 MG in DEXTROSE 5% IN WATER 250 ML 250 MG IV (18:04)
[2022-04-14 18:50] LABS: BUN Creatinine Ratio 27.5 (6-22); Blood Urea Nitrogen 19 mg/dL (7-17); Calcium 6.8 mg/dL (8.4-10.2); Carbon Dioxide 26 mmol/L (22-32); Chloride 91 mmol/L (98-107); Estimated Glomerular Filt Rate > 60 mL/min (>60); Glucose 237 mg/dL (80-110); HEMOLYSIS < 15 (0-50); Potassium 4.2 mmol/L (3.4-5.1); Sodium 124 mmol/L (137-145); Uric Acid 2.7 mg/dL (2.5-6.2)
[2022-04-14] MEDS: AMLODIPINE 5 MG TABLET 2.5 MG PO (20:09)
--- NOTE | 2022-04-14 20:38 | PM.ICURNDS ---
- Date Patient Seen: 04/14/22 Time Patient Seen: 20:38 :: This patient was seen via real time interactive two-way audiovisual telecommunication. Note: appears comfortable on high flow sats 93% hr 60s no resp distress sodium improved to 124, continue current care
[2022-04-15] VITALS (38 sets, daily range): BP systolic 91–145; BP diastolic 53–84; PULSE 54–111; RESP 14–44; TEMP 35.9–36.1; O2SAT 62–97
[2022-04-15] MEDS: dexmedeTOMIDine in 0.9 % NaCL 400 MCG/100 ML PLAST..BAG 18.75 MCG IV ×5 (01:34→21:52)
[2022-04-15] MEDS: FUROSEMIDE 20 MG/2 ML VIAL IV ×2 (04:51→20:20)
[2022-04-15 05:15] LABS: Add Manual Diff / Slide Review NO; Basophils Absolute Auto 0 /uL (0-100); Basophils Percent Auto 0.1 % (0-2); Eosinophils Absolute Auto 0 /uL (0-450); Eosinophils Percent Auto 0.1 % (2-4); Hematocrit 32.5 % (36-46); Hemoglobin 11.3 g/dL (12.0-16.0); Lymphocytes Absolute Auto 200 /uL (1100-4500); Lymphocytes Percent Auto 1.4 % (25-40); Mean Corpuscular HGB Conc 34.8 % (30-36); Mean Corpuscular Hemoglobin 30.9 PG (26-34); Mean Corpuscular Volume 88.7 fL (80-100); Monocytes Absolute Auto 300 /uL (0-900); Monocytes Percent Auto 2.1 % (3-14); Neutrophils Absolute Auto 13200 /uL (1500-7000); Neutrophils Percent Auto 96.3 % (50-75); Platelet Count 153 X10^3/uL (150-400); Red Blood Cell Count 3.67 X10^6/uL (4.0-5.2); Red Cell Distribution Width 15.8 % (11.6-14.8); White Blood Cell Count 13.7 X10^3/uL (4.5-11.0)
[2022-04-15 05:22] LABS: BUN Creatinine Ratio 34.7 (6-22); Blood Urea Nitrogen 25 mg/dL (7-17); Calcium 7.2 mg/dL (8.4-10.2); Carbon Dioxide 26 mmol/L (22-32); Chloride 91 mmol/L (98-107); Estimated Glomerular Filt Rate > 60 mL/min (>60); Glucose 121 mg/dL (80-110); HEMOLYSIS < 15 (0-50); Potassium 3.9 mmol/L (3.4-5.1); Sodium 122 mmol/L (137-145)
[2022-04-15 05:28] LABS: D Dimer 4419 ng/mL (<230)
--- NOTE | 2022-04-15 08:34 | PM.PN.1 ---
Subjective Subjective Date Patient Seen: 04/15/22 Time Patient Seen: 08:34 Interval history: Met with patient to separate times today. Spoke with her son, Rivas this morning and then spoke with her and 2 sons this evening. Patient with slow progressive increase in oxygen needs and inability to maintain oxygen saturations with any movement or talking. Conversation this morning with patient regarding intubation and the likelihood that this would not save her life but may possibly hasten her . We discussed given her lung cancer and radiation and comorbidities that going on a ventilator likely we would not be able to discontinue the ventilator. Patient was very candid and ramona and that she did not want to be intubated. Therefore her code status was changed to do not intubate and do not resuscitate. Patient was able to meet with her and sons. She continued to remain stable throughout the day but very tenuous and then at 5:30 p.m. she became acutely tachypneic and tachycardic and hypoxic with an oxygen saturation down into the 20s. She was quite anxious and was given 0.5 mg of p.o. lorazepam as the hospital did not have any further IV lorazepam. It took approximately an hour for her oxygenation to get up into the 60s and slowly into the 80s and now has maintained in the 80s. She was given 2 mg of morphine. Her family was contacted and they were on their way in to see her and we discussed her condition and the sudden decline and we discussed potential etiologies and what we were doing to reverse those. Patient has not had much appetite but is drinking fluids Patient denies any pain. Exam Vital Signs (past 8 hours): - 04/15/22 01:00 04/15/22 01:00 04/15/22 02:00 Temperature Pulse Rate 66 Respiratory Rate 28 H Blood Pressure 107/55 L 118/60 Pulse Oximetry 79 L Oxygen Delivery Method Oxygen Flow Rate Fraction of Inspired Oxygen 04/15/22 02:00 04/15/22 03:00 04/15/22 03:00 Temperature Pulse Rate 57 L Respiratory Rate 21 26 H Blood Pressure Pulse Oximetry 95 96 96 Oxygen Delivery Method Heated High Flow Oxygen Flow Rate 60 Fraction of Inspired Oxygen 100 04/15/22 03:00 04/15/22 03:00 04/15/22 04:00 Temperature 96.6 F L Pulse Rate 57 L Respiratory Rate 27 H Blood Pressure 125/58 L Pulse Oximetry 96 Oxygen Delivery Method Oxygen Flow Rate Fraction of Inspired Oxygen 04/15/22 04:00 04/15/22 04:00 04/15/22 05:00 Temperature Pulse Rate 56 L Respiratory Rate 16 Blood Pressure 138/71 Pulse Oximetry 96 Oxygen Delivery Method Heated High Flow Oxygen Flow Rate Fraction of Inspired Oxygen 04/15/22 05:00 04/15/22 06:00 04/15/22 06:01 Temperature Pulse Rate 60 54 L 54 L Respiratory Rate 28 H 31 H 32 H Blood Pressure Pulse Oximetry 90 L 95 96 Oxygen Delivery Method Oxygen Flow Rate Fraction of Inspired Oxygen 04/15/22 06:01 04/15/22 07:27 04/15/22 07:00 Temperature Pulse Rate 54 L Respiratory Rate 26 H Blood Pressure 107/55 L 105/57 L Pulse Oximetry 97 Oxygen Delivery Method Oxygen Flow Rate Fraction of Inspired Oxygen 04/15/22 07:00 04/15/22 08:00 04/15/22 08:00 Temperature Pulse Rate 56 L 59 L Respiratory Rate 22 28 H Blood Pressure 101/59 L Pulse Oximetry 92 94 Oxygen Delivery Method Oxygen Flow Rate Fraction of Inspired Oxygen 04/15/22 08:00 Temperature Pulse Rate Respiratory Rate Blood Pressure Pulse Oximetry Oxygen Delivery Method Heated High Flow Oxygen Flow Rate Fraction of Inspired Oxygen Fraction of Inspired Oxygen 100 Oxygen Delivery Method Heated High Flow Oxygen Flow Rate 60 Narrative Exam Narrative: Patient is alert she is able to open her eyes and talk. She is oriented x3. She appears perioral cyanosis. Neck: Supple without adenopathy Chest: Tachypnea with diminished breath sounds in the bases, essentially unchanged lung exam Cor: Regular rate and rhythm with distant S1-S2 Abdomen: Positive bowel sounds, soft, nontender Extremities: No edema Pulses intact Objective Labs Result Diagrams: 04/15/22 05:00 04/15/22 05:00 Labs: Laboratory Results - last 24 hr 04/14/22 04/15/22 04/15/22 18:00 05:00 05:00 WBC 13.7 H RBC 3.67 L Hgb 11.3 L Hct 32.5 L MCV 88.7 MCH 30.9 MCHC 34.8 RDW 15.8 H Plt Count 153 Neut % (Auto) 96.3 H Lymph % (Auto) 1.4 L [place] % (Auto) 2.1 L Eos % (Auto) 0.1 L Baso % (Auto) 0.1 Neut # (Auto) 59801 H Lymph # (Auto) 200 L [place] # (Auto) 300 Eos # (Auto) 0 Baso # (Auto) 0 D-Dimer 4419 H Sodium 124 L Potassium 4.2 Chloride 91 L Carbon Dioxide 26 BUN 19 H Creatinine 0.69 Estimated GFR > 60 BUN/Creatinine Ratio 27.5 H Glucose 237 H D Uric Acid 2.7 Calcium 6.8 L Magnesium 2.0 04/15/22 05:00 WBC RBC Hgb Hct MCV MCH MCHC RDW Plt Count Neut % (Auto) Lymph % (Auto) [place] % (Auto) Eos % (Auto) Baso % (Auto) Neut # (Auto) Lymph # (Auto) [place] # (Auto) Eos # (Auto) Baso # (Auto) D-Dimer Sodium 122 L Potassium 3.9 Chloride 91 L Carbon Dioxide 26 BUN 25 H Creatinine 0.72 Estimated GFR > 60 BUN/Creatinine Ratio 34.7 H Glucose 121 H D Uric Acid Calcium 7.2 L Magnesium PFSH Medical History Anemia Anxiety Easy bruisability Eczema GERD (gastroesophageal reflux disease) Headache, migraine HTN (hypertension) Hx of scarlet fever Surgical History History of ankle surgery (~01/1992) History of lung biopsy (08/24/21) History of surgical procedure History of surgical procedure (11/2013) 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 Patient with extremely poor prognosis. Patient is aware and family is aware and patient does not want to be intubated. She understands the poor prognosis if we proceeded with this. We will continue with supportive care. We will provide morphine as well as lorazepam as needed for air hunger and agitation. We will continue on Precedex and remdesivir and baricitinib and dexamethasone at this time and will re-evaluate in the morning. We will continue with the same Lovenox. Hyponatremia unchanged. She is off IV fluids. She is off Zoloft. It was improved last night but back down to 122 now. We will reassess in a.m.. Time Spent With Patient Critical Care time: I spent a total of [] minutes of critical care time on this patient's care today; this time is exclusive of procedural time. Quality VTE Deep Vein Thrombosis/Pulmonary Embolism Present on Admission: No
--- NOTE | 2022-04-15 09:15 | PM.PN.EICU ---
Subjective Subjective Date Patient Seen: 04/15/22 Patient Location: ICU Provider location (State): [place] Interval history: Pt continues to desaturate with minimal exertion. Sats drop into 70s and take a while to recover, only coming up to 80s. Current Medications Current Medications Medications: Home Medications calcium citrate 200 mg (950 mg) tablet (Calcitrate) 600 mg PO BID ##0 06/11/17 [History Confirmed 04/10/22] omeprazole 20 mg capsule,delayed release 20 mg PO BID 01/31/18 [History Confirmed 04/10/22] amlodipine 2.5 mg tablet 2.5 mg PO BID 08/24/21 [History Confirmed 04/10/22] lorazepam 0.5 mg tablet 0.5 mg PO DAILY 08/24/21 [History Confirmed 04/10/22] losartan 100 mg tablet 100 mg PO DAILY 08/24/21 [History Confirmed 04/10/22] sertraline 50 mg tablet 50 mg PO DAILY 08/24/21 [History Confirmed 04/10/22] aspirin 81 mg capsule 81 mg PO DAILY 09/02/21 [History Confirmed 04/10/22] cholecalciferol (vitamin D3) 25 mcg (1,000 unit) capsule (Vitamin D3) 25 mcg PO DAILY 09/02/21 [History Confirmed 04/10/22] codeine 10 mg-guaifenesin 300 mg tablet 1 tab PO PRN PRN Cough 09/02/21 [History Confirmed 04/10/22] diphenhydramine HCl 25 mg capsule 25 mg DAILY 09/02/21 [History Confirmed 04/10/22] multivitamin 1 tab PO DAILY 09/02/21 [History Confirmed 04/10/22] Tylenol 500 mg PO PRN PRN Severe Pain (Scale Score 7-10) 11/30/21 [History Confirmed 04/10/22] Visit Medications (administered) Generic Name Dose Route Start Last Admin Trade Name Freq PRN Reason Stop Dose Admin Hydrocodone Bitart/Acetaminophen 1 tab 04/10/22 18:09 04/12/22 22:06 Hydrocodone/Acet 5/325 Tablet PO 1 tab Q8H PRN Administration pain Amlodipine Besylate 2.5 mg 04/10/22 21:00 04/14/22 20:09 Amlodipine 5 Mg Tablet PO 2.5 mg BID REGINA Administration Aspirin 81 mg 04/11/22 09:00 04/14/22 08:18 Aspirin Ec 81 Mg Tablet PO 81 mg DAILY REGINA Administration Benzonatate 200 mg 04/14/22 10:40 04/14/22 11:27 Benzonatate 100 Mg Capsule PO 200 mg TID PRN Administration Cough Dexamethasone 6 mg 04/12/22 21:00 04/14/22 20:08 Dexamethasone 10 Mg/Ml Vial IV 6 mg BID REGINA Administration Enoxaparin Sodium 40 mg 04/12/22 21:00 04/14/22 20:09 Enoxaparin 40 Mg/0.4 Ml Syringe SUBCUT 40 mg BID REGINA Administration Furosemide 20 mg 04/14/22 09:45 04/15/22 04:51 Furosemide 20 Mg/2 Ml Vial IV 20 mg Q6HR REGINA Administration Guaifenesin 600 mg 04/14/22 10:41 04/14/22 11:27 Guaifenesin Er 600 Mg Tab PO 600 mg Q12HR PRN Administration Cough Heparin Sodium (Porcine) 50 unit 04/11/22 21:00 04/14/22 20:09 Heparin Flush (Cl/Picc/Mid-Line) 50 Unit/5 Ml Syringe IV 50 unit BID REGINA Administration Azithromycin 500 mg/ Dextrose 250 mls @ 250 mls/hr 04/10/22 17:30 04/14/22 19:30 IV Infused Q24H REGINA Infusion dexmedeTOMIDine in 0.9 % NaCL 400 mcg in 100 mls @ 3.75 mls/hr 04/11/22 08:15 04/15/22 06:43 Precedex IV 1 mcg/kg/hr TITRATE REGINA 18.75 mls/hr Administration Protocol 0.2 MCG/KG/HR Lorazepam 0.5 mg 04/12/22 10:45 04/14/22 08:18 Lorazepam 0.5 Mg Tablet PO 0.5 mg DAILY REGINA Administration Pantoprazole Sodium 40 mg 04/12/22 09:00 04/14/22 08:18 Pantoprazole 40 Mg Vial IV 40 mg DAILY REGINA Administration Objective Ventilator Parameters: Ventilator Settings FiO2 95 Labs Result Diagrams: 04/15/22 05:00 04/15/22 05:00 Labs: Laboratory Results - last 24 hr 04/14/22 04/15/22 04/15/22 18:00 05:00 05:00 WBC 13.7 H RBC 3.67 L Hgb 11.3 L Hct 32.5 L MCV 88.7 MCH 30.9 MCHC 34.8 RDW 15.8 H Plt Count 153 Neut % (Auto) 96.3 H Lymph % (Auto) 1.4 L [place] % (Auto) 2.1 L Eos % (Auto) 0.1 L Baso % (Auto) 0.1 Neut # (Auto) 42262 H Lymph # (Auto) 200 L [place] # (Auto) 300 Eos # (Auto) 0 Baso # (Auto) 0 D-Dimer 4419 H Sodium 124 L Potassium 4.2 Chloride 91 L Carbon Dioxide 26 BUN 19 H Creatinine 0.69 Estimated GFR > 60 BUN/Creatinine Ratio 27.5 H Glucose 237 H D Uric Acid 2.7 Calcium 6.8 L Magnesium 2.0 04/15/22 05:00 WBC RBC Hgb Hct MCV MCH MCHC RDW Plt Count Neut % (Auto) Lymph % (Auto) [place] % (Auto) Eos % (Auto) Baso % (Auto) Neut # (Auto) Lymph # (Auto) [place] # (Auto) Eos # (Auto) Baso # (Auto) D-Dimer Sodium 122 L Potassium 3.9 Chloride 91 L Carbon Dioxide 26 BUN 25 H Creatinine 0.72 Estimated GFR > 60 BUN/Creatinine Ratio 34.7 H Glucose 121 H D Uric Acid Calcium 7.2 L Magnesium Exam Vital Signs (past 8 hours): - 04/15/22 02:00 04/15/22 02:00 04/15/22 03:00 Temperature Pulse Rate 57 L Respiratory Rate 21 26 H Blood Pressure 118/60 Pulse Oximetry 95 96 Oxygen Delivery Method Oxygen Flow Rate Fraction of Inspired Oxygen 04/15/22 03:00 04/15/22 03:00 04/15/22 03:00 Temperature Pulse Rate 57 L Respiratory Rate 27 H Blood Pressure 125/58 L Pulse Oximetry 96 96 Oxygen Delivery Method Heated High Flow Oxygen Flow Rate 60 Fraction of Inspired Oxygen 100 04/15/22 04:00 04/15/22 04:00 04/15/22 04:00 Temperature 96.6 F L Pulse Rate 56 L Respiratory Rate 16 Blood Pressure Pulse Oximetry 96 Oxygen Delivery Method Heated High Flow Oxygen Flow Rate Fraction of Inspired Oxygen 04/15/22 05:00 04/15/22 05:00 04/15/22 06:00 Temperature Pulse Rate 60 54 L Respiratory Rate 28 H 31 H Blood Pressure 138/71 Pulse Oximetry 90 L 95 Oxygen Delivery Method Oxygen Flow Rate Fraction of Inspired Oxygen 04/15/22 06:01 04/15/22 06:01 04/15/22 07:27 Temperature Pulse Rate 54 L 54 L Respiratory Rate 32 H 26 H Blood Pressure 107/55 L Pulse Oximetry 96 97 Oxygen Delivery Method Oxygen Flow Rate Fraction of Inspired Oxygen 04/15/22 07:00 04/15/22 07:00 04/15/22 08:00 Temperature Pulse Rate 56 L Respiratory Rate 22 Blood Pressure 105/57 L 101/59 L Pulse Oximetry 92 Oxygen Delivery Method Oxygen Flow Rate Fraction of Inspired Oxygen 04/15/22 08:00 04/15/22 08:00 04/15/22 08:51 Temperature 97.0 F L Pulse Rate 59 L Respiratory Rate 28 H Blood Pressure Pulse Oximetry 94 Oxygen Delivery Method Heated High Flow Oxygen Flow Rate Fraction of Inspired Oxygen 04/15/22 08:59 04/15/22 09:00 Temperature Pulse Rate 65 Respiratory Rate 31 H Blood Pressure 109/56 L Pulse Oximetry 79 L Oxygen Delivery Method Oxygen Flow Rate Fraction of Inspired Oxygen Fraction of Inspired Oxygen 100 Oxygen Delivery Method Heated High Flow Oxygen Flow Rate 60 Quality TeleICU VTE Deep Vein Thrombosis/Pulmonary Embolism Present on Admission: No Assessment & Plan Assessment & Plan narrative: ARDS due to COVID-19 - Per d/w bedside nurse, there may be discussions between Dr Alejandre and pt and her son about goals of care/code status. I believe there is a very high probability that if patient gets intubated, she will not survive (I dont think pt will survive either way but will likely survive longer not-intubated). She may benefit from spending time with her son as opposed to dying on a ventilator. I would see if administration can loosen their visitation policy to let patients son visit and spend some time with his mother. I dont think the pt needs to be comfort care now, but I think it is very reasonable to change her code status to DNR/DNI. I would continue with full medical support at this time depending on patients wishes. I would at this point change her lasix back to BID dosing to aim to keep her negative ~500-1000ml/day. Seems reasonable to stop azithro at this point. Time Spent With Patient Critical Care time: I spent a total of [35] minutes of critical care time on this patient's care today; this time is exclusive of procedural time.
[2022-04-15] MEDS: PANTOPRAZOLE 40 MG VIAL IV (09:21)
[2022-04-15] MEDS: BARICITINIB 2 MG TABLET 4 MG PO (09:21)
[2022-04-15] MEDS: ENOXAPARIN 40 MG/0.4 ML SYRINGE SUBCUT ×2 (09:21→20:19)
[2022-04-15] MEDS: ASPIRIN EC 81 MG TABLET PO (09:22)
[2022-04-15] MEDS: DEXAMETHASONE 10 MG/ML VIAL 6 MG IV ×2 (09:22→20:20)
[2022-04-15] MEDS: LORazepam 0.5 MG TABLET PO ×2 (09:22→17:48)
--- NOTE | 2022-04-15 10:12 | PC.NURSE ---
Attempted to prone patient without success Sats dropped to 50 and 100% NRB added to HHF. Repositioned to high fowlers position and sats slowly recovered to 85 after approx 15 minutes. Pts asked am I dying and we explained that her lungs are not recovering. She asked if her family could visit so she could tell them she loves them. Coordinator contacted and requested family be allowed to visit.
--- NOTE | 2022-04-15 12:35 | RT ---
Changed out high flow nasal cannula secondary to being dirty.
[2022-04-15] MEDS: ACETAMINOPHEN 325 MG TABLET 650 MG PO (14:54)
[2022-04-15] MEDS: AZITHROMYCIN 500 MG in DEXTROSE 5% IN WATER 250 ML 250 MG IV (16:39)
--- NOTE | 2022-04-15 18:18 | PM.EICU.INT ---
Teleintensivist Intervention Date/Time Was camera activated?: Yes Date Patient Seen: 04/15/22 Time Patient Seen: 18:18 Issue(s) Addressed Issue(s): Goals of care/Code Status, Pain, Agitation, Sedation, Delirium and Resp. Distress/Ventilator management Intervention(s) :: called by RN pt with worsening resp distres, hypoxia to 70s, ativan not working asked for morphine. will order. pt is DNR/ DNI, suggest further goals of care discussion, comfort care maybe appropriate. can try bipap prn primary provider speaking to pt now please call eICU with any questions Plan discussed with: Nurse
[2022-04-15] MEDS: MORPHINE 2 MG/ML INJ IV (18:25)
--- NOTE | 2022-04-15 18:44 | PC.NURSE ---
1800 Pt suddenly felt severe air hunger, Sats dropped from 90's to 60 then down to 20's. NRB mask place and coached to breath slowly. MD notified, Ativan PO given and with no effect. Dr. Alejandre Here, [place] 2mg IVP given - able to relax and Sats increased to low 80's. Family notified of downturn.
[2022-04-15] MEDS: MORPHINE 50 MG in DEXTROSE 5 % IN WATER 45 ML IV (20:17)
[2022-04-16] VITALS (57 sets, daily range): BP systolic 63–137; BP diastolic 37–63; PULSE 0–88; RESP 0–34; TEMP 36.2–36.4; O2SAT 18–92
--- NOTE | 2022-04-16 01:46 | PC.NURSE ---
Addendum entered by Machelle Baldwin R.N. 04/16/22 18:37: Late entry: Patient had EKG changes at 0700. ST elevation in the setting of no chest pain, diaphoresis, or hemodynamic compromise. 12 lead EKG obtained and non-stemi confirmed. Dr. Miller notified, family notified to come to the hospital. Patient already on maximum 02 support for Covid Pneumonia, no orders at this time. Hospitalist made aware as patient currently not a DNR but a DNI. Shift report given to Day JERMAIN Aviles. Addendum entered by Machelle Baldwin R.N. 04/16/22 05:25: 0500- Patient request 'something to help me relax'. Medicated per order. Will monitor. Original Note: 0130- Patient desaturates quickly when 02 is off her nares. Rebound takes several minutes. Patient states the Morphine is helpful and she does seem to rest better with it infusing. Patient is on maximum 02 support with 100% NRB but does still desaturate periodically. Patient denies pain or discomfort. Will monitor.
[2022-04-16] MEDS: dexmedeTOMIDine in 0.9 % NaCL 400 MCG/100 ML PLAST..BAG 18.75 MCG IV ×3 (02:52→15:16)
[2022-04-16 03:55] LABS: Add Manual Diff / Slide Review NO; Alanine Aminotransferase 84 IU/L (<35); Albumin 2.3 g/dL (3.5-5.0); Albumin Globulin Ratio 1.1 (1.0-2.8); Alkaline Phosphatase 170 U/L (38-126); Aspartate Aminotransferase 84 IU/L (14-36); BUN Creatinine Ratio 40.6 (6-22); Basophils Absolute Auto 100 /uL (0-100); Basophils Percent Auto 0.6 % (0-2); Bilirubin Total 0.3 mg/dL (0.2-1.3); Blood Urea Nitrogen 26 mg/dL (7-17); Calcium 6.6 mg/dL (8.4-10.2); Carbon Dioxide 25 mmol/L (22-32); Chloride 94 mmol/L (98-107); Eosinophils Absolute Auto 0 /uL (0-450); Eosinophils Percent Auto 0.1 % (2-4); Estimated Glomerular Filt Rate > 60 mL/min (>60); Globulin 2.1 g/dL (1.7-4.1); Glucose 111 mg/dL (80-110); HEMOLYSIS < 15 (0-50); Hemoglobin 10.6 g/dL (12.0-16.0); Lymphocytes Absolute Auto 200 /uL (1100-4500); Lymphocytes Percent Auto 1.4 % (25-40); Mean Corpuscular HGB Conc 34.1 % (30-36); Mean Corpuscular Hemoglobin 30.6 PG (26-34); Mean Corpuscular Volume 89.7 fL (80-100); Monocytes Absolute Auto 200 /uL (0-900); Monocytes Percent Auto 1.3 % (3-14); Neutrophils Absolute Auto 14100 /uL (1500-7000); Neutrophils Percent Auto 96.6 % (50-75); Platelet Count 141 X10^3/uL (150-400); Potassium 3.3 mmol/L (3.4-5.1); Red Blood Cell Count 3.46 X10^6/uL (4.0-5.2); Red Cell Distribution Width 15.6 % (11.6-14.8); Sodium 123 mmol/L (137-145); Total Protein 4.4 g/dL (6.3-8.2); White Blood Cell Count 14.6 X10^3/uL (4.5-11.0)
[2022-04-16] MEDS: LORazepam 1 MG TABLET PO (05:02)
--- NOTE | 2022-04-16 08:19 | P.PN_ITS ---
Subjective Subjective Date Patient Seen: 04/16/22 Time Patient Seen: 08:19 Interval history: CC: covid ARDS called by nursing this morning with concern for possible STEMI Review of EKG does raise this concern for inferior TN Sats ok on max support, BP a little soft, pt heavily sedated to maintain sats, not complaining of chest pain Family determined to move to comfort care today will facilitate Exam Vital Signs (past 8 hours): - 04/16/22 01:00 04/16/22 01:00 04/16/22 02:00 Pulse Rate 73 62 Respiratory Rate 25 H 16 Blood Pressure Pulse Oximetry 88 L 85 L Oxygen Delivery Method Heated High Flow 04/16/22 02:01 04/16/22 02:01 04/16/22 03:00 Pulse Rate 66 Respiratory Rate 18 Blood Pressure 124/58 L 137/61 Pulse Oximetry 85 L Oxygen Delivery Method 04/16/22 03:00 04/16/22 04:00 04/16/22 04:01 Pulse Rate 64 59 L Respiratory Rate 15 16 Blood Pressure 107/57 L Pulse Oximetry 90 L 86 L Oxygen Delivery Method 04/16/22 04:01 04/16/22 05:00 04/16/22 05:02 Pulse Rate 59 L 69 Respiratory Rate 25 H 25 H Blood Pressure 129/58 L Pulse Oximetry 86 L 76 L Oxygen Delivery Method 04/16/22 05:02 04/16/22 05:00 04/16/22 06:00 Pulse Rate 63 61 Respiratory Rate 17 13 Blood Pressure Pulse Oximetry 82 L 88 L Oxygen Delivery Method Heated High Flow Non -Rebreather 04/16/22 06:01 04/16/22 06:01 04/16/22 02:10 Pulse Rate 69 Respiratory Rate 11 L Blood Pressure 118/55 L Pulse Oximetry 86 L 88 L Oxygen Delivery Method 04/16/22 07:00 04/16/22 07:00 04/16/22 07:13 Pulse Rate 54 L Respiratory Rate 23 Blood Pressure 97/54 L 115/63 Pulse Oximetry 92 Oxygen Delivery Method 04/16/22 07:40 04/16/22 07:59 04/16/22 08:00 Pulse Rate 58 L 57 L Respiratory Rate 23 23 Blood Pressure 100/59 L Pulse Oximetry 84 L 86 L Oxygen Delivery Method Fraction of Inspired Oxygen 100 Oxygen Delivery Method Heated High Flow,Non -Rebreather Oxygen Flow Rate 60 Narrative Exam Narrative: laying in bed supine Const General: frail appearing and ill appearing [facility] Head: normocephalic and atraumatic Resp Other: clear to auscultation bilaterally on max O2 support via nonrebreather and HFNC Cardio Other: regular rate and rhythm, strong peripheral pulses GI Other: soft nondistended Neuro Other: pt did just receive ativan and precedex and morphine she is responsive but not interactive today Objective Labs Result Diagrams: 04/16/22 03:30 04/16/22 03:30 Labs: Laboratory Results - last 24 hr 04/16/22 04/16/22 03:30 03:30 WBC 14.6 H RBC 3.46 L Hgb 10.6 L Hct 31.0 L MCV 89.7 MCH 30.6 MCHC 34.1 RDW 15.6 H Plt Count 141 L Neut % (Auto) 96.6 H Lymph % (Auto) 1.4 L [place] % (Auto) 1.3 L Eos % (Auto) 0.1 L Baso % (Auto) 0.6 Neut # (Auto) 36062 H Lymph # (Auto) 200 L [place] # (Auto) 200 Eos # (Auto) 0 Baso # (Auto) 100 Sodium 123 L Potassium 3.3 L Chloride 94 L Carbon Dioxide 25 BUN 26 H Creatinine 0.64 Estimated GFR > 60 BUN/Creatinine Ratio 40.6 H Glucose 111 H Calcium 6.6 L Total Bilirubin 0.3 AST 84 H ALT 84 H Alkaline Phosphatase 170 H D Total Protein 4.4 L Albumin 2.3 L Globulin 2.1 Albumin/Globulin Ratio 1.1 PFSH Medical History Anemia Anxiety Easy bruisability Eczema GERD (gastroesophageal reflux disease) Headache, migraine HTN (hypertension) Hx of scarlet fever Surgical History History of ankle surgery (~01/1992) History of lung biopsy (08/24/21) History of surgical procedure History of surgical procedure (11/2013) 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 Patient with extremely poor prognosis.? Patient is aware and family is aware and patient does not want to be intubated.?Decision made to move to comfort care today. #Covid pneumonia/ARDS/acute respiratory failure We will continue with supportive care.? We will provide morphine as well as lorazepam as needed for air hunger and agitation.? We will continue on Precedex and remdesivir and dexamethasone at this time. Hold baricitinib d/t clotting risk given STEMI. Comfort measures #STEMI, inferior, acute based on EKG findings stat troponin ordered not candidate for aggressive intervention. Family opting for comfort care. #Hyponatremia stable continue to monitor #hx of lung cancer stable monitor dispo: DNI/DNR status declining acutely ?55 minutes spent working with patient today Time Spent With Patient Critical Care time: I spent a total of [] minutes of critical care time on this patient's care today; this time is exclusive of procedural time. Quality VTE Deep Vein Thrombosis/Pulmonary Embolism Present on Admission: No
--- NOTE | 2022-04-16 10:05 | PC.NURSE ---
0930-Tele dock attendant Dr Fowler called this RN at bedside, Pt Spo2 70% with cyanosis to lips, Maxed out on O2, sharp decline, pt non repsonsive, and agonal breathing. Pt family is at bedside and verbalizes making patient DNR comfort care, witnessed by second PARTICIPANT ADMINISTRATOR. and Verbal order obtained with Dr Fowler.
--- NOTE | 2022-04-16 10:38 | PC.NURSE ---
Patient desating, family arrived and made the decision of DNR and comfort care only, Stone Driller Helper Dr Esquivel notified and verbal orders received, Dr Valladares also notified. Family at remains at bedside including , two sons and a grandson, family asked at 1030 to remove non-rebreather mask so patient can be more comfortable and they can see her face, mask removed.
--- NOTE | 2022-04-16 13:07 | RT ---
Pt on Comfort Care measures
--- NOTE | 2022-04-16 15:40 | CM.DPC ---
DCP Cont: DCP was made aware this morning that pt family has made pt DNR and comfort measures only. Pt's non-rebreather mask was removed. Pt expected to in the hospital per RN and MD due to her status. No discharge plan needed at this time. Raegan Dinero, JERMAIN/DCP
[2022-04-16] MEDS: diazePAM 10 MG/2 ML SYRINGE 2.5 MG IV (16:16)
--- NOTE | 2022-04-16 16:21 | PC.NURSE ---
Morphine order changed for comfort care per MD, continue to use current bag infusing until empty, discussed with pharmacy
[2022-04-16] MEDS: MORPHINE 2 MG/ML INJ IV (17:11)
[2022-04-16] MEDS: MORPHINE 50 MG in DEXTROSE 5 % IN WATER 45 ML IV (17:30)
--- NOTE | 2022-04-16 18:45 | PC.NURSE ---
Patient passed at 1727 with family at bedside, no heartbeat or breathsounds confirmed by two RNs, family took all patient belongings with them and chose [facility] home. Dr Alejandre notified.
--- NOTE | 2022-04-20 10:00 | PM.DDS.1 ---
Discharge Summary History of Illness Narrative: CC: shortness of breath Pt admitted with Covid pneumonia on maximum oxygen support short of intubation. Pt is DNI. On morning of 04/16/2022 EKG showed inferior STEMI with generally stable vitals no chest pain. Family arrived and made decision to move to comfort care. Pt remained with family in the room and comfortably the evening of 04/16/2022. I am grateful to our excellent nursing staff for their assistance and support for the family. Hospital Course Date of Admission: 04/10/22 15:32 Date of : 04/16/22 Primary care provider: Bridget Alejandre MD Consults: 04/16/22 11:21 Consult to Discharge Planning Routine Comment: Discharge provider: Demond Valladares MD Discharge Diagnosis: #STEMI #Covid-19 penumonia #ARDS #hyponatremia #hx of breast cancer Hospital Course: Vidhi Chow was admitted with acute hypoxic respiratory failure 2/2 covid infection. Her oxygen saturation remained tenuous but acceptable as long as she was immobile and calm, some sedation did help with that. Decision was made not to intubate as unlikely to help matters. Unfortunately she developed acute STEMI based on EKG findings and family opted for comfort care rather than pursuing anticoagulation or pressors. She comfortably with family at bedside later that day. Objective ECG Impression: acute new [place]GEN[place] inferior leads Labs Result Diagrams: 04/16/22 03:30 04/16/22 03:30
== END 2022-04-16 19:45 | disposition expired | DRG 177 ==
LOC: ED 15:28 → AC 15:33 → ICU 17:21
PROVIDERS: Internal Medicine; Admitting Provider Family Medicine; Emergency Provider Emergency Medicine; PCP Family Medicine; Referring Provider Emergency Medicine; Visit Provider Family Medicine
DX: U07.1 COVID-19 (principal); J12.82 Pneumonia due to coronavirus disease 2019; J80 Acute respiratory distress syndrome; I21.19 ST elevation (STEMI) myocardial infarction involving other coronary artery of inferior wall; E87.1 Hypo-osmolality and hyponatremia; C34.92 Malignant neoplasm of unspecified part of left bronchus or lung; C34.91 Malignant neoplasm of unspecified part of right bronchus or lung; J44.9 Chronic obstructive pulmonary disease, unspecified; F41.9 Anxiety disorder, unspecified; K21.9 Gastro-esophageal reflux disease without esophagitis; I10 Essential (primary) hypertension; D64.9 Anemia, unspecified; Z66 Do not resuscitate
CPT/HCPCS: 36415; 36569; 36591; 36592; 71045; 71275; 80048; 80053; 83605; 83615; 83735; 83880; 84550; 85025; 85379; 87449; 87635; 87797; 93005; 93010; 94660; 96374; 99285; 99291; C9803; C9113; J1100; J1642; J1650; J1940; J2270; J3360; Q9967